=== PATIENT | female | born 1930 | race Caucasian/White ===

== ENCOUNTER 2016-05-20 01:59 | Emergency (ER) | payer OTHER, MEDICARE ==
--- NOTE | 2016-05-20 02:04 | PDOC ---
History of Present Illness - General Chief Complaint: Pain, Acute Stated Complaint: PAIN TO BOTTOM OF RIGHT FOOT Time Seen by Provider: 05/20/16 02:03 - History of Present Illness Initial Comments: 05/20/16 02:20 This 86-year-old woman with a history of hypertension and anemia presents with a two-day history of right plantar foot pain. Patient denies trauma or overuse. No new footwear; patient states that she has been using the same flat loafers for some time. Pain is worse with weightbearing/walking. No previous history of pain in either foot. No other extremity symptoms. She denies paresthesias/numbness/joint swelling. No history of edema of the proximal right leg. Patient states that she took [id number]-lnc-ldlszie naproxen this morning without significant relief in her pain. Patient was seen by Dr. Evans with UTI; she was prescribed ciprofloxacin which she has taken intermittently because she states that she does not like the way it makes her feel. She denies dysuria/urinary frequency or urgency/abdominal or back pain. She has not had fever/chills or nausea. Past History - Past Medical History Allergies/Adverse Reactions: Allergies Allergy/AdvReac Type Severity Reaction Status Date / Time cephalexin monohydrate Allergy Verified 05/20/16 02:01 [From [employer]] Home Medications: Ambulatory Orders Amlodipine Besylate [Norvasc -] 5 mg PO DAILY 09/01/12 Anemia: Yes Asthma: No Cancer: No Cardiac Disorders: No CVA: No COPD: No CHF: No Dementia: No Diabetes: No GI Disorders: Yes (ANEMIA) Disorders: No HTN: Yes Hypercholesterolemia: No Liver Disease: No Seizures: No Thyroid Disease: No - Surgical History Abdominal Surgery: Yes Appendectomy: Yes Cardiac Surgery: No Cholecystectomy: No Lung Surgery: No Neurologic Surgery: No Orthopedic Surgery: No - Psycho/Social/Smoking Cessation Hx Anxiety: Yes Suicidal Ideation: No Smoking Status: No Smoking History: Never smoked Have you smoked in the past 12 months: No Number of Cigarettes Smoked Daily: 0 Hx Alcohol Use: No Drug/Substance Use Hx: No Substance Use Type: None Hx Substance Use Treatment: No Review of Systems - Review of Systems Able to Perform ROS?: Yes Comments:: 12 point review of systems is negative except for what is noted in the history of present illness *Physical Exam - Physical Exam Comments: GENERAL: Elderly female, alert and oriented 3, in no acute distress HEAD: Normal with no signs of trauma. EYES: PERRLA, EOMI, sclera anicteric, conjunctiva clear. ENT: Ears normal, nares patent, oropharynx clear without exudates. Dry mucous membranes. NECK: Normal range of motion, supple without lymphadenopathy, JVD, or masses. LUNGS: Breath sounds equal, clear to auscultation bilaterally. No wheezes, and no crackles. HEART:Regular rate and rhythm, normal S1 and S2 without murmur, rub or gallop. ABDOMEN:.normal bowel sounds No guarding,tenderness or rebound.No masses No distention. EXTREMITIES: Right footmild tenderness plantar aspect mid to hindfoot without palpable lesions or deformity Plantar tenderness worsened with dorsiflexion of toes Strongly palpable dorsalis pedis pulse at mid foot No deformity or tenderness of the dorsal aspect of the foot; distal extremity warm and dry No edema/tenderness/cords of right lower leg Remainder of the extremity exam was normal NEUROLOGICAL: Cranial nerves II through XII grossly intact. Normal speech. No focal neurological deficits SKIN: Warm, Dry, normal turgor, no rashes or lesions noted. Medical Decision Making - Medical Decision Making Right foot x-ray reveals small heel spur but no evidence of fracture or dislocation Clinical presentation most consistent with plantar fasciitis, in light of increased tenderness of the plantar aspect of the foot with dorsiflexion of the toes. Since patient had taken juxj-ycy-zodlvjn naproxen earlier in the day without significant relief, we will give the patient small (400 mg) dose of ibuprofen here and suggest 400 mg up to 3 times a day (taken with food) as needed. Patrick wrap applied to patient's right foot. She is been instructed to remove this during at night. Meanwhile, the patient should follow-up with Dr. Evans tomorrow by phone and follow-up in person as scheduled. Also, she should consider follow-up with either orthopedic group (referral information for [facility] given to patient ) or primer inspector for further advice regarding the diagnosis of plantar fasciitis *DC/Admit/Observation/Transfer Diagnosis at time of Disposition: Plantar fasciitis - Discharge Dispostion Disposition: HOME Condition at time of disposition: Stable - Referrals Referrals: Arsen Evans MD [Primary Care Provider] - Call tomorrow Froylan Fraser MD [Staff Physician] - 1 week - Patient Instructions Printed Discharge Instructions: DI for Plantar Fasciitis Additional Instructions: ibuprofen(motrin/advil)2 tabs up to 3 times a day[take with food] elevate foot as much as possible patrick wrap during day(take off at night) call Dr Evans tomorrow and followup as planned followup with orthopedic group(Dr Fraser)within 1 week
[2016-05-20 02:10] VITALS: BP 148/66; PULSE 70; TEMP 97.9; BMI 25.8
[2016-05-20] MEDS ORDERED: IBUPROFEN 400 MG TABLET (FP) PO ONE ×2 (02:58→02:59)
== END 2016-05-20 03:07 | disposition home or self-care (01) ==
LOC: FER 01:59
DX: M72.2 Plantar fascial fibromatosis (principal); D64.9 Anemia, unspecified; I10 Essential (primary) hypertension
CPT/HCPCS: 73630-TC-RT; 99281-25

== ENCOUNTER 2017-05-20 03:58 | Inpatient (IN) | payer OTHER, MEDICARE ==
--- NOTE | 2017-05-20 04:19 | PDOC ---
History of Present Illness - General Chief Complaint: Respiratory Stated Complaint: COUGH X ONE MONTH Time Seen by Provider: 05/20/17 04:18 History Source: Patient Exam Limitations: No Limitations - History of Present Illness Initial Comments: 05/20/17 04:20 This is a 87-year-old female who is brought in by her son for evaluation of coughing. Patient said she has been coughing 1 month. Patient had a recent upper respiratory tract infection and said it has persisted as a cough for approximately one month. Patient denies any chest pain or shortness of breath. Patient however is noted to be tachypnea here in the emergency room. Patient denies any fevers or chills. Patient denies any production of sputum. Patient denies any nausea vomiting or diarrhea. PAST MEDICAL HISTORY: no significant history PAST SURGICAL HISTORY: no significant history FAMILY HISTORY: no pertinant history SOCIAL HISTORY: Pt lives with family and is retired. MEDICATIONS: reviewed ALLERGIES: As per nursing notes Review of Systems General: No fevers or chills, no weakness, no weight loss HEENT: No change in vision. No sore throat,. No ear pain CardioVascular: No chest pain, + shortness of breath Respiratory:+ cough, and wheezing. Gastrointestinal: no nausea, vomitting, diarrhea or constipation, No rectal bleeding Genitourinary: No dysuria, hematuria, or frequency Musculoskeletal: No joint or muscle pain or swelling Neurologic: No headache, vertigo, dizziness or loss of consciousness Psychiatric: nor depression Skin: No rashes or easy bruising Endocrine: no increased thirst or abnormal weight change Allergic: no skin or latex allergy All other systems reviewed and normal Exam: General: Well-nourished well-developed individual, in mild respiratory distress HEENT: Throat: Normal, tonsils normal, no erythema or exudate Neck: Supple, no meningeal signs, no lymphadenopathy Eyes::Pupils equal reactive and round, extraocular motion intact Chest: Nontender to palpation Cardiac: Tachycardic with irregularly irregular rate and rhythm, Respiratory: Decreased breath sounds bilateral with expiratory wheezing bilateral primarily at bases Abdomen: Soft, nondistended, normal bowel sounds, nontender to palpation diffusely Extremities: Warm, dry, no cyanosis, clubbing, or edema Skin: No rashes Neuro: Alert and oriented x3, CN II - XII intact, nonfocal exam with normal strength, normal sensation, normal reflexes, normal gait, Psych: Normal mood and affect Assessment and plan: This is an 87-year-old female who is at her baseline healthy. Patient has had a week of upper respiratory tract symptoms and cough. Patient comes in for evaluation. Patient is noted to be coughing in the emergency room and tachypnea as well as tachycardic and in new onset A. fib. Differential diagnosis includes new-onset A. fib, pneumonia, coronary artery disease, upper respiratory tract infection, bronchitis Will obtain workup including CBC, comp. Lactic acid, troponin, EKG, urine, urine cultures, blood, urine blood cultures, venous blood gas. We will start DuoNeb's for the wheezing, and give prednisone will monitor for increase in heart rate as patient is already tachycardia at 1:30 Will follow-up workup and reassess Reassessment 05:20 Patient is tachycardia at 150 after the second DuoNeb. Will discontinue DuoNeb' s at this time as wheezing is somewhat improved and oxygen is 98%. Reassessment and repeat vitals at 05:40 15 minutes after stopping the DuoNeb heart rate is now down to 125 which is a little less than what patient came in it. EKG shows atrial fibrillation which is new onset with some flipped T's and mild ST depression anterior laterally most likely secondary to some hypoxia and the afib. a fib appears to be new onset Patient's symptoms have improved and decreased wheezing. Chest x-ray shows bilateral infiltrates at the bases will start patient on Levaquin 750 mg IV as she is ALLERGIC to Keflex. 05/20/17 06:22 Patient's O2 sat is improved but still low 90s. patient's heart rate is now around 110, patient's blood pressure is stable and she does still remained tachypnea. Will increase oxygen to 3 L by nasal cannul which improved her O2 sat to 95- 96% Patient's initial troponin is measurable at 0.02 Patient's hemoglobin was 7.7 however on review of prior visits patient back in 2016 had a hemoglobin of 7.1 that appeared to be her baseline. Patient will be admitted to an impatient telemetry bed for management of her pneumonia, rule her out for ACS, and further evaluation of her anemia. Patient's BUN and creat were somewhat elevated. Patient not given full sepsis fluids as her blood pressure is stable and she was afebrile, she had no elevated white count or left shift. And her lactic acid is normal 05/20/17 06:51 Discussed admission with hospitalist as well as Dr. waller patient accepted for admission to a telemetry bed here at [facility] . Signout given to the admitting hospitalist, who accepts the patient. Discussed plan with the patient and her son at bedside, Patient and son aware of the plan and agree. Patient is clinically improved and stable. Past History - Past Medical History Allergies/Adverse Reactions: Allergies Allergy/AdvReac Type Severity Reaction Status Date / Time cephalexin monohydrate Allergy Verified 05/20/16 02:01 [From [employer]] Home Medications: Ambulatory Orders Amlodipine Besylate [Norvasc -] 5 mg PO DAILY 09/01/12 Anemia: Yes Asthma: No Cancer: No Cardiac Disorders: No CVA: No COPD: No CHF: No Dementia: No Diabetes: No GI Disorders: Yes (ANEMIA) Disorders: No HTN: Yes Hypercholesterolemia: No Liver Disease: No Seizures: No Thyroid Disease: No - Surgical History Abdominal Surgery: Yes Appendectomy: Yes Cardiac Surgery: No Cholecystectomy: No Lung Surgery: No Neurologic Surgery: No Orthopedic Surgery: No - Suicide/Smoking/Psychosocial Hx Smoking Status: No Smoking History: Never smoked Have you smoked in the past 12 months: No Number of Cigarettes Smoked Daily: 0 Hx Alcohol Use: No Drug/Substance Use Hx: No Substance Use Type: None Hx Substance Use Treatment: No ED Treatment Course - LABORATORY CBC & Chemistry Diagram: 05/20/17 04:57 05/20/17 04:57 *DC/Admit/Observation/Transfer Diagnosis at time of Disposition: New onset a-fib Pneumonia Qualifiers: Pneumonia type: due to unspecified organism Laterality: bilateral Lung location : lower lobe of lung Qualified Code(s): J18.9 - Pneumonia, unspecified organism - Discharge Dispostion Condition at time of disposition: Stable Admit: Yes - Referrals Referrals: Arsen Evans MD [Primary Care Provider] - - Patient Instructions - Post Discharge Activity
[2017-05-20 04:21] VITALS: BMI 25.8
[2017-05-20] MEDS ORDERED: DEXAMETHASONE SOD PHOSPHATE 10 MG/1 ML VIAL IVPUSH ONE (04:29)
[2017-05-20] MEDS ORDERED: DEXAMETHASONE SOD PHOSPHATE 10 MG/1 ML VIAL ONE (04:38)
[2017-05-20] MEDS ORDERED: ALBUTEROL SO4 2.5/IPRATROPIUM 0.5 INH SOL 3 ML VIAL.NEB. NEB ONE (04:38)
[2017-05-20] MEDS: ALBUTEROL SO4 2.5/IPRATROPIUM 0.5 INH SOL 3 ML VIAL.NEB. NEB SCH ×2 (04:40→05:02)
[2017-05-20] MEDS ORDERED: SODIUM CHLORIDE 1,000 ML IV STA (04:45)
[2017-05-20] MEDS ORDERED: dilTIAZem HCL 60 MG TABLET (FP) PO ONE (05:17)
[2017-05-20] MEDS ORDERED: dilTIAZem HCL 30 MG TABLET (FP) ONE (05:20)
[2017-05-20 05:22] LABS: BASO % 2.4 % (0-2.0); EOS % 1.1 % (0-4.5); HEMATOCRIT 27.5 % (32.4-45.2); HEMOGLOBIN 7.7 GM/dL (10.7-15.3); LYMPH % 13.1 % (8-40); MCHC 27.8 g/dl (32.0-36.0); MEAN CELL VOLUME 63.9 fl (80-96); MEAN PLT VOLUME 8.9 fl (7.5-11.1); MONO % 8.5 % (3.8-10.2); NEUT % 74.9 % (42.8-82.8); PLATELET COUNT 311 K/MM3 (134-434); RBC 4.31 M/mm3 (3.60-5.2); RDW 21.1 % (11.6-15.6); WHITE BLOOD COUNT 7.8 K/mm3 (4.0-10.0)
[2017-05-20 05:23] LABS: MCH 17.8 pg (25.7-33.7)
[2017-05-20 05:24] LABS: VENOUS PC02 56.7 mmHg (38-52); VENOUS PH 7.32 (7.32-7.42); VENOUS PO2 25.3 mmHg (28-48)
[2017-05-20] MEDS ORDERED: AZITHROMYCIN 500 MG VIAL IVPB ONE (05:30)
[2017-05-20] MEDS ORDERED: cefTRIAXone SODIUM 1 GM VIAL ONE (05:30)
[2017-05-20] MEDS ORDERED: AZITHROMYCIN IVPB 500 MG in DEXTROSE 5%-WATER - 250 ML IVPB ONE (05:31)
[2017-05-20 05:41] LABS: ALBUMIN 3.1 g/dl (3.4-5.0); ALK PHOS 166 U/L (45-117); ANION GAP 12 (8-16); BILIRUBIN,TOTAL 0.7 mg/dL (0.2-1.0); BLOOD UREA NITROGEN 25 mg/dL (7-18); CALCIUM 9.2 mg/dL (8.5-10.1); CHLORIDE 109 mmol/L (98-107); CO2 24 mmol/L (21-32); CREATININE 1.2 mg/dL (0.55-1.02); GLUCOSE,RANDOM 128 mg/dL (74-106); POTASSIUM 4.3 mmol/L (3.5-5.1); SGOT/AST 24 U/L (15-37); SGPT/ALT 27 U/L (12-78); SODIUM 145 mmol/L (136-145); TOT PROT 6.1 g/dl (6.4-8.2)
--- NOTE | 2017-05-20 06:49 | HP ---
CHIEF COMPLAINT: shortness of breath PCP: Dr Evans HISTORY OF PRESENT ILLNESS: Patient is a 87 y/o female with a past medical history of hypertension, nenal calculi, and iron deficency anemia. Patient reports one month of shortness of breath and cough. She reports the cough persisted for one month, however, she developed dyspnea upon exertion within the past week. Patient reports the shortness of breath worsened within past 24 hours as result she sought evaluation in the emergency department. ER course was notable for: (1)spo2 88% on room air (2)ekg afib with rapid ventricular response, rate 134 (3) chest xray pulmonary vascular congestion with superimposed bilateral infilitrates, cardiomegly. Recent Travel: none PAST MEDICAL HISTORY: hypertension and iron deficency anemia PAST SURGICAL HISTORY: urethral stent Social History: retired, resides at home alone Smoking: none Alcohol: none Drugs: none Family History: mother decieased hear failure father [place] Allergies cephalexin monohydrate [From [employer]] Allergy (Verified 05/20/16 02:01) HOME MEDICATIONS: Home Medications Medication Instructions Recorded Amlodipine Besylate [Norvasc -] 5 mg PO DAILY 09/01/12 REVIEW OF SYSTEMS CONSTITUTIONAL: Absent: fever, chills, diaphoresis, generalized weakness, malaise, loss of appetite, weight change HEENT: Absent: rhinorrhea, nasal congestion, throat pain, throat swelling, difficulty swallowing, mouth swelling, ear pain, eye pain, visual changes CARDIOVASCULAR: Absent: chest pain, syncope, palpitations, irregular heart rate, lightheadedness , peripheral edema RESPIRATORY: Present: : cough, shortness of breath, dyspnea with exertion Absent: orthopnea, wheezing, stridor, hemoptysis GASTROINTESTINAL: Absent: abdominal pain, abdominal distension, nausea, vomiting, diarrhea, constipation, melena, hematochezia GENITOURINARY: Absent: dysuria, frequency, urgency, hesitancy, hematuria, flank pain, genital pain MUSCULOSKELETAL: Absent: myalgia, arthralgia, joint swelling, back pain, neck pain SKIN: Absent: rash, itching, pallor HEMATOLOGIC/IMMUNOLOGIC: Absent: easy bleeding, easy bruising, lymphadenopathy, frequent infections ENDOCRINE: Absent: unexplained weight gain, unexplained weight loss, heat intolerance, cold intolerance NEUROLOGIC: Absent: headache, focal weakness or paresthesias, dizziness, unsteady gait, seizure, mental status changes, bladder or bowel incontinence PSYCHIATRIC: Absent: anxiety, depression, suicidal or homicidal ideation, hallucinations. PHYSICAL EXAMINATION Vital Signs - 24 hr 05/20/17 05/20/17 05/20/17 04:15 04:45 04:54 Temperature 98.1 F 98.7 F Pulse Rate 130 H 132 H Pulse Rate [ Right] Respiratory 26 H Rate Blood Pressure 143/100 Blood Pressure [Right] O2 Sat by Pulse 95 92 L Oximetry (%) 05/20/17 05:24 Temperature Pulse Rate Pulse Rate [ 128 H Right] Respiratory 24 Rate Blood Pressure Blood Pressure 122/88 [Right] O2 Sat by Pulse 95 Oximetry (%) GENERAL: Awake, alert, and fully oriented, anxious. HEAD: Normal with no signs of trauma. EYES: Pupils equal, round and reactive to light, extraocular movements intact, sclera anicteric, conjunctiva clear. No lid lag. EARS, NOSE, THROAT: Ears normal, nares patent, oropharynx clear without exudates. Moist mucous membranes. NECK: Normal range of motion, supple without lymphadenopathy, + JVD, or masses. LUNGS: Breath sounds equal, bilateral inspiratory wheeze to apexes, rales noted to bases, no crackles. rr 30, + accessory muscle use. HEART: Regular rate and rhythm, normal S1 and S2 without murmur, rub or gallop. ABDOMEN: Soft, nontender, not distended, normoactive bowel sounds, no guarding, no rebound, no masses. No hepatomegaly or splenomegaly. MUSCULOSKELETAL: Normal range of motion at all joints. No bony deformities or tenderness. No CVA tenderness. UPPER EXTREMITIES: 2+ pulses, warm, well-perfused. No cyanosis. No clubbing. No peripheral edema. LOWER EXTREMITIES: 2+ pulses, warm, well-perfused. No calf tenderness. No peripheral edema. NEUROLOGICAL: Cranial nerves II-XII intact. Normal speech. Normal gait. PSYCHIATRIC: Cooperative. Good eye contact. Appropriate mood and affect. SKIN: Warm, dry, normal turgor, no rashes or lesions noted, normal capillary refill. Laboratory Results - last 24 hr 05/20/17 05/20/17 05/20/17 04:21 04:57 04:57 WBC 7.8 RBC 4.31 Hgb 7.7 L Hct 27.5 L MCV 63.9 L MCH 17.8 L MCHC 27.8 L RDW 21.1 H Plt Count 311 MPV 8.9 Neutrophils % 74.9 Lymphocytes % 13.1 Monocytes % 8.5 Eosinophils % 1.1 Basophils % 2.4 H VBG pH POC VBG pCO2 POC VBG pO2 Mixed VBG HCO3 Sodium 145 Potassium 4.3 Chloride 109 H Carbon Dioxide 24 Anion Gap 12 BUN 25 H Creatinine 1.2 H Creat Clearance w eGFR 42.70 Random Glucose 128 H Lactic Acid Calcium 9.2 Total Bilirubin 0.7 AST 24 ALT 27 Alkaline Phosphatase 166 H Troponin I 0.02 Total Protein 6.1 L Albumin 3.1 L 05/20/17 05/20/17 04:57 04:57 WBC RBC Hgb Hct MCV MCH MCHC RDW Plt Count MPV Neutrophils % Lymphocytes % Monocytes % Eosinophils % Basophils % VBG pH 7.32 POC VBG pCO2 56.7 H POC VBG pO2 25.3 L Mixed VBG HCO3 28.3 H Sodium Potassium Chloride Carbon Dioxide Anion Gap BUN Creatinine Creat Clearance w eGFR Random Glucose Lactic Acid 1.5 Calcium Total Bilirubin AST ALT Alkaline Phosphatase Troponin I Total Protein Albumin ASSESSMENT/PLAN: f/e/n - low sodium diet - replete lytes prn ppx - oob - scd - blanca dispo: pt requires inpatient telemetry Problem List - Problem (1) Hypertension Assessment/Plan: - b/p at goal, start metroprolol - b/p q 4h Code(s): I10 - ESSENTIAL (PRIMARY) HYPERTENSION (2) New onset a-fib Assessment/Plan: -maricel vasc score of 4, will consider noac, pending stool guiac, cardizem given in ED, in setting of acute heart failure, will start metoprolol - continous cardiac monitoring - appreciate cardiology input Code(s): I48.91 - UNSPECIFIED ATRIAL FIBRILLATION (3) Pneumonia Assessment/Plan: - chest xray reviewed, suspicious for superimposed pna, will continue levaquin - monitor cbc and fever trend Code(s): J18.9 - PNEUMONIA, UNSPECIFIED ORGANISM Qualifiers: Pneumonia type: due to unspecified organism Laterality: bilateral Lung location: lower lobe of lung Qualified Code(s): J18.9 - Pneumonia, unspecified organism (4) Microcytic anemia Assessment/Plan: -hgb 7.7 baseline 10.2, pt reports a history of iron deficency anemia, hgb maybe dilutional in setting of chf, pending stool guiac, iron studies - repeat cbc in PM Code(s): D50.9 - IRON DEFICIENCY ANEMIA, UNSPECIFIED (5) Congestive heart failure (CHF) Assessment/Plan: - pending bnp, spo2 91% on 4lnc with tachypnea, bipap ordered - start lasix 40mg iv x 1 - stat echo ordered - strict i/o and daily weight Code(s): I50.9 - HEART FAILURE, UNSPECIFIED Qualifiers: Heart failure type: unspecified Heart failure chronicity: acute Qualified Code(s): I50.9 - Heart failure, unspecified Visit type - Emergency Visit Emergency Visit: Yes ED Registration Date: 05/20/17 Care time: The patient presented to the Emergency Department on the above date and was hospitalized for further evaluation of their emergent condition. - New Patient This patient is new to me today: Yes Date on this admission: 05/20/17 - Critical Care Critical Care patient: Yes Total Critical Care Time (in minutes): 45 Critical Care Statement: The care of this patient involved high complexity decision making to prevent further life threatening deterioration of the patient 's condition and/or to evaluate & treat vital organ system(s) failure or risk of failure. Hospitalist Screening - Colonoscopy Questionnaire Colonoscopy Questionnaire: Colonoscopy Questionnaire - Patient: 50 - 75 years old and never had a screening colonoscopy: No History of colon or rectal polyps, or CA: No History of IBD, Crohn's disease or UC: No History of abdominal radiation therapy as a child: No - Relative: 1 with colon or rectal CA, or polyps at age 60 or younger: Unknown Colon or rectal CA diagnosed at age 45 or younger: Unknown Multiple relatives with colon or rectal CA: Unknown - Outcome: Screening Result: Negative Screen
[2017-05-20] MEDS ORDERED: FUROSEMIDE 40 MG/4 ML INJECTABLE VIAL IVPUSH ONE (08:00)
[2017-05-20] MEDS ORDERED: metoPROLOL SUCCINATE 25 MG TAB.SR.24H (FP) PO ONE (08:00)
[2017-05-20] MEDS ORDERED: metoPROLOL SUCCINATE 25 MG TAB.SR.24H (FP) ONE (08:18)
[2017-05-20] MEDS ORDERED: methylPREDNISolone NA SUCC 40 MG/1 ML VIAL ONE (08:18)
[2017-05-20] MEDS ORDERED: FUROSEMIDE 40 MG/4 ML INJECTABLE VIAL ONE (08:18)
[2017-05-20] MEDS: methylPREDNISolone NA SUCC 40 MG/1 ML VIAL IVPUSH SCH ×3 (08:20→21:12)
[2017-05-20 09:40] LABS: URINE APPEARANCE Clear; URINE BILIRUBIN Negative (NEGATIVE); URINE BLOOD Negative (NEGATIVE); URINE GLUCOSE (UA) Negative (NEGATIVE); URINE KETONE Negative (NEGATIVE); URINE NITRITE Negative (NEGATIVE); URINE PROTEIN Negative (NEGATIVE); URINE UROBILINOGEN 0.2 (0.2-1.0)
[2017-05-20 10:12] LABS: URINE COLOR YELLOW; URINE LEUK ESTERASE TRACE (NEGATIVE)
[2017-05-20 11:04] LABS: EPI CELLS FEW /HPF; URINE BACTERIA NONE SEEN /hpf (NEGATIVE); URINE RBC 0-1 /hpf (0-3)
--- NOTE | 2017-05-20 12:30 | CONSULT ---
Consult Consult Specialty:: Cardiology Referred by:: Erika Crook Reason for Consultation:: New afib - History of Present Illness Chief Complaint: Persistent cough for 1 month History of Present Illness: 87 yo female, with hx HTN, brought in by her son for evaluation of coughing. Patient has no history of AR, CHF. She wa stold years ago, by Dr Donahue (her PMD then) that she had "fluid behind the heart" -> no direct treatment. About 8-9 yrs ago, she had CP -. [facility] -> "inconclusive" -> saw cardiology in follow up (? name) and was told that nothing was wrong. She denies CP since. She has had mild CANDI for years. About a month ago, she started with a dry cough -. mostly when on her back in bed -. better when on stomach. She denies wt gain, worsening edema. She does have GERD at baseline -. prn anti-acids In the ER , she was found in rapid afib 130s, wheezing -> initially treated with duoneb and with abx for pneumonia -> HR got worse with duoneB -better with BB - History Source History Provided By: Patient - Past Medical History Cardio/Vascular: Yes: HTN Renal/: Yes: Renal Calculi Heme/Onc: Yes: Anemia (fe def) Psych: Yes: Anxiety, Depression - Past Surgical History Past Surgical History: Yes: Hysterectomy, Tonsillectomy - Alcohol/Substance Use Hx Alcohol Use: No - Smoking History Smoking history: Never smoked Have you smoked in the past 12 months: No Aproximately how many cigarettes per day: 0 - Social History Usual Living Arrangement: Alone Home Medications - Allergies Allergies/Adverse Reactions: Allergies Allergy/AdvReac Type Severity Reaction Status Date / Time cephalexin monohydrate Allergy Verified 05/20/16 02:01 [From Keflex] - Home Medications Home Medications: Ambulatory Orders Amlodipine Besylate [Norvasc -] 5 mg PO DAILY 09/01/12 Family Disease History - Family Disease History Family Disease History: Heart Disease: Mother (CHF in her 60s) Other Family History: 4 children Review of Systems - Review of Systems Constitutional: denies: No Symptoms, Chills, Diaphoresis, Fever, Lethargy, Loss of Appetite, Malaise, Night Sweats, Unintentional Wgt. Loss, Weakness, Other Eyes: denies: No Symptoms, Blind Spots, Blurred Vision, Double Vision, Eye Pain , Floaters, Photophobia, Recent Change in Vision, Other Cardiovascular: reports: Edema, Shortness of Breath Respiratory: reports: Cough Gastrointestinal: reports: No Symptoms Genitourinary: denies: No Symptoms, Burning, Discharge, Dysuria, Flank Pain, Frequency, Hematuria, Incontinence, Lesions, Menses, Pain, Testicular Mass, Testicular Pain, Testicular Swelling, Urgency, Vaginal Bleeding, Other Musculoskeletal: denies: No Symptoms, Back Pain, Crepitus, Decreased ROM, Extremity Pain, Joint Pain, Joint Swelling, Muscle Pain, Muscle Cramps, Muscle Weakness, Other Neurological: denies: No Symptoms, Change in LOC, Change in Speech, Confusion, Dizziness, Headache, Incoordination, Numbness, Parasthesia, Pre-Existing Deficit , Seizure, Syncope, Tremors, Unsteady Gait, Weakness, Other Psychiatric: reports: Anxiety, Depression Physical Exam Vital Signs: Vital Signs Temperature 98.7 F 05/20/17 04:54 Pulse Rate 58 L 05/20/17 09:13 Respiratory Rate 24 05/20/17 09:13 Blood Pressure 118/58 05/20/17 09:13 O2 Sat by Pulse Oximetry (%) 91 L 05/20/17 09:13 Constitutional: Yes: No Distress Eyes: Yes: Conjunctiva Clear HENT: Yes: Atraumatic Neck: Yes: Supple Cardiovascular: Yes: Pulse Irregular Respiratory: Yes: Rales (few at bases). No: Rhonchi, Wheezes Gastrointestinal: Yes: Normal Bowel Sounds, Soft. No: Tenderness Edema: No Peripheral Pulses WNL: Yes Neurological: Yes: Alert, Oriented Psychiatric: Yes: Alert, Oriented Labs: CBC, BMP 05/20/17 04:57 05/20/17 04:57 Imaging - Results Chest X-ray: Report Reviewed, Image Reviewed EKG: Report Reviewed (Afib at 134, ant-lat St-T changes) Assessment/Plan 87 yo female with the above history, here with dry cough for a month -. found with evidence of CHF, rapid afib and possible URI/?pna. The CHF may be from diastolic dysfunction in setting of rapid afib. The CHF is mild and I wonder about other causes of bronchospasm (such as infection, underlying lung dz, though no hx) She has a high CHADs/modified CHADS score and should be anticoagulated chronically No evidence of ACS Rec: Torpol XL 50 daily -. follow for worsening bronchospasm Lasix 40 mg IV daily Lovenox treatment dose -. switch to Po eliquis 5 biD tomorrow, if continues to improve Follow on echo results Will need outpt stress test , holter Thanks! We'll follow! D/w pt and family at length D/w Erika Crook
[2017-05-20] MEDS: ENOXAPARIN NA (PORCINE) 60 MG/0.6 ML DISP.SYRIN SQ SCH ×2 (12:50→21:12)
--- NOTE | 2017-05-20 13:43 | EKG ---
Test Reason : Blood Pressure : / mmHG Vent. Rate : 134 BPM Atrial Rate : 122 BPM P-R Int : 000 ms QRS Dur : 098 ms QT Int : 318 ms P-R-T Axes : 000 017 191 degrees QTc Int : 474 ms ATRIAL FIBRILLATION WITH RAPID VENTRICULAR RESPONSE ABNORMAL ECG NO PREVIOUS ECGS AVAILABLE Confirmed by SUE ACOSTA, JANICE ([id number]) on 05/20/2017 1:43:41 PM Referred By: MD SORIA Confirmed By:JANICE ROGERS MD
[2017-05-20] MEDS: ALBUTEROL SO4 2.5/IPRATROPIUM 0.5 INH SOL 3 ML VIAL.NEB. NEB PRN (21:11)
--- NOTE | 2017-05-21 08:22 | PN ---
Physical Exam: SUBJECTIVE: Patient seen and examined, reports feeling short of breath, patient denies any chest pain OBJECTIVE: Patient is a 87 y/o female with a past medical history of hypertension, nenal calculi, and iron deficiency anemia. Patient was admitted from the emergency department for chf, new onset afib, and hypertension. Vital Signs Period Temp Pulse Resp BP Sys/Marino Pulse Ox Last 24 Hr 97.3 F-98.6 F 58-106 18-24 101-127/46-69 85-98 GENERAL: The patient is awake, alert, and fully oriented, in no acute distress. HEAD: Normal with no signs of trauma. EYES: PERRL, extraocular movements intact, sclera anicteric, conjunctiva clear. No ptosis. ENT: Ears normal, nares patent, oropharynx clear without exudates, moist mucous membranes. NECK: Trachea midline, full range of motion, supple. LUNGS: Breath sounds equal, rhonchi to apexes, rales to bilateral bases, no wheezes, no crackles, no accessory muscle use. HEART: Regular rate and rhythm, S1, S2 without murmur, rub or gallop. ABDOMEN: Soft, nontender, nondistended, normoactive bowel sounds, no guarding, no rebound, no hepatosplenomegaly, no masses. EXTREMITIES: 2+ pulses, warm, well-perfused, no edema. NEUROLOGICAL: Cranial nerves II through XII grossly intact. Normal speech, gait not observed. PSYCH: Normal mood, normal affect. SKIN: Warm, dry, normal turgor, no rashes or lesions noted Laboratory Results - last 24 hr CBC WBC 4.3 K/mm3 (4.0-10.8) 05/21/17 07:40 RBC 3.81 M/mm3 (3.60-5.2) 05/21/17 07:40 Hgb 7.1 GM/dl (10.7-15.3) L 05/21/17 07:40 Hct 24.0 % (32.4-45.2) L 05/21/17 07:40 MCV 63.0 fl (80-96) L 05/21/17 07:40 MCH 18.7 pg (25.7-33.7) L 05/21/17 07:40 MCHC 29.6 g/dl (32.0-36.0) L 05/21/17 07:40 RDW 19.2 % (11.6-15.6) H D 05/21/17 07:40 Plt Count 308 K/MM3 (134-434) 05/21/17 07:40 MPV 8.6 fl (7.5-11.1) 05/21/17 07:40 Neutrophils % 82.8 % (42.8-82.8) 05/21/17 07:40 Lymphocytes % 10.6 % (8-40) 05/21/17 07:40 Monocytes % 6.4 % (3.8-10.2) 05/21/17 07:40 Eosinophils % 0.1 % (0-4.5) 05/21/17 07:40 Basophils % 0.1 % (0-2.0) 05/21/17 07:40 Retic Count 2.25 % (0.5-1.5) H 05/20/17 08:15 CMP Sodium 140 mmol/L (136-145) 05/21/17 07:40 Potassium 4.7 mmol/L (3.5-5.1) 05/21/17 07:40 Chloride 107 mmol/L (98-107) 05/21/17 07:40 Carbon Dioxide 25 mmol/L (22-28) 05/21/17 07:40 Anion Gap 8 (8-16) 05/21/17 07:40 BUN 35 mg/dl (7-18) H 05/21/17 07:40 Creatinine 1.5 mg/dl (0.6-1.3) H D 05/21/17 07:40 Creat Clearance w eGFR 33.00 (>60) 05/21/17 07:40 Random Glucose 183 mg/dl (74-106) H D 05/21/17 07:40 Lactic Acid 1.4 mmol/L (0.0-2.0) 05/21/17 07:40 Calcium 9.2 mg/dl (8.4-10.2) 05/21/17 07:40 Phosphorus 4.5 mg/dl (2.5-4.6) 05/21/17 07:40 Magnesium 1.8 mg/dL (1.8-2.4) 05/20/17 08:15 Total Bilirubin 0.6 mg/dl (0.2-1.0) D 05/21/17 07:40 AST 18 U/L (10-42) 05/21/17 07:40 ALT 19 U/L (10-40) D 05/21/17 07:40 Alkaline Phosphatase 117 U/L (32-92) H D 05/21/17 07:40 Creatine Kinase 14 IU/L (26-192) L 05/21/17 07:40 Troponin I < 0.03 ng/ml (0.00-0.06) 05/21/17 07:40 B-Natriuretic Peptide 3417.30 pg/ml (5-450) H 05/20/17 08:15 Total Protein 5.4 g/dl (6.4-8.3) L 05/21/17 07:40 Albumin 2.9 g/dl (3.5-5.0) L 05/21/17 07:40 Active Medications Generic Name Dose Route Start Last Admin Trade Name Freq PRN Reason Stop Dose Admin Albuterol/Ipratropium 1 amp 05/20/17 07:49 05/20/17 21:11 Duoneb - NEB 1 amp RQID PRN Administration SHORT OF BREATH/WHEEZING Enoxaparin Sodium 60 mg 05/20/17 11:00 05/20/17 21:12 Lovenox - SQ 60 mg BID TRES Administration Furosemide 40 mg 05/21/17 10:00 Lasix Injection - IVPUSH DAILY [facility] Methylprednisolone Sodium Succinate 40 mg 05/20/17 07:45 05/20/17 21:12 Solu-Medrol - IVPUSH 40 mg TID TRES Administration Metoprolol Succinate 50 mg 05/21/17 10:00 Toprol Xl - PO DAILY [facility] Microbiology 05/20/17 09:25 Urine - Urine Clean Catch Urine Culture - Final 05/20/17 04:57 Blood - Peripheral Venous Blood Culture - Preliminary NO GROWTH OBTAINED AFTER 24 HOURS, INCUBATION TO CONTINUE FOR 4 DAYS. 05/20/17 04:57 Blood - Peripheral Venous Blood Culture - Preliminary NO GROWTH OBTAINED AFTER 24 HOURS, INCUBATION TO CONTINUE FOR 4 DAYS. IMAGING chest xray pulmonary vascular congestion with superimposed bilateral infilitrates, cardiomegly. ekg afib with rapid ventricular response, rate 134 chest xray (05/21/17) bilateral pleural effusions with compressive atelactasis ASSESSMENT/PLAN: 1) Cardiovascular new onset afib - rate controlled continue toprol 50mg daily, continous cardiac monitoring - continue lovenox - echo ef 70%, diastolic dysfunction, severe TR - pending tsh - cardiology, Dr Thomas, consulted and following acute diastolic congestive heart failure - echo reviewed, continue lasix 40mg iv daily - continue I/O and daily weight, ramirez cather ordered for accurate measurements of I/O hypertension - continue toprol, b/p at goal 2) pulm bilateral pleural effusions - repeat chest xray today billateral pleural effusions - spo2 95% on 3L NC, keep spo2 above 92% with supplemental O2 and bipap as needed - appreciate pulmonary input, pt may require a thoracentesis - continue emperic levaquin 3) heme/onc microcytic anemia - repeat hgb today, 7.1, baseline 10.2, stool guiac is negative, pending iron studies, will order 2 units of prbc and repeat hgb at 1999. f/e/n - low sodium diet - replete electrolytes prn ppx - lovenox - pepcid - scd - physical therapy evaluation dispo: pt requires inpatient admission Problem List - Problems (1) Hypertension Code(s): I10 - ESSENTIAL (PRIMARY) HYPERTENSION (2) New onset a-fib Code(s): I48.91 - UNSPECIFIED ATRIAL FIBRILLATION (3) Pneumonia Code(s): J18.9 - PNEUMONIA, UNSPECIFIED ORGANISM Qualifiers: Pneumonia type: due to unspecified organism Laterality: bilateral Lung location: lower lobe of lung Qualified Code(s): J18.9 - Pneumonia, unspecified organism (4) Microcytic anemia Code(s): D50.9 - IRON DEFICIENCY ANEMIA, UNSPECIFIED (5) Congestive heart failure (CHF) Code(s): I50.9 - HEART FAILURE, UNSPECIFIED Qualifiers: Heart failure type: unspecified Heart failure chronicity: acute Qualified Code(s): I50.9 - Heart failure, unspecified Visit type - Emergency Visit Emergency Visit: Yes ED Registration Date: 05/20/17 Care time: The patient presented to the Emergency Department on the above date and was hospitalized for further evaluation of their emergent condition. - New Patient This patient is new to me today: No - Critical Care Critical Care patient: No - Discharge Referral Referred to [facility] No
[2017-05-21 08:32] LABS: ANION GAP 8 (8-16); CALCIUM 9.2 mg/dl (8.4-10.2); CHLORIDE 107 mmol/L (98-107); CO2 25 mmol/L (22-28); GLUCOSE,RANDOM 183 mg/dl (74-106); POTASSIUM 4.7 mmol/L (3.5-5.1); SODIUM 140 mmol/L (136-145)
[2017-05-21 08:44] LABS: ALBUMIN 2.9 g/dl (3.5-5.0); ALK PHOS 117 U/L (32-92); BILIRUBIN,TOTAL 0.6 mg/dl (0.2-1.0); BLOOD UREA NITROGEN 35 mg/dl (7-18); CREATININE 1.5 mg/dl (0.6-1.3); PHOSPHOROUS 4.5 mg/dl (2.5-4.6); SGOT/AST 18 U/L (10-42); SGPT/ALT 19 U/L (10-40); TOT PROT 5.4 g/dl (6.4-8.3)
[2017-05-21 09:23] LABS: BASO % 0.1 % (0-2.0); EOS % 0.1 % (0-4.5); LYMPH % 10.6 % (8-40); MCH 18.7 pg (25.7-33.7); MCHC 29.6 g/dl (32.0-36.0); MEAN PLT VOLUME 8.6 fl (7.5-11.1); MONO % 6.4 % (3.8-10.2); NEUT % 82.8 % (42.8-82.8); RBC 3.81 M/mm3 (3.60-5.2); RDW 19.2 % (11.6-15.6); WHITE BLOOD COUNT 4.3 K/mm3 (4.0-10.8)
[2017-05-21 09:25] LABS: ADD RBC MORPHOLOGY YES; HEMOGLOBIN 7.1 GM/dl (10.7-15.3)
[2017-05-21] MEDS ORDERED: FUROSEMIDE 40 MG/4 ML INJECTABLE VIAL IVPUSH ONE (09:28)
[2017-05-21 09:50] LABS: PLATELET COUNT 308 K/MM3 (134-434)
[2017-05-21] MEDS ORDERED: ENOXAPARIN NA (PORCINE) 100 MG/1 ML DISP.SYRIN SQ SCH (10:00)
[2017-05-21] MEDS ORDERED: MAGNESIUM SULF 50% (8.12 MEQ/2 ML-1 GM VIAL) IVPB ONE (11:42)
[2017-05-21] MEDS ORDERED: MAGNESIUM 1GM/D5W - 1 GM/100 ML IVPB IVPB ONE (12:00)
[2017-05-21 12:23] LABS: ANISOCYTOSIS 1+; OVALOCYTE 1+; PLATELET ESTIMATE ADEQUATE
[2017-05-21] MEDS ORDERED: METOPROLOL TARTRATE 5 MG/5 ML VIAL IVPUSH ONE (12:51)
[2017-05-21] MEDS: methylPREDNISolone NA SUCC 40 MG/1 ML VIAL IVPUSH SCH ×2 (14:00→21:28)
[2017-05-21] MEDS: FAMOTIDINE 20 MG TABLET PO SCH ×2 (14:00→21:28)
[2017-05-21 14:13] LABS: SERUM IRON SATURATION 3 % (15-55); TOTAL IRON BINDING CAPACITY 450 ug/dL (250-450); UIBC 437 ug/dL (118-369)
--- NOTE | 2017-05-21 15:28 | PN ---
Progress Note (short form) - Note Progress Note: PULMONARY CONSULTATION DICATATED 05/21/17 IMP ACUTE HYPOXEMIC/HYPERCAPNEIC RESPIRATORY FAILURE CHF ? PNEUMONIA BILATERAL PLEURAL EFFUSIONS RAPID AFIB DIASTOLIC HF ANEMIA NATHALIE PLAN LASIX ABX AC CHEST CT BIPAP O2 NORMAL TRANSFUSION THRESHOLD MONITOR LYTES,RENAL FUNCTION MONITOR H+H CHECK ABG DR MAR Problem List - Problems (1) Acute respiratory failure with hypoxia and hypercapnia Code(s): J96.01 - ACUTE RESPIRATORY FAILURE WITH HYPOXIA; J96.02 - ACUTE RESPIRATORY FAILURE WITH HYPERCAPNIA (2) Congestive heart failure (CHF) Code(s): I50.9 - HEART FAILURE, UNSPECIFIED Qualifiers: Heart failure type: unspecified Heart failure chronicity: acute Qualified Code(s): I50.9 - Heart failure, unspecified (3) Microcytic anemia Code(s): D50.9 - IRON DEFICIENCY ANEMIA, UNSPECIFIED (4) New onset a-fib Code(s): I48.91 - UNSPECIFIED ATRIAL FIBRILLATION (5) Pneumonia Code(s): J18.9 - PNEUMONIA, UNSPECIFIED ORGANISM Qualifiers: Pneumonia type: due to unspecified organism Laterality: bilateral Lung location: lower lobe of lung Qualified Code(s): J18.9 - Pneumonia, unspecified organism (6) Bilateral pleural effusion Code(s): J90 - PLEURAL EFFUSION, NOT ELSEWHERE CLASSIFIED
[2017-05-21] MEDS ORDERED: HEPARIN NA (PORCINE) 5,000 UNITS/ML 1ML VIAL IVPUSH PRN ×2 (15:30)
[2017-05-21] MEDS: FUROSEMIDE 40 MG/4 ML INJECTABLE VIAL IVPUSH SCH (15:30)
--- NOTE | 2017-05-21 15:56 | PN ---
Progress Note, Physician History of Present Illness: BIPAP dependent today -. sats on 2-32 L is only in the 80s No symptoms -> " I am fine" - Current Medication List Current Medications: Active Medications Albuterol/Ipratropium (Duoneb -) 1 amp NEB RQID PRN PRN Reason: SHORT OF BREATH/WHEEZING Last Admin: 05/20/17 21:11 Dose: 1 amp Famotidine (Pepcid -) 20 mg PO BID [facility] Last Admin: 05/21/17 14:00 Dose: 20 mg Furosemide (Lasix Injection -) 40 mg IVPUSH DAILY [facility] Last Admin: 05/21/17 15:30 Dose: 40 mg Heparin Sodium (Porcine) (Heparin -) 1,000 unit IVPUSH PRN PRN PRN Reason: Heparin Heparin Sodium (Porcine) (Heparin -) 5,000 unit IVPUSH PRN PRN PRN Reason: Heparin Levofloxacin (Levaquin 750 Mg Premixed Ivpb -) 750 mg in 150 mls @ 150 mls/hr IVPB Q48H [facility] Heparin Sodium/Dextrose (Heparin Infusion -) 25,000 units in 500 mls @ 20 mls/ hr IVPB TITR TRES; 1,000 UNITS/HR PRN Reason: Protocol Methylprednisolone Sodium Succinate (Solu-Medrol -) 40 mg IVPUSH TID [facility] Last Admin: 05/21/17 14:00 Dose: 40 mg Metoprolol Succinate (Toprol Xl -) 50 mg PO DAILY [facility] Last Admin: 05/21/17 10:33 Dose: 50 mg - Objective Vital Signs: Vital Signs Temperature 97.3 F L 05/21/17 06:42 Pulse Rate 98 H 05/21/17 14:00 Respiratory Rate 23 05/21/17 14:00 Blood Pressure 100/58 05/21/17 14:00 O2 Sat by Pulse Oximetry (%) 93 L 05/21/17 14:00 Constitutional: Yes: No Distress (but on BIPAP) Eyes: Yes: Conjunctiva Clear HENT: Yes: Atraumatic Neck: Yes: Supple Cardiovascular: Yes: Pulse Irregular (an dtachy), Murmur Respiratory: Yes: Other (decr at bases). No: Rales, Rhonchi, Wheezes Gastrointestinal: Yes: Normal Bowel Sounds, Soft Extremities: Yes: Other (warm) Edema: No Peripheral Pulses WNL: Yes Neurological: Yes: Alert, Oriented Labs: CBC, BMP 05/21/17 07:40 05/21/17 07:40 Assessment/Plan 87 yo female with the above history, here with dry cough for a month -. found with evidence of CHF, rapid afib and possible URI/?pna. The CHF may be from diastolic dysfunction in setting of rapid afib. The CHF is mild and I wonder about other causes of bronchospasm (such as infection, underlying lung dz, though no hx) She has a high CHADs/modified CHADS score and should be anticoagulated chronically No evidence of ACS Echo yesterday showed nl EF, but sev TR with nl PASP However, pt not improving today. In fact, BIPAP dependent now H/H lower (10/06) today (in spite of diuresis) -. getting PRBC with IV lasix in between Doubt PE as her PCO2 on admission was high Rec: Toprol XL 50 daily -. follow for worsening bronchospasm Cont lasix 40 mg IV daily -> follow volume status -> may be becoming contracted Switch from lovenox to heparin as she may need thoracentesis (Po eliquis 5 bid once all invasive issues settled) Chest CT per Dr Ware -> possible thoracentesis Transfer to [facility] -> Unfortunately, cardiology has to be called there as we won't be able to follow her there D/w pt D/w daughter on the phone D/W Dr Woodruff D/w Erika Crook
--- NOTE | 2017-05-21 19:21 | HOSP ---
Physical Examination Vital Signs: Vital Signs Temperature 98.6 F 05/21/17 18:38 Pulse Rate 102 H 05/21/17 18:38 Respiratory Rate 22 05/21/17 18:38 Blood Pressure 140/79 05/21/17 18:38 O2 Sat by Pulse Oximetry (%) 92 L 05/21/17 18:38 Labs: CBC, BMP 05/21/17 07:40 05/21/17 07:40
[2017-05-21 21:05] LABS: ADD RBC MORPHOLOGY YES; BASO % 0.1 % (0-2.0); HEMATOCRIT 27.1 % (32.4-45.2); LYMPH % 5.7 % (8-40); MCHC 29.6 g/dl (32.0-36.0); MEAN CELL VOLUME 64.4 fl (80-96); MEAN PLT VOLUME 9.2 fl (7.5-11.1); MONO % 6.4 % (3.8-10.2); NEUT % 87.8 % (42.8-82.8); PLATELET COUNT 275 K/MM3 (134-434); RBC 4.21 M/mm3 (3.60-5.2); RDW 23.7 % (11.6-15.6); WHITE BLOOD COUNT 6.3 K/mm3 (4.0-10.0)
[2017-05-21] MEDS ORDERED: PT OWN MED DRAWER 7, Y5N ONE (21:20)
[2017-05-21 21:40] LABS: ANISOCYTOSIS 3+; MACROCYTOSIS 1+; OVALOCYTE 1+; TARGET CELLS 1+
[2017-05-21 21:41] LABS: PLATELET ESTIMATE ADEQUATE
[2017-05-22] MEDS: HEPARIN INFUSION - 25,000 UNITS/500 ML INFUS.BAG IVPB SCH ×2 (00:57→17:29)
[2017-05-22] MEDS: methylPREDNISolone NA SUCC 40 MG/1 ML VIAL IVPUSH SCH ×3 (05:46→21:22)
[2017-05-22 07:39] LABS: ADD RBC MORPHOLOGY YES; HEMATOCRIT 29.7 % (32.4-45.2); HEMOGLOBIN 9.2 GM/dL (10.7-15.3); LYMPH % 7.4 % (8-40); MCH 20.4 pg (25.7-33.7); MCHC 30.9 g/dl (32.0-36.0); MEAN PLT VOLUME 8.8 fl (7.5-11.1); MONO % 4.8 % (3.8-10.2); NEUT % 87.8 % (42.8-82.8); PLATELET COUNT 250 K/MM3 (134-434); WHITE BLOOD COUNT 7.7 K/mm3 (4.0-10.0)
[2017-05-22 07:40] LABS: ANISOCYTOSIS 3+
--- NOTE | 2017-05-22 08:23 | CONS ---
DATE OF CONSULTATION: 05/21/2017 PULMONARY CONSULTATION REFERRING PHYSICIAN: June Crook M.D. HISTORY OF PRESENT ILLNESS: The patient is an 87-year-old white female with a past medical history of anemia (noncompliant with iron). She is a nonsmoker. She was admitted to [facility], [facility], today with the complaint of a 1-month history of cough associated with wheezing. The patient was brought to the [facility] ER by her son on May 20. At the time she had complaint of a cough which was nonproductive, approximately 1 month, with associated wheezing. Apparently she had an upper respiratory infection prior to this and had a persistent cough since that time. She denied any complaints of nausea, vomiting, diaphoresis. She denied any fever or chills. She denied any complaints of significant shortness of breath. The patient presented to the emergency room with the above. In the ER, she was noted to be tachypneic. She was also noted to be in rapid atrial fibrillation, which is of new onset. She had a chest x-ray performed, which revealed cardiomegaly, possible right lower lobe consolidation and effusion, as well as possible atelectasis at the left base and possible effusion. She was started on IV Lasix as well as antibiotic therapy and steroids. Her hospitalization was significant for today she started developing increasing respiratory distress and hypoxemia, for which she was placed on BiPAP. She had a venous blood gas performed, which revealed pH 7.32 and pCO2 of 56, on unknown quantity of oxygen. The patient is a nonsmoker. She denies any history of COPD or asthma in the past. There is no history of DVT or PE in the past. There is no history of recent travel. PAST MEDICAL HISTORY: Hypertension, anemia, anxiety and depression. PAST SURGICAL HISTORY: Tonsillectomy and hysterectomy. SOCIAL HISTORY: Nonsmoker. 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 No occupational exposures. REVIEW OF SYSTEMS: Positive dyspnea, positive cough, positive wheezing. No chest pain, no palpitations, no fever, no chills, no hemoptysis, no abdominal pain, no lower extremity edema. PHYSICAL EXAMINATION: General: The patient is an elderly white female, well-developed, awake, alert, on BiPAP, mildly dyspneic but in no acute respiratory distress. Vital Signs: She is currently afebrile. Blood pressure is 100/58. Respiratory rate is 23. O2 saturation is 93% on BiPAP. HEENT: Normocephalic, atraumatic. Neck: Supple. Heart: Irregular. Normal S1 and S2. Chest: A few bibasilar crackles. Abdomen: Soft. Bowel sounds are positive. Extremities: No cyanosis or edema. DIAGNOSTIC STUDIES: WBC 4.3, hemoglobin 7.1, hematocrit 24. Of note, on admission the hemoglobin was 7.7 and hematocrit 27.5. PTT 25. BUN 35, creatinine 1.5. Of note is on admission the creatinine was 1.5 and the BUN was 25. Chest x-ray reveals bilateral pleural effusions, compressive atelectasis, and cardiomegaly. BNP is elevated at 3417. IMPRESSION: Acute hypoxemic, hypercapnic respiratory failure secondary to multiple factors: 1. Likely decompensated congestive heart failure. 2. Rule out possible pneumonia. 3. Diastolic dysfunction with rapid atrial fibrillation. 4. History of hypertension. 5. Anemia. PLAN: Continue BiPAP. Check arterial blood gas and CT scan of the chest. Continue Lasix, antibiotic therapy, steroids, inhaled bronchodilators. I will perform diagnostic thoracentesis if the patient is noted to have significant pleural fluid on CT scan. Rate control as per Cardiology. Continue with anticoagulation; will start IV heparin and then transition to p.o. once further workup completed. Monitor hemoglobin and hematocrit. Normal transfusion thresholds. BABAK MAR M.D. [place]/[id number]
[2017-05-22 08:40] LABS: ALBUMIN 2.8 g/dl (3.4-5.0); ALK PHOS 148 U/L (45-117); ANION GAP 11 (8-16); BILIRUBIN,TOTAL 0.5 mg/dL (0.2-1.0); BLOOD UREA NITROGEN 50 mg/dL (7-18); CHLORIDE 106 mmol/L (98-107); CO2 27 mmol/L (21-32); CREATININE 1.7 mg/dL (0.55-1.02); GLUCOSE,RANDOM 162 mg/dL (74-106); MAGNESIUM 2.3 mg/dL (1.8-2.4); PHOSPHOROUS 4.7 mg/dL (2.5-4.9); POTASSIUM 4.2 mmol/L (3.5-5.1); SGOT/AST 20 U/L (15-37); SGPT/ALT 24 U/L (12-78); SODIUM 144 mmol/L (136-145); TOT PROT 5.6 g/dl (6.4-8.2)
[2017-05-22] MEDS: FAMOTIDINE 20 MG TABLET PO SCH ×2 (09:10→22:11)
[2017-05-22] MEDS: FUROSEMIDE 40 MG/4 ML INJECTABLE VIAL IVPUSH SCH (09:52)
--- NOTE | 2017-05-22 11:44 | CONSULT ---
Consultation: REQUESTING PROVIDER: Rosalina Palomares CONSULT REQUEST: We have been asked to medically evaluate this patient for NATHALIE. HISTORY OF PRESENT ILLNESS: Patient is an 87 year old female with a PMHx of HTN who presented for increasing cough for the past month. Patient reports in the last month she's had a dry cough but does not recall having fevers and chills. According to the [facility] patient had fevers and within 24 hours she developed shortness of breath, especially upon exertion. In the ED patient was found to have Rapid A.fib with CHF exacerbation. Throughout the course her Creatinine has been increasing and were consulted for further investigation. Patient otherwise denies fever, chills, nausea, vomiting, abdominal pain, chest pain, palpitations , headaches, dysuria, hematuria, incontinence. Patient reports taking Two pills of Aleve every 3 days for chronic back pain Patient reports not drinking enough fluids and some days she would only have a couple of sips Patient denies being told she had kidney issues in the past PMHx: HTN PSHx: Appendectomy, Hysterectomy, ureteral placements Social: Denies alcohol, smoking, drugs. 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 Family: Non-contributory Allergies: Cephalexin Home Medication List Medication Instructions Recorded Confirmed Type Amlodipine Besylate [Norvasc -] 5 mg PO DAILY 09/01/12 05/20/17 History REVIEW OF SYSTEMS: CONSTITUTIONAL: Absent: fever, chills, diaphoresis, generalized weakness, malaise, loss of appetite, weight change HEENT: Absent: rhinorrhea, nasal congestion, throat pain, throat swelling, difficulty swallowing, mouth swelling, ear pain, eye pain, visual changes CARDIOVASCULAR: Absent: chest pain, syncope, palpitations, irregular heart rate, lightheadedness , peripheral edema RESPIRATORY: cough, shortness of breath, dyspnea with exertion Absent: orthopnea, wheezing, stridor, hemoptysis GASTROINTESTINAL: Absent: abdominal pain, abdominal distension, nausea, vomiting, diarrhea, constipation, melena, hematochezia GENITOURINARY: Absent: dysuria, frequency, urgency, hesitancy, hematuria, flank pain, genital pain MUSCULOSKELETAL: Absent: myalgia, arthralgia, joint swelling, back pain, neck pain SKIN: Absent: rash, itching, pallor HEMATOLOGIC/IMMUNOLOGIC: Absent: easy bleeding, easy bruising, lymphadenopathy, frequent infections ENDOCRINE: Absent: unexplained weight gain, unexplained weight loss, heat intolerance, cold intolerance NEUROLOGIC: Absent: headache, focal weakness or paresthesias, dizziness, unsteady gait, seizure, mental status changes, bladder or bowel incontinence PSYCHIATRIC: Absent: anxiety, depression, suicidal or homicidal ideation, hallucinations. PHYSICAL EXAMINATION Vital Signs - 24 hr 05/21/17 05/21/17 05/21/17 13:00 14:00 18:38 Temperature 98.6 F Pulse Rate 126 H 98 H 102 H Respiratory 23 22 Rate Blood Pressure 106/62 100/58 140/79 O2 Sat by Pulse 93 L 92 L Oximetry (%) 05/21/17 05/21/17 05/21/17 20:39 21:00 22:00 Temperature 97.7 F Pulse Rate 125 H Respiratory 20 Rate Blood Pressure 123/76 O2 Sat by Pulse 95 93 L Oximetry (%) 05/22/17 05/22/17 05/22/17 02:00 02:55 06:00 Temperature 97.8 F 97.6 F Pulse Rate 105 H 70 92 H Respiratory 20 20 Rate Blood Pressure 121/71 118/57 O2 Sat by Pulse 95 Oximetry (%) GENERAL: Awake, alert, and fully oriented, in no acute distress. HEAD: Normal with no signs of trauma. EYES: Pupils equal, round and reactive to light, extraocular movements intact, sclera anicteric, conjunctiva clear. No lid lag. EARS, NOSE, THROAT: Oropharynx clear without exudates. Moist mucous membranes. NECK: Normal range of motion, supple without lymphadenopathy, JVD, or masses. LUNGS: On NC. Bibasilar rales. No use of accessory muscles HEART: Regular rate with irregularly irregular rhythm normal S1 and S2 ABDOMEN: Soft, nontender, not distended, normoactive bowel sounds MUSCULOSKELETAL: No CVA tenderness. EXTREMITIES: No calf tenderness. No peripheral edema. NEUROLOGICAL: No facial droop with normal speech SKIN: Warm, dry, normal turgor CBC, BMP 05/22/17 06:30 05/22/17 06:30 Laboratory Tests 05/20/17 05/20/17 05/22/17 07:40 09:25 06:30 Total Protein 5.6 L Albumin 2.8 L Urine Appearance Clear Urine Protein Negative Ur Leukocyte Esterase Trace H Urine RBC 0-1 Urine WBC 2-4 Ur Epithelial Cells Few Urine Bacteria None seen Stool Occult Blood Negative Laboratory Results - last 24 hr Active Medications Generic Name Dose Route Start Last Admin Trade Name Freq PRN Reason Stop Dose Admin Albuterol/Ipratropium 1 amp 05/20/17 07:49 05/20/17 21:11 Duoneb - NEB 1 amp RQID PRN Administration SHORT OF BREATH/WHEEZING Famotidine 20 mg 05/21/17 12:00 05/21/17 21:28 Pepcid - PO Not Given BID TRES Furosemide 40 mg 05/21/17 10:00 05/22/17 09:52 Lasix Injection - IVPUSH 40 mg DAILY TRES Administration Heparin Sodium (Porcine) 1,000 unit 05/21/17 15:30 Heparin - IVPUSH PRN PRN Heparin Heparin Sodium (Porcine) 5,000 unit 05/21/17 15:30 05/22/17 00:57 Heparin - IVPUSH 5,000 unit PRN PRN Administration Heparin Levofloxacin 750 mg in 150 mls @ 150 mls/hr 05/22/17 10:00 05/22/17 09:52 Levaquin 750 Mg Premixed Ivpb - IVPB 150 mls/hr Q48H TRES Administration Heparin Sodium/Dextrose 25,000 units in 500 mls @ 20 mls/hr 05/21/17 15:30 09:53 Heparin Infusion - IVPB 850 units/hr TITR TRES 17 mls/hr Protocol Titration 1,000 UNITS/HR Methylprednisolone Sodium Succinate 40 mg 05/20/17 07:45 05/22/17 05:46 Solu-Medrol - IVPUSH 40 mg TID TRES Administration Metoprolol Succinate 50 mg 05/21/17 10:00 05/22/17 09:52 Toprol Xl - PO 50 mg DAILY TRES Administration ASSESSMENT/PLAN: Patient is an 87 year old female who presented for a dry cough associated with fevers and shortness of breath and was found to have new onset of A.fib with CHF. Patient was also found to have worsening renal function throughout hospital course. NATHALIE -Likely secondary to fluid overload from CHF exacerbation. However we cannot rule out obstructive uropathy due to history of hydronephrosis with Ureteral stents placement vs AIN from recent Bactrim use and NSAID use vs. volume depletion in the setting of diuresis. -Urine electrolytes, urine urea nitrogen ordered to caluculate FeNa -Total Urine protein ordered -Urine eosinophils ordered to rule out AIN -Kidney/Bladder US ordered to rule out any obstruction -Continue diuresis as patient has pleural effusions with cxr done today -No indication for emergent dialysis -Would avoid all NSAID use -Avoid other nephrotoxic medications -Renally dose medications for creatinine clearance <30 -Continue to monitor BMP Acute Diastolic CHF -New onset likely secondary to Rapid A.fib -Would continue Diuretics with strict I&O's New Onset of A.Fib with RVR -Continue Heparin drip, as per cardiology Dry Cough with Pleural effusions -Consider thoracentesis, as per Pulmonology -Bipap as needed HTN -Continue Metoprolol 50mg BID -Continue to monitor BP and avoid hypotension as it can worsen kidney function Dispo: We will continue to follow the patient. Thank you for this consultative opportunity. Jessica Sampson [id number] Visit type - Emergency Visit Emergency Visit: Yes ED Registration Date: 05/20/17 Care time: The patient presented to the Emergency Department on the above date and was hospitalized for further evaluation of their emergent condition. - New Patient This patient is new to me today: Yes Date on this admission: 05/20/17 - Critical Care Critical Care patient: No
--- NOTE | 2017-05-22 12:15 | PN ---
Progress Note (short form) - Note Progress Note: History of Present Illness: no cp sob palps dizzy - Current Medication List Current Medications Generic Name Dose Route Start Last Admin Trade Name Freq PRN Reason Stop Dose Admin Albuterol/Ipratropium 1 amp 05/20/17 07:49 05/20/17 21:11 Duoneb - NEB 1 amp RQID PRN Administration SHORT OF BREATH/WHEEZING Famotidine 20 mg 05/21/17 12:00 05/21/17 21:28 Pepcid - PO Not Given BID TRES Furosemide 40 mg 05/21/17 10:00 05/22/17 09:52 Lasix Injection - IVPUSH 40 mg DAILY TRES Administration Heparin Sodium (Porcine) 1,000 unit 05/21/17 15:30 Heparin - IVPUSH PRN PRN Heparin Heparin Sodium (Porcine) 5,000 unit 05/21/17 15:30 05/22/17 00:57 Heparin - IVPUSH 5,000 unit PRN PRN Administration Heparin Levofloxacin 750 mg in 150 mls @ 150 mls/hr 05/22/17 10:00 05/22/17 09:52 Levaquin 750 Mg Premixed Ivpb - IVPB 150 mls/hr Q48H TRES Administration Heparin Sodium/Dextrose 25,000 units in 500 mls @ 20 mls/hr 05/21/17 15:30 09:53 Heparin Infusion - IVPB 850 units/hr TITR TRES 17 mls/hr Protocol Titration 1,000 UNITS/HR Methylprednisolone Sodium Succinate 40 mg 05/20/17 07:45 05/22/17 05:46 Solu-Medrol - IVPUSH 40 mg TID TRES Administration Metoprolol Succinate 50 mg 05/22/17 22:00 Toprol Xl - PO BID TRES - Objective Vital Signs: Vital Signs Period Temp Pulse Resp BP Sys/Marino Pulse Ox Last 24 Hr 97.6 F-98.6 F 70-126 20-23 100-140/57-79 92-95 Constitutional: Yes: No Distress (but on BIPAP) Eyes: Yes: Conjunctiva Clear HENT: Yes: Atraumatic Neck: Yes: Supple Cardiovascular: Yes: Pulse Irregular (and tachy), Murmur Respiratory: Yes: Other (decr at bases). No: Rales, Rhonchi, Wheezes Gastrointestinal: Yes: Normal Bowel Sounds, Soft Extremities: Yes: Other (warm) Edema: No Peripheral Pulses WNL: Yes Neurological: Yes: Alert, Oriented Labs: CBC, BMP 05/22/17 06:30 05/22/17 06:30 echo 05/2017: nl lv, mild rve, nl rv fcn, mil-mod mr, sev tr, mild-mod ar, mild pr, nl rvsp cxr: bl effs tele: afib rvr Assessment/Plan 87 yo female here with dry cough for a month found with evidence of CHF, rapid afib and possible URI/?pna. acute diastolic chf: -The CHF may be from diastolic dysfunction in setting of rapid afib. -cont iv lasix for now pna: -on abx and steroids afib: -with rvr, will increase toprol from 50 qd to bid, monitor tele -She has a high CHADs/modified CHADS score and should be anticoagulated chronically, cont hep gtt for now, monitor for worsening anemia. angela: -monitor with lasix
--- NOTE | 2017-05-22 13:03 | PN ---
Progress Note (short form) - Note Progress Note: Subjective: The patient was seen and examined at the bedside, she reports her breathing is at her baseline and that she feels good. She has no complaints at this time. Current Medications Generic Name Dose Route Start Last Admin Trade Name Freq PRN Reason Stop Dose Admin Albuterol/Ipratropium 1 amp 05/20/17 07:49 05/20/17 21:11 Duoneb - NEB 1 amp RQID PRN Administration SHORT OF BREATH/WHEEZING Famotidine 20 mg 05/21/17 12:00 05/21/17 21:28 Pepcid - PO Not Given BID TRES Furosemide 40 mg 05/21/17 10:00 05/22/17 09:52 Lasix Injection - IVPUSH 40 mg DAILY TRES Administration Heparin Sodium (Porcine) 1,000 unit 05/21/17 15:30 Heparin - IVPUSH PRN PRN Heparin Heparin Sodium (Porcine) 5,000 unit 05/21/17 15:30 05/22/17 00:57 Heparin - IVPUSH 5,000 unit PRN PRN Administration Heparin Levofloxacin 750 mg in 150 mls @ 150 mls/hr 05/22/17 10:00 05/22/17 09:52 Levaquin 750 Mg Premixed Ivpb - IVPB 150 mls/hr Q48H TRES Administration Heparin Sodium/Dextrose 25,000 units in 500 mls @ 20 mls/hr 05/21/17 15:30 09:53 Heparin Infusion - IVPB 850 units/hr TITR TRES 17 mls/hr Protocol Titration 1,000 UNITS/HR Methylprednisolone Sodium Succinate 40 mg 05/20/17 07:45 05/22/17 05:46 Solu-Medrol - IVPUSH 40 mg TID TRES Administration Metoprolol Succinate 50 mg 05/22/17 22:00 Toprol Xl - PO BID TRES Objective: Vital Signs Period Temp Pulse Resp BP Sys/Marino Pulse Ox Last 24 Hr 97.6 F-98.6 F 70-126 20-23 100-140/57-88 92-95 Physical Exam: General: NAD, A&Ox3 Lungs: Decreased breath sounds bilaterally Heart: Irregular rate, S1S2 Abd: Soft, non-tender, non-distended. Normoactive bowel sounds Ext: Warm, well-perfused. 2+ DP/PT bilaterally Neuro: CN 2-12 intact CBCD WBC 7.7 K/mm3 (4.0-10.0) 05/22/17 06:30 RBC 4.50 M/mm3 (3.60-5.2) 05/22/17 06:30 Hgb 9.2 GM/dL (10.7-15.3) L D 05/22/17 06:30 Hct 29.7 % (32.4-45.2) L 05/22/17 06:30 MCV 66.0 fl (80-96) L 05/22/17 06:30 MCHC 30.9 g/dl (32.0-36.0) L 05/22/17 06:30 RDW 25.0 % (11.6-15.6) H 05/22/17 06:30 Plt Count 250 K/MM3 (134-434) 05/22/17 06:30 MPV 8.8 fl (7.5-11.1) 05/22/17 06:30 CMP Sodium 144 mmol/L (136-145) 05/22/17 06:30 Potassium 4.2 mmol/L (3.5-5.1) 05/22/17 06:30 Chloride 106 mmol/L (98-107) 05/22/17 06:30 Carbon Dioxide 27 mmol/L (21-32) 05/22/17 06:30 Anion Gap 11 (8-16) 05/22/17 06:30 BUN 50 mg/dL (7-18) H D 05/22/17 06:30 Creatinine 1.7 mg/dL (0.55-1.02) H 05/22/17 06:30 Creat Clearance w eGFR 28.56 (>60) 05/22/17 06:30 Random Glucose 162 mg/dL (74-106) H 05/22/17 06:30 Calcium 9.0 mg/dL (8.5-10.1) 05/22/17 06:30 Total Bilirubin 0.5 mg/dL (0.2-1.0) D 05/22/17 06:30 AST 20 U/L (15-37) 05/22/17 06:30 ALT 24 U/L (12-78) 05/22/17 06:30 Alkaline Phosphatase 148 U/L (45-117) H 05/22/17 06:30 Total Protein 5.6 g/dl (6.4-8.2) L 05/22/17 06:30 Albumin 2.8 g/dl (3.4-5.0) L 05/22/17 06:30 CARDIAC ENZYMES Creatine Kinase 14 IU/L (26-192) L 05/21/17 07:40 Troponin I < 0.03 ng/ml (0.00-0.06) 05/21/17 07:40 Microbiology 05/20/17 04:57 Blood - Peripheral Venous Blood Culture - Preliminary NO GROWTH OBTAINED AFTER 48 HOURS, INCUBATION TO CONTINUE FOR 3 DAYS. 05/20/17 04:57 Blood - Peripheral Venous Blood Culture - Preliminary NO GROWTH OBTAINED AFTER 48 HOURS, INCUBATION TO CONTINUE FOR 3 DAYS. 05/20/17 06:45 Urine For Antigen Detection Legionella Antigen - Final 05/20/17 06:45 Urine For Antigen Detection Streptococcus pneumoniae Antigen (M - Final 05/20/17 09:25 Urine - Urine Clean Catch Urine Culture - Final Assessment: This is an 87 year old female with PMHx of HTN, renal calculi, iron deficiency anemia, who presented to the ED with one month or shortness of breath and non-productive cough Plan: 1) New onset a.fib with RVR - On Heparin gtt - Increased Toprol xl to 50mg po bid - ECHO reviewed - Appreciate cardiology consult 2) Acute diastolic CHF - Likely 2/2 to diastolic dysfunction in setting of rapid a.fib - Continue Lasix 40mg IV - Strict I&O - Daily weights 3) Non-productive cough - D/c Levaquin. Discussed with Dr. Ware. Patient afebrile, WBC wnl. CT chest with no evidence of pneumonia - Appreciate pulmonary consult 4) B/l pleural effusions - CT chest with mild to moderate bilateral pleural effusions with atelectatic changes of the lower lobes. 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 - New Patient This patient is new to me today: Yes Date on this admission: 05/22/17 - Critical Care Critical Care patient: No
--- NOTE | 2017-05-22 13:10 | PN ---
Progress Note, Physician History of Present Illness: pulmonary alert,feeling better,less dyspneic - Current Medication List Current Medications: Active Medications Albuterol/Ipratropium (Duoneb -) 1 amp NEB RQID PRN PRN Reason: SHORT OF BREATH/WHEEZING Last Admin: 05/20/17 21:11 Dose: 1 amp Famotidine (Pepcid -) 20 mg PO BID [facility] Last Admin: 05/21/17 21:28 Dose: Not Given Furosemide (Lasix Injection -) 40 mg IVPUSH DAILY [facility] Last Admin: 05/22/17 09:52 Dose: 40 mg Heparin Sodium (Porcine) (Heparin -) 1,000 unit IVPUSH PRN PRN PRN Reason: Heparin Heparin Sodium (Porcine) (Heparin -) 5,000 unit IVPUSH PRN PRN PRN Reason: Heparin Last Admin: 05/22/17 00:57 Dose: 5,000 unit Levofloxacin (Levaquin 750 Mg Premixed Ivpb -) 750 mg in 150 mls @ 150 mls/hr IVPB Q48H [facility] Last Admin: 05/22/17 09:52 Dose: 150 mls/hr Heparin Sodium/Dextrose (Heparin Infusion -) 25,000 units in 500 mls @ 20 mls/ hr IVPB TITR TRES; 1,000 UNITS/HR PRN Reason: Protocol Last Titration: 05/22/17 09:53 Dose: 850 units/hr, 17 mls/hr Methylprednisolone Sodium Succinate (Solu-Medrol -) 40 mg IVPUSH TID [facility] Last Admin: 05/22/17 05:46 Dose: 40 mg Metoprolol Succinate (Toprol Xl -) 50 mg PO BID [facility] - Objective Vital Signs: Vital Signs Temperature 98.1 F 05/22/17 10:00 Pulse Rate 108 H 05/22/17 10:00 Respiratory Rate 20 05/22/17 10:00 Blood Pressure 131/88 05/22/17 10:00 O2 Sat by Pulse Oximetry (%) 93 L 05/22/17 10:00 Constitutional: Yes: Well Nourished, Calm Eyes: Yes: WNL HENT: Yes: WNL Neck: Yes: WNL Cardiovascular: Yes: Pulse Irregular, S1, S2 Respiratory: Yes: Rales (ceci crackles 1/3 up) Gastrointestinal: Yes: Normal Bowel Sounds, Soft Extremities: Yes: WNL Edema: No Labs: CBC, BMP 05/22/17 06:30 05/22/17 06:30 Problem List - Problems (1) Acute respiratory failure with hypoxia and hypercapnia Code(s): J96.01 - ACUTE RESPIRATORY FAILURE WITH HYPOXIA; J96.02 - ACUTE RESPIRATORY FAILURE WITH HYPERCAPNIA (2) Congestive heart failure (CHF) Code(s): I50.9 - HEART FAILURE, UNSPECIFIED Qualifiers: Heart failure type: unspecified Heart failure chronicity: acute Qualified Code(s): I50.9 - Heart failure, unspecified (3) Microcytic anemia Code(s): D50.9 - IRON DEFICIENCY ANEMIA, UNSPECIFIED (4) New onset a-fib Code(s): I48.91 - UNSPECIFIED ATRIAL FIBRILLATION (5) Pneumonia Code(s): J18.9 - PNEUMONIA, UNSPECIFIED ORGANISM Qualifiers: Pneumonia type: due to unspecified organism Laterality: bilateral Lung location: lower lobe of lung Qualified Code(s): J18.9 - Pneumonia, unspecified organism (6) Bilateral pleural effusion Code(s): J90 - PLEURAL EFFUSION, NOT ELSEWHERE CLASSIFIED Assessment/Plan IMP ACUTE HYPOXEMIC/HYPERCAPNEIC RESPIRATORY FAILURE CHF ? PNEUMONIA BILATERAL PLEURAL EFFUSIONS RAPID AFIB DIASTOLIC HF ANEMIA NATHALIE PLAN LASIX DC ABX AC BIPAP O2 NORMAL TRANSFUSION THRESHOLD MONITOR LYTES,RENAL FUNCTION MONITOR H+H F/U CHEST X-RAYS DR MAR Problem List - Problems (1) Acute respiratory failure with hypoxia and hypercapnia Code(s): J96.01 - ACUTE RESPIRATORY FAILURE WITH HYPOXIA; J96.02 - ACUTE RESPIRATORY FAILURE WITH HYPERCAPNIA (2) Congestive heart failure (CHF) Code(s): I50.9 - HEART FAILURE, UNSPECIFIED Qualifiers: Heart failure type: unspecified Heart failure chronicity: acute Qualified Code(s): I50.9 - Heart failure, unspecified (3) Microcytic anemia Code(s): D50.9 - IRON DEFICIENCY ANEMIA, UNSPECIFIED (4) New onset a-fib Code(s): I48.91 - UNSPECIFIED ATRIAL FIBRILLATION (5) Pneumonia Code(s): J18.9 - PNEUMONIA, UNSPECIFIED ORGANISM Qualifiers: Pneumonia type: due to unspecified organism Laterality: bilateral Lung location: lower lobe of lung Qualified Code(s): J18.9 - Pneumonia, unspecified organism (6) Bilateral pleural effusion Code(s): J90 - PLEURAL EFFUSION, NOT ELSEWHERE CLASSIFIED
[2017-05-22 15:26] LABS: URINE APPEARANCE CLEAR; URINE BILIRUBIN NEGATIVE (NEGATIVE); URINE BLOOD 1+ (NEGATIVE); URINE COLOR COLORLESS; URINE GLUCOSE (UA) NEGATIVE (NEGATIVE); URINE KETONE NEGATIVE (NEGATIVE); URINE LEUK ESTERASE NEGATIVE (NEGATIVE); URINE NITRITE NEGATIVE (NEGATIVE); URINE PROTEIN NEGATIVE (NEGATIVE); URINE UROBILINOGEN NEGATIVE mg/dL (0.2-1.0)
[2017-05-22 15:35] LABS: URINE HYALINE CAST 7 /lpf; URINE MUCUS RARE
--- NOTE | 2017-05-22 16:20 | PN ---
Teaching Attending Note Name of Resident: Jessica Sampson (nephrology) ATTENDING PHYSICIAN STATEMENT I saw and evaluated the patient. I reviewed the resident's note and discussed the case with the resident. I agree with the resident's findings and plan as documented. SUBJECTIVE: This is a 87 year old woman with PMhx of Hypertension, Urethral stenting (? unknown if pt had stones) who presented with complaints of cough and admitted for HF and found to have worsening renal function as inpatient. Pt has been treated with IV lasix and Abx as inpatient. Reports making urine. No CP, Abd pain, N/V/D. +NSAID use at home. No contrast exposure. No rash on skin. PMhx: as above Allergies: NKDA Family Hx: NC Social hx: No T/A/D Home Medications Medication Instructions Recorded Amlodipine Besylate [Norvasc -] 5 mg PO DAILY 09/01/12 OBJECTIVE: Vital Signs Temperature 97.8 F 05/22/17 14:14 Pulse Rate 108 H 05/22/17 14:14 Respiratory Rate 16 05/22/17 14:14 Blood Pressure 122/84 05/22/17 14:14 O2 Sat by Pulse Oximetry (%) 93 L 05/22/17 10:00 Intake & Output 05/19/17 05/20/17 05/21/17 05/22/17 23:59 23:59 23:59 23:59 Intake Total 120 1180 550 Output Total 250 2100 1450 Balance -130 -920 -900 Weight 72.575 kg 89.267 kg 85.275 kg NAD awake and alert Dec BS at lung bases RRR soft NT/ND No LE edema Current Medications Albuterol/Ipratropium (Duoneb -) 1 amp NEB RQID PRN PRN Reason: SHORT OF BREATH/WHEEZING Last Admin: 05/20/17 21:11 Dose: 1 amp Famotidine (Pepcid -) 20 mg PO BID [facility] Last Admin: 05/21/17 21:28 Dose: Not Given Furosemide (Lasix Injection -) 40 mg IVPUSH DAILY [facility] Last Admin: 05/22/17 09:52 Dose: 40 mg Heparin Sodium (Porcine) (Heparin -) 1,000 unit IVPUSH PRN PRN PRN Reason: Heparin Heparin Sodium (Porcine) (Heparin -) 5,000 unit IVPUSH PRN PRN PRN Reason: Heparin Last Admin: 05/22/17 00:57 Dose: 5,000 unit Heparin Sodium/Dextrose (Heparin Infusion -) 25,000 units in 500 mls @ 20 mls/ hr IVPB TITR TRES; 1,000 UNITS/HR PRN Reason: Protocol Last Titration: 05/22/17 09:53 Dose: 850 units/hr, 17 mls/hr Methylprednisolone Sodium Succinate (Solu-Medrol -) 40 mg IVPUSH TID [facility] Last Admin: 05/22/17 13:50 Dose: 40 mg Metoprolol Succinate (Toprol Xl -) 50 mg PO BID [facility] ASSESSMENT AND PLAN: 87 year old woman with PMhx of Hypertension, Urethral stenting (? unknown if pt had stones) who presented with complaints of cough and admitted for HF and found to have worsening renal function as inpatient. #Acute Renal Failure in setting of Mild fluid overload/pleural effusions differential includes obstructive uropathy vs. AIN vs. intravascular volume depletion in setting of diureiss Check Urine for FeNa, UPCR, Urine Eios check US of the kidney and the bladder Would continue Diuretics for now as pt has effusions in imaging studies done today Trend BUN/Cr and electrolytes no acute indication for [employer] Dose all meds for CrCl less then 30 Thank you Will follow Chano Raman DO
[2017-05-22] MEDS ORDERED: PT OWN MED DRAWER 7, Y5N ONE (21:21)
[2017-05-23] MEDS: methylPREDNISolone NA SUCC 40 MG/1 ML VIAL IVPUSH SCH (05:38)
[2017-05-23 07:58] LABS: ANION GAP 13 (8-16); BASO % 0.1 % (0-2.0); BLOOD UREA NITROGEN 58 mg/dL (7-18); CALCIUM 8.7 mg/dL (8.5-10.1); CHLORIDE 102 mmol/L (98-107); CO2 29 mmol/L (21-32); EOS % 0.1 % (0-4.5); GLUCOSE,RANDOM 161 mg/dL (74-106); HEMATOCRIT 29.1 % (32.4-45.2); LYMPH % 7.2 % (8-40); MAGNESIUM 2.3 mg/dL (1.8-2.4); MCH 20.4 pg (25.7-33.7); MCHC 31.1 g/dl (32.0-36.0); MEAN CELL VOLUME 65.6 fl (80-96); MEAN PLT VOLUME 9.1 fl (7.5-11.1); MONO % 6.4 % (3.8-10.2); NEUT % 86.2 % (42.8-82.8); PLATELET COUNT 223 K/MM3 (134-434); POTASSIUM 3.9 mmol/L (3.5-5.1); RBC 4.44 M/mm3 (3.60-5.2); RDW 25.4 % (11.6-15.6); SODIUM 144 mmol/L (136-145); WHITE BLOOD COUNT 5.6 K/mm3 (4.0-10.0)
[2017-05-23 07:59] LABS: CREATININE 1.4 mg/dL (0.55-1.02); PHOSPHOROUS 4.6 mg/dL (2.5-4.9)
[2017-05-23] MEDS ORDERED: PT OWN MED DRAWER 7, Y5N ONE ×2 (09:31→10:51)
[2017-05-23] MEDS: FUROSEMIDE 40 MG/4 ML INJECTABLE VIAL IVPUSH SCH (09:35)
--- NOTE | 2017-05-23 12:04 | PN ---
Progress Note, Physician History of Present Illness: pulmonary alert,feeling better,less dyspneic - Current Medication List Current Medications: Active Medications Albuterol/Ipratropium (Duoneb -) 1 amp NEB RQID PRN PRN Reason: SHORT OF BREATH/WHEEZING Last Admin: 05/20/17 21:11 Dose: 1 amp Furosemide (Lasix Injection -) 40 mg IVPUSH DAILY [facility] Last Admin: 05/23/17 09:35 Dose: 40 mg Heparin Sodium (Porcine) (Heparin -) 1,000 unit IVPUSH PRN PRN PRN Reason: Heparin Heparin Sodium (Porcine) (Heparin -) 5,000 unit IVPUSH PRN PRN PRN Reason: Heparin Last Admin: 05/22/17 00:57 Dose: 5,000 unit Heparin Sodium/Dextrose (Heparin Infusion -) 25,000 units in 500 mls @ 20 mls/ hr IVPB TITR TRES; 1,000 UNITS/HR PRN Reason: Protocol Last Admin: 05/22/17 17:29 Dose: 850 units/hr, 17 mls/hr Methylprednisolone Sodium Succinate (Solu-Medrol -) 40 mg IVPUSH TID [facility] Last Admin: 05/23/17 05:38 Dose: 40 mg Metoprolol Succinate (Toprol Xl -) 50 mg PO BID [facility] Last Admin: 05/23/17 09:35 Dose: 50 mg Ranitidine HCl (Zantac -) 150 mg PO BID [facility] - Objective Vital Signs: Vital Signs Temperature 97.4 F L 05/23/17 09:00 Pulse Rate 101 H 05/23/17 09:00 Respiratory Rate 20 05/23/17 09:00 Blood Pressure 129/76 05/23/17 09:00 O2 Sat by Pulse Oximetry (%) 90 L 05/22/17 21:00 Constitutional: Yes: Well Nourished, Calm Eyes: Yes: WNL HENT: Yes: WNL Neck: Yes: WNL Cardiovascular: Yes: Pulse Irregular, S1, S2 Respiratory: Yes: Rales (bibasilar rales) Gastrointestinal: Yes: Normal Bowel Sounds, Soft Extremities: Yes: WNL Edema: Yes Labs: CBC, BMP 05/23/17 06:50 05/23/17 06:50 Problem List - Problems (1) Acute respiratory failure with hypoxia and hypercapnia Code(s): J96.01 - ACUTE RESPIRATORY FAILURE WITH HYPOXIA; J96.02 - ACUTE RESPIRATORY FAILURE WITH HYPERCAPNIA (2) Congestive heart failure (CHF) Code(s): I50.9 - HEART FAILURE, UNSPECIFIED Qualifiers: Heart failure type: unspecified Heart failure chronicity: acute Qualified Code(s): I50.9 - Heart failure, unspecified (3) Microcytic anemia Code(s): D50.9 - IRON DEFICIENCY ANEMIA, UNSPECIFIED (4) New onset a-fib Code(s): I48.91 - UNSPECIFIED ATRIAL FIBRILLATION (5) Pneumonia Code(s): J18.9 - PNEUMONIA, UNSPECIFIED ORGANISM Qualifiers: Pneumonia type: due to unspecified organism Laterality: bilateral Lung location: lower lobe of lung Qualified Code(s): J18.9 - Pneumonia, unspecified organism (6) Bilateral pleural effusion Code(s): J90 - PLEURAL EFFUSION, NOT ELSEWHERE CLASSIFIED Assessment/Plan IMP ACUTE HYPOXEMIC/HYPERCAPNEIC RESPIRATORY FAILURE CHF ? PNEUMONIA BILATERAL PLEURAL EFFUSIONS RAPID AFIB DIASTOLIC HF ANEMIA NATHALIE PLAN LASIX DC ABX AC BIPAP O2 NORMAL TRANSFUSION THRESHOLD MONITOR LYTES,RENAL FUNCTION MONITOR H+H F/U CHEST X-RAYS TAPER STEROIDS DR MAR Problem List - Problems (1) Acute respiratory failure with hypoxia and hypercapnia Code(s): J96.01 - ACUTE RESPIRATORY FAILURE WITH HYPOXIA; J96.02 - ACUTE RESPIRATORY FAILURE WITH HYPERCAPNIA (2) Congestive heart failure (CHF) Code(s): I50.9 - HEART FAILURE, UNSPECIFIED Qualifiers: Heart failure type: unspecified Heart failure chronicity: acute Qualified Code(s): I50.9 - Heart failure, unspecified (3) Microcytic anemia Code(s): D50.9 - IRON DEFICIENCY ANEMIA, UNSPECIFIED (4) New onset a-fib Code(s): I48.91 - UNSPECIFIED ATRIAL FIBRILLATION (5) Pneumonia Code(s): J18.9 - PNEUMONIA, UNSPECIFIED ORGANISM Qualifiers: Pneumonia type: due to unspecified organism Laterality: bilateral Lung location: lower lobe of lung Qualified Code(s): J18.9 - Pneumonia, unspecified organism (6) Bilateral pleural effusion Code(s): J90 - PLEURAL EFFUSION, NOT ELSEWHERE CLASSIFIED
--- NOTE | 2017-05-23 12:14 | PN ---
Progress Note (short form) - Note Progress Note: Renal Follow up for NATHALIE Pt seen and examined at the bedside awake and alert feels better no fever, chills, N/V/D making urine Vital Signs Temperature 97.4 F L 05/23/17 09:00 Pulse Rate 101 H 05/23/17 09:00 Respiratory Rate 20 05/23/17 09:00 Blood Pressure 129/76 05/23/17 09:00 O2 Sat by Pulse Oximetry (%) 90 L 05/22/17 21:00 Intake & Output 05/20/17 05/21/17 05/22/17 05/23/17 23:59 23:59 23:59 23:59 Intake Total 120 1180 859 Output Total 250 2100 2950 500 Balance -130 -920 -2091 -500 Weight 72.575 kg 89.267 kg 85.275 kg 89.074 kg NAD awake and alert Dec BS at lung bases RRR soft NT/ND No LE edema CBC, BMP 05/23/17 06:50 05/23/17 06:50 Current Medications Albuterol/Ipratropium (Duoneb -) 1 amp NEB RQID PRN PRN Reason: SHORT OF BREATH/WHEEZING Last Admin: 05/20/17 21:11 Dose: 1 amp Furosemide (Lasix Injection -) 40 mg IVPUSH DAILY [facility] Last Admin: 05/23/17 09:35 Dose: 40 mg Heparin Sodium (Porcine) (Heparin -) 1,000 unit IVPUSH PRN PRN PRN Reason: Heparin Heparin Sodium (Porcine) (Heparin -) 5,000 unit IVPUSH PRN PRN PRN Reason: Heparin Last Admin: 05/22/17 00:57 Dose: 5,000 unit Heparin Sodium/Dextrose (Heparin Infusion -) 25,000 units in 500 mls @ 20 mls/ hr IVPB TITR TRES; 1,000 UNITS/HR PRN Reason: Protocol Last Admin: 05/22/17 17:29 Dose: 850 units/hr, 17 mls/hr Methylprednisolone Sodium Succinate (Solu-Medrol -) 40 mg IVPUSH DAILY [facility] Metoprolol Succinate (Toprol Xl -) 50 mg PO BID [facility] Last Admin: 05/23/17 09:35 Dose: 50 mg Ranitidine HCl (Zantac -) 150 mg PO BID [facility] ASSESSMENT AND PLAN: 87 year old woman with PMhx of Hypertension, Urethral stenting (? unknown if pt had stones) who presented with complaints of cough and admitted for HF and found to have worsening renal function as inpatient. #Acute Renal Failure in setting of Mild fluid overload/pleural effusions US showed no acute obstruction no urine Cr collected so unable to calculate FeUrea will repeat urine studies today continue Lasix Daily Cr stable/slightly improved today would continue diuretics with goal of evoleemia high BUN likely due in part to steroids Thank you Will follow Chano Raman DO
[2017-05-23] MEDS: FAMOTIDINE 20 MG TABLET PO SCH (12:38)
[2017-05-23] MEDS: ALBUTEROL SO4 2.5/IPRATROPIUM 0.5 INH SOL 3 ML VIAL.NEB. NEB PRN (12:56)
[2017-05-23 13:37] LABS: URINE CREATININE 23.1 mg/dL (20-320)
--- NOTE | 2017-05-23 15:21 | PN ---
Progress Note (short form) - Note Progress Note: CC: new afib with rvr S: toprol increased to bid yesterday. Cr improving with current diuretic regimen. no cp sob palps dizzy. + cough persists. no sig improvement. Current Medications Albuterol/Ipratropium (Duoneb -) 1 amp NEB RQID PRN PRN Reason: SHORT OF BREATH/WHEEZING Last Admin: 05/23/17 12:56 Dose: 1 amp Furosemide (Lasix Injection -) 40 mg IVPUSH DAILY [facility] Last Admin: 05/23/17 09:35 Dose: 40 mg Heparin Sodium (Porcine) (Heparin -) 1,000 unit IVPUSH PRN PRN PRN Reason: Heparin Heparin Sodium (Porcine) (Heparin -) 5,000 unit IVPUSH PRN PRN PRN Reason: Heparin Last Admin: 05/22/17 00:57 Dose: 5,000 unit Heparin Sodium/Dextrose (Heparin Infusion -) 25,000 units in 500 mls @ 20 mls/ hr IVPB TITR TRES; 1,000 UNITS/HR PRN Reason: Protocol Last Admin: 05/22/17 17:29 Dose: 850 units/hr, 17 mls/hr Methylprednisolone Sodium Succinate (Solu-Medrol -) 40 mg IVPUSH DAILY [facility] Metoprolol Succinate (Toprol Xl -) 50 mg PO BID [facility] Last Admin: 05/23/17 09:35 Dose: 50 mg Ranitidine HCl (Zantac -) 150 mg PO BID [facility] - Objective Vital Signs: Vital Signs - 24 hr 05/22/17 05/22/17 05/22/17 17:05 18:13 21:00 Temperature 98.3 F Pulse Rate 109 H Respiratory 18 22 Rate Blood Pressure 125/88 O2 Sat by Pulse 93 L 90 L Oximetry (%) 05/22/17 05/23/17 05/23/17 22:00 02:00 06:00 Temperature 97.9 F 97.7 F 97.5 F L Pulse Rate 104 H 98 H 92 H Respiratory 20 20 20 Rate Blood Pressure 113/58 123/65 118/66 O2 Sat by Pulse Oximetry (%) 05/23/17 05/23/17 09:00 12:55 Temperature 97.4 F L Pulse Rate 101 H Respiratory 20 Rate Blood Pressure 129/76 O2 Sat by Pulse 90 L 95 Oximetry (%) Intake & Output 05/21/17 05/22/17 05/23/17 05/24/17 07:59 07:59 07:59 08:59 Intake Total 170 1130 859 Output Total 250 2450 3100 900 Balance -80 1320 -2241 -900 Weight 196 lb 12.8 oz 188 lb 196 lb 6 oz Constitutional: Yes: No Distress, mild conversational dyspnea jvd elevated, neck supple Eyes: Yes: Conjunctiva Clear HENT: Yes: Atraumatic Neck: Yes: Supple Cardiovascular: Yes: Pulse Irregular, 2/6 sys murmur at apex. Respiratory: Yes: decreased at right base. No: Rales, Rhonchi, Wheezes Gastrointestinal: Yes: Normal Bowel Sounds, Soft Extremities: Yes: Other (warm) Edema: trace -1+ soft LE edema Peripheral Pulses WNL: Yes Neurological: Yes: Alert, Oriented no jaundice diaphoresis. Labs: CBC, BMP 05/23/17 06:50 05/23/17 06:50 Laboratory Tests 05/21/17 05/22/17 05/23/17 07:45 06:30 06:50 Magnesium 2.3 Albumin 2.8 L TSH 0.39 ekg: Afib at 134, incomplete rbbb. anterolateral std. tele: afib, 90's overnight. today 100's-110's. 10 beat run of nsvt echo 05/2017: nl lv, mild rve, nl rv fcn, mil-mod mr, sev tr, mild-mod ar, mild pr, nl rvsp chest ct images and report reviewed. notable for bilateral effusions and 4.6 thoracic dilation/aneurysm. see emr for details. cxr: bl effs Assessment/Plan 87 yo with h/o htn on norvasc, anemia and prior ureteral stent here with dry cough for a month found with evidence of CHF, rapid afib and possible URI/?pna. acute diastolic chf: -The CHF may be from diastolic dysfunction in setting of rapid afib. Also with severe tr and mild rve. Possible underlying pulmonary disease. -05/23: cont iv lasix for now. appears to be net negative with good uop and cr improving on current regimen, but weight increased. Will repeat standing weight and reassess tomorrow. - con't i/o's, daily weights, bmp. possible pna: -per pulm/pmd. No clear consolidation on chest ct. new diagnosis of afib, presented in rvr. - anterolateral std when in RVR, consider need for outpatient ischemic evaluation at discretion of outpatient combination machine tender on follow up. - increased toprol from 50 qd to bid 05/22 but HR still 100's-110's. --> will uptitrate toprol further. monitor bp with this change. - lyte repletion prn. tele monitoring. -She has a high CHADs/modified CHADS score and would benefit from AC, cont hep gtt for now until details of anemia clarified. Discussed with pmd, hospitalist and family regarding details of her anemia. presented with hgb of 7.0 here now s/p transfusion. Ongoing assessment of fdc safety of AC. nsvt - 10 beat run on tele overnight 05/23. nl lv sys function. lytes wnl. con't to monitor. uptitration of toprol as mentioned. thoracic aortic dilation/aneurysm - con't beta dorian. routine outpatient surveillance. angela: -improving with lasix, renal following.
--- NOTE | 2017-05-23 15:26 | PN ---
Progress Note (short form) - Note Progress Note: Subjective: The patient was seen and examined at the bedside, she reports her breathing is at her baseline and that she feels good. She has no complaints at this time. Current Medications Generic Name Dose Route Start Last Admin Trade Name Freq PRN Reason Stop Dose Admin Albuterol/Ipratropium 1 amp 05/20/17 07:49 05/20/17 21:11 Duoneb - NEB 1 amp RQID PRN Administration SHORT OF BREATH/WHEEZING Famotidine 20 mg 05/21/17 12:00 05/21/17 21:28 Pepcid - PO Not Given BID TRES Furosemide 40 mg 05/21/17 10:00 05/22/17 09:52 Lasix Injection - IVPUSH 40 mg DAILY [facility]ES Administration Heparin Sodium (Porcine) 1,000 unit 05/21/17 15:30 Heparin - IVPUSH PRN PRN Heparin Heparin Sodium (Porcine) 5,000 unit 05/21/17 15:30 05/22/17 00:57 Heparin - IVPUSH 5,000 unit PRN PRN Administration Heparin Levofloxacin 750 mg in 150 mls @ 150 mls/hr 05/22/17 10:00 05/22/17 09:52 Levaquin 750 Mg Premixed Ivpb - IVPB 150 mls/hr Q48H TRES Administration Heparin Sodium/Dextrose 25,000 units in 500 mls @ 20 mls/hr 05/21/17 15:30 09:53 Heparin Infusion - IVPB 850 units/hr TITR TRES 17 mls/hr Protocol Titration 1,000 UNITS/HR Methylprednisolone Sodium Succinate 40 mg 05/20/17 07:45 05/22/17 05:46 Solu-Medrol - IVPUSH 40 mg TID TRES Administration Metoprolol Succinate 50 mg 05/22/17 22:00 Toprol Xl - PO BID [facility]ES Objective: Vital Signs Period Temp Pulse Resp BP Sys/Marino Pulse Ox Last 24 Hr 97.6 F-98.6 F 70-126 20-23 100-140/57-88 92-95 Physical Exam: General: NAD, A&Ox3 Lungs: Decreased breath sounds bilaterally Heart: Irregular rate, S1S2 Abd: Soft, non-tender, non-distended. Normoactive bowel sounds Ext: Warm, well-perfused. 2+ DP/PT bilaterally Neuro: CN 2-12 intact CBCD WBC 7.7 K/mm3 (4.0-10.0) 05/22/17 06:30 RBC 4.50 M/mm3 (3.60-5.2) 05/22/17 06:30 Hgb 9.2 GM/dL (10.7-15.3) L D 05/22/17 06:30 Hct 29.7 % (32.4-45.2) L 05/22/17 06:30 MCV 66.0 fl (80-96) L 05/22/17 06:30 MCHC 30.9 g/dl (32.0-36.0) L 05/22/17 06:30 RDW 25.0 % (11.6-15.6) H 05/22/17 06:30 Plt Count 250 K/MM3 (134-434) 05/22/17 06:30 MPV 8.8 fl (7.5-11.1) 05/22/17 06:30 CMP Sodium 144 mmol/L (136-145) 05/22/17 06:30 Potassium 4.2 mmol/L (3.5-5.1) 05/22/17 06:30 Chloride 106 mmol/L (98-107) 05/22/17 06:30 Carbon Dioxide 27 mmol/L (21-32) 05/22/17 06:30 Anion Gap 11 (8-16) 05/22/17 06:30 BUN 50 mg/dL (7-18) H D 05/22/17 06:30 Creatinine 1.7 mg/dL (0.55-1.02) H 05/22/17 06:30 Creat Clearance w eGFR 28.56 (>60) 05/22/17 06:30 Random Glucose 162 mg/dL (74-106) H 05/22/17 06:30 Calcium 9.0 mg/dL (8.5-10.1) 05/22/17 06:30 Total Bilirubin 0.5 mg/dL (0.2-1.0) D 05/22/17 06:30 AST 20 U/L (15-37) 05/22/17 06:30 ALT 24 U/L (12-78) 05/22/17 06:30 Alkaline Phosphatase 148 U/L (45-117) H 05/22/17 06:30 Total Protein 5.6 g/dl (6.4-8.2) L 05/22/17 06:30 Albumin 2.8 g/dl (3.4-5.0) L 05/22/17 06:30 CARDIAC ENZYMES Creatine Kinase 14 IU/L (26-192) L 05/21/17 07:40 Troponin I < 0.03 ng/ml (0.00-0.06) 05/21/17 07:40 Microbiology 05/20/17 04:57 Blood - Peripheral Venous Blood Culture - Preliminary NO GROWTH OBTAINED AFTER 48 HOURS, INCUBATION TO CONTINUE FOR 3 DAYS. 05/20/17 04:57 Blood - Peripheral Venous Blood Culture - Preliminary NO GROWTH OBTAINED AFTER 48 HOURS, INCUBATION TO CONTINUE FOR 3 DAYS. 05/20/17 06:45 Urine For Antigen Detection Legionella Antigen - Final 05/20/17 06:45 Urine For Antigen Detection Streptococcus pneumoniae Antigen (M - Final 05/20/17 09:25 Urine - Urine Clean Catch Urine Culture - Final Assessment: This is an 87 year old female with PMHx of HTN, renal calculi, iron deficiency anemia, who presented to the ED with one month or shortness of breath and non-productive cough Plan: 1) New onset a.fib with RVR - On Heparin gtt - Increased Toprol xl to 50mg po bid - ECHO reviewed - Appreciate cardiology consult 2) Acute diastolic CHF - Likely 2/2 to diastolic dysfunction in setting of rapid a.fib - Continue Lasix 40mg IV - Strict I&O - Daily weights 3) Non-productive cough - D/c Levaquin. Discussed with Dr. Ware. Patient afebrile, WBC wnl. CT chest with no evidence of pneumonia - Appreciate pulmonary consult 4) B/l pleural effusions - CT chest with mild to moderate bilateral pleural effusions with atelectatic changes of the lower lobes. 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
[2017-05-23] MEDS ORDERED: METOPROLOL TARTRATE 25 MG TABLET (FP) PO ONE (16:00)
[2017-05-23] MEDS: HEPARIN INFUSION - 25,000 UNITS/500 ML INFUS.BAG IVPB SCH ×2 (17:51→21:34)
[2017-05-23] MEDS: FERROUS SO4 325 MG TABLET (FP) PO SCH (17:59)
[2017-05-23] MEDS: RANITIDINE HCL 150 MG TABLET (FP) PO SCH (21:33)
[2017-05-24] MEDS: ALBUTEROL SO4 2.5/IPRATROPIUM 0.5 INH SOL 3 ML VIAL.NEB. NEB PRN ×3 (07:50→20:30)
[2017-05-24 08:00] LABS: ANION GAP 4 (8-16); BLOOD UREA NITROGEN 55 mg/dL (7-18); CALCIUM 8.3 mg/dL (8.5-10.1); CHLORIDE 102 mmol/L (98-107); CO2 36 mmol/L (21-32); CREATININE 1.3 mg/dL (0.55-1.02); GLUCOSE,RANDOM 109 mg/dL (74-106); MAGNESIUM 2.2 mg/dL (1.8-2.4); PHOSPHOROUS 3.9 mg/dL (2.5-4.9); POTASSIUM 3.7 mmol/L (3.5-5.1); SODIUM 142 mmol/L (136-145)
[2017-05-24 08:03] LABS: BASO % 0.1 % (0-2.0); EOS % 0.1 % (0-4.5); HEMATOCRIT 31.9 % (32.4-45.2); HEMOGLOBIN 9.8 GM/dL (10.7-15.3); LYMPH % 17.9 % (8-40); MCH 20.4 pg (25.7-33.7); MCHC 30.7 g/dl (32.0-36.0); MEAN CELL VOLUME 66.5 fl (80-96); MEAN PLT VOLUME 8.5 fl (7.5-11.1); MONO % 9.7 % (3.8-10.2); NEUT % 72.2 % (42.8-82.8); PLATELET COUNT 226 K/MM3 (134-434); RBC 4.79 M/mm3 (3.60-5.2); RDW 26.1 % (11.6-15.6); WHITE BLOOD COUNT 6.9 K/mm3 (4.0-10.0)
[2017-05-24 08:17] LABS: ADD RBC MORPHOLOGY YES
--- NOTE | 2017-05-24 09:51 | PN ---
Progress Note (short form) - Note Progress Note: Renal Follow up for NATHALIE Pt seen and examined at the bedside awake and alert no acute complaints no CP, SOB improved no N/V/D making urine via ramirez Vital Signs Temperature 97.3 F L 05/24/17 06:27 Pulse Rate 94 H 05/24/17 06:27 Respiratory Rate 20 05/24/17 06:27 Blood Pressure 110/70 05/24/17 06:27 O2 Sat by Pulse Oximetry (%) 97 05/24/17 09:17 Intake & Output 05/21/17 05/22/17 05/23/17 05/25/17 23:59 23:59 23:59 00:59 Intake Total 8552 856 4529 444 Output Total 2100 2950 3600 550 Balance -920 -2091 -2583 -106 Weight 89.267 kg 85.275 kg 89.074 kg 87.26 kg NAD awake and alert Dec BS at lung bases RRR soft NT/ND No LE edema CBC, BMP 05/24/17 06:30 05/24/17 06:30 Current Medications Albuterol/Ipratropium (Duoneb -) 1 amp NEB RQID PRN PRN Reason: SHORT OF BREATH/WHEEZING Last Admin: 05/24/17 07:50 Dose: 1 amp Ferrous Sulfate (Feosol -) 325 mg PO BIDWM [facility] Last Admin: 05/23/17 17:59 Dose: Not Given Furosemide (Lasix Injection -) 40 mg IVPUSH DAILY [facility] Last Admin: 05/23/17 09:35 Dose: 40 mg Heparin Sodium (Porcine) (Heparin -) 1,000 unit IVPUSH PRN PRN PRN Reason: Heparin Heparin Sodium (Porcine) (Heparin -) 5,000 unit IVPUSH PRN PRN PRN Reason: Heparin Last Admin: 05/22/17 00:57 Dose: 5,000 unit Heparin Sodium/Dextrose (Heparin Infusion -) 25,000 units in 500 mls @ 20 mls/ hr IVPB TITR TRES; 1,000 UNITS/HR PRN Reason: Protocol Last Admin: 05/23/17 21:34 Dose: 850 units/hr, 17 mls/hr Methylprednisolone Sodium Succinate (Solu-Medrol -) 40 mg IVPUSH DAILY [facility] Metoprolol Succinate (Toprol Xl -) 75 mg PO BID [facility] Last Admin: 05/23/17 21:33 Dose: 75 mg Ranitidine HCl (Zantac -) 150 mg PO BID [facility] Last Admin: 05/23/17 21:33 Dose: 150 mg ASSESSMENT AND PLAN: 87 year old woman with PMhx of Hypertension, Urethral stenting (? unknown if pt had stones) who presented with complaints of cough and admitted for HF and found to have worsening renal function as inpatient. #Acute Renal Failure in setting of Mild fluid overload/pleural effusions US showed no acute obstruction FeUrea > 35% indicating some tubular injury Renal function is overall improved and stable can continue diuretics as needed for management of volume overload serum bicarb is uptrending and can be a reflection of contraction alkalosis consider abg Thank you Will follow Chano Raman DO
[2017-05-24] MEDS ORDERED: methylPREDNISolone NA SUCC 40 MG/1 ML VIAL IVPUSH SCH (10:00)
[2017-05-24] MEDS: FUROSEMIDE 40 MG/4 ML INJECTABLE VIAL IVPUSH SCH (10:20)
[2017-05-24] MEDS: RANITIDINE HCL 150 MG TABLET (FP) PO SCH ×2 (10:21→21:52)
[2017-05-24] MEDS: FERROUS SO4 325 MG TABLET (FP) PO SCH ×2 (10:21→17:50)
--- NOTE | 2017-05-24 12:22 | PN ---
Progress Note, Physician History of Present Illness: pulmonary alert,sob improving,+ c/o bilateral upper ext pain with movement - Current Medication List Current Medications: Active Medications Albuterol/Ipratropium (Duoneb -) 1 amp NEB RQID PRN PRN Reason: SHORT OF BREATH/WHEEZING Last Admin: 05/24/17 11:31 Dose: 1 amp Ferrous Sulfate (Feosol -) 325 mg PO BIDWM [facility] Last Admin: 05/24/17 10:21 Dose: 325 mg Furosemide (Lasix Injection -) 40 mg IVPUSH DAILY [facility] Last Admin: 05/24/17 10:20 Dose: 40 mg Heparin Sodium (Porcine) (Heparin -) 1,000 unit IVPUSH PRN PRN PRN Reason: Heparin Heparin Sodium (Porcine) (Heparin -) 5,000 unit IVPUSH PRN PRN PRN Reason: Heparin Last Admin: 05/22/17 00:57 Dose: 5,000 unit Heparin Sodium/Dextrose (Heparin Infusion -) 25,000 units in 500 mls @ 20 mls/ hr IVPB TITR TRES; 1,000 UNITS/HR PRN Reason: Protocol Last Titration: 05/24/17 10:21 Dose: 850 units/hr, 17 mls/hr Methylprednisolone Sodium Succinate (Solu-Medrol -) 40 mg IVPUSH DAILY [facility] Last Admin: 05/24/17 10:19 Dose: 40 mg Metoprolol Succinate (Toprol Xl -) 75 mg PO BID [facility] Last Admin: 05/24/17 10:20 Dose: 75 mg Ranitidine HCl (Zantac -) 150 mg PO BID [facility] Last Admin: 05/24/17 10:21 Dose: 150 mg - Objective Vital Signs: Vital Signs Temperature 98.1 F 05/24/17 10:00 Pulse Rate 109 H 05/24/17 10:00 Respiratory Rate 20 05/24/17 10:00 Blood Pressure 136/69 05/24/17 10:00 O2 Sat by Pulse Oximetry (%) 97 05/24/17 09:17 Constitutional: Yes: Well Nourished, Calm Eyes: Yes: WNL HENT: Yes: WNL Neck: Yes: WNL Cardiovascular: Yes: Pulse Irregular, S1, S2 Respiratory: Yes: Diminished Gastrointestinal: Yes: Normal Bowel Sounds, Soft Musculoskeletal: Yes: Joint Stiffness (bilateral upper ext pain) Extremities: Yes: WNL, Other Edema: Yes Labs: CBC, BMP 05/24/17 06:30 05/24/17 06:30 Problem List - Problems (1) Acute respiratory failure with hypoxia and hypercapnia Code(s): J96.01 - ACUTE RESPIRATORY FAILURE WITH HYPOXIA; J96.02 - ACUTE RESPIRATORY FAILURE WITH HYPERCAPNIA (2) Congestive heart failure (CHF) Code(s): I50.9 - HEART FAILURE, UNSPECIFIED Qualifiers: Heart failure type: unspecified Heart failure chronicity: acute Qualified Code(s): I50.9 - Heart failure, unspecified (3) Microcytic anemia Code(s): D50.9 - IRON DEFICIENCY ANEMIA, UNSPECIFIED (4) New onset a-fib Code(s): I48.91 - UNSPECIFIED ATRIAL FIBRILLATION (5) Pneumonia Code(s): J18.9 - PNEUMONIA, UNSPECIFIED ORGANISM Qualifiers: Pneumonia type: due to unspecified organism Laterality: bilateral Lung location: lower lobe of lung Qualified Code(s): J18.9 - Pneumonia, unspecified organism (6) Bilateral pleural effusion Code(s): J90 - PLEURAL EFFUSION, NOT ELSEWHERE CLASSIFIED Assessment/Plan IMP ACUTE HYPOXEMIC/HYPERCAPNEIC RESPIRATORY FAILURE CHF ? PNEUMONIA BILATERAL PLEURAL EFFUSIONS RAPID AFIB DIASTOLIC HF ANEMIA NATHALIE PLAN LASIX DC ABX AC BIPAP O2 NORMAL TRANSFUSION THRESHOLD MONITOR LYTES,RENAL FUNCTION MONITOR H+H F/U CHEST X-RAYS D/C STEROIDS DR MAR Problem List - Problems (1) Acute respiratory failure with hypoxia and hypercapnia Code(s): J96.01 - ACUTE RESPIRATORY FAILURE WITH HYPOXIA; J96.02 - ACUTE RESPIRATORY FAILURE WITH HYPERCAPNIA (2) Congestive heart failure (CHF) Code(s): I50.9 - HEART FAILURE, UNSPECIFIED Qualifiers: Heart failure type: unspecified Heart failure chronicity: acute Qualified Code(s): I50.9 - Heart failure, unspecified (3) Microcytic anemia Code(s): D50.9 - IRON DEFICIENCY ANEMIA, UNSPECIFIED (4) New onset a-fib Code(s): I48.91 - UNSPECIFIED ATRIAL FIBRILLATION (5) Pneumonia Code(s): J18.9 - PNEUMONIA, UNSPECIFIED ORGANISM Qualifiers: Pneumonia type: due to unspecified organism Laterality: bilateral Lung location: lower lobe of lung Qualified Code(s): J18.9 - Pneumonia, unspecified organism (6) Bilateral pleural effusion Code(s): J90 - PLEURAL EFFUSION, NOT ELSEWHERE CLASSIFIED
--- NOTE | 2017-05-24 12:22 | CONSULT ---
Consult - text type - Consultation Consultation Note: HEMATOLOGY CONSULT NOTE : HISTORY OF PRESENT ILLNESS: Patient is a 87 y/o female with a past medical history of . Patient reports This is a 87 year old female who came in with shortness of breath found to be in A fib with RVR and now rate controlled and on heparin GTT. She also came in with severe anemia with a Hb of 7 with no apparent source of GI bleed. She has a h/o of iron deficiency anemia though. She is a limited and a oor historian Comorbidities :hypertension, renal calculi, iron deficency anemia Recent Travel: none PAST MEDICAL HISTORY: hypertension and iron deficency anemia PAST SURGICAL HISTORY: urethral stent Social History: retired, resides at home alone Smoking: none Alcohol: none Drugs: none Family History: mother decieased hear failure father [place] Allergies cephalexin monohydrate [From Keflex] Allergy (Verified 05/20/16 02:01) HOME MEDICATIONS: Home Medications Medication Instructions Recorded Amlodipine Besylate [Norvasc -] 5 mg PO DAILY 09/01/12 REVIEW OF SYSTEMS CONSTITUTIONAL: Absent: fever, chills, diaphoresis, generalized weakness, malaise, loss of appetite, weight change HEENT: Absent: rhinorrhea, nasal congestion, throat pain, throat swelling, difficulty swallowing, mouth swelling, ear pain, eye pain, visual changes CARDIOVASCULAR: Absent: chest pain, syncope, palpitations, irregular heart rate, lightheadedness , peripheral edema RESPIRATORY: Absent: orthopnea, wheezing, stridor, hemoptysis GASTROINTESTINAL: Absent: abdominal pain, abdominal distension, nausea, vomiting, diarrhea, constipation, melena, hematochezia GENITOURINARY: Absent: dysuria, frequency, urgency, hesitancy, hematuria, flank pain, genital pain MUSCULOSKELETAL: Absent: myalgia, arthralgia, joint swelling, back pain, neck pain SKIN: Absent: rash, itching, pallor HEMATOLOGIC/IMMUNOLOGIC: Absent: easy bleeding, easy bruising, lymphadenopathy, frequent infections ENDOCRINE: Absent: unexplained weight gain, unexplained weight loss, heat intolerance, cold intolerance NEUROLOGIC: Absent: headache, focal weakness or paresthesias, dizziness, unsteady gait, seizure, mental status changes, bladder or bowel incontinence PSYCHIATRIC: Absent: anxiety, depression, suicidal or homicidal ideation, hallucinations. PHYSICAL EXAMINATION Vital Signs Period Temp Pulse Resp BP Sys/Marino Pulse Ox Last 24 Hr 97.3 F-99 F 72-123 20-27 110-157/64-88 94-97 GENERAL: Awake, alert, and fully oriented, anxious. HEAD: Normal with no signs of trauma. EYES: Pupils equal, round and reactive to light, extraocular movements intact, sclera anicteric, conjunctiva clear. No lid lag. EARS, NOSE, THROAT: Ears normal, nares patent, oropharynx clear without exudates. Moist mucous membranes. NECK: Normal range of motion, supple without lymphadenopathy, + JVD, or masses. LUNGS: Breath sounds equal, using a nebuliser, appaears comfortable HEART: Regular rate and rhythm, normal S1 and S2 without murmur, rub or gallop. ABDOMEN: Soft, nontender, not distended, normoactive bowel sounds, no guarding, no rebound, no masses. No hepatomegaly or splenomegaly. MUSCULOSKELETAL: Normal range of motion at all joints. No bony deformities or tenderness. No CVA tenderness. UPPER EXTREMITIES: 2+ pulses, warm, well-perfused. No cyanosis. No clubbing. No peripheral edema. LOWER EXTREMITIES: 2+ pulses, warm, well-perfused. No calf tenderness. No peripheral edema. NEUROLOGICAL: Cranial nerves II-XII intact. Normal speech. Normal gait. PSYCHIATRIC: Cooperative. Good eye contact. Appropriate mood and affect. SKIN: Warm, dry, normal turgor, no rashes or lesions noted, normal capillary refill. CBC, BMP 05/24/17 06:30 05/24/17 06:30 Active Medications Generic Name Dose Route Start Last Admin Trade Name Freq PRN Reason Stop Dose Admin Albuterol/Ipratropium 1 amp 05/20/17 07:49 05/24/17 11:31 Duoneb - NEB 1 amp RQID PRN Administration SHORT OF BREATH/WHEEZING Ferrous Sulfate 325 mg 05/23/17 17:30 05/24/17 10:21 Feosol - PO 325 mg BIDWM TRES Administration Furosemide 40 mg 05/21/17 10:00 05/24/17 10:20 Lasix Injection - IVPUSH 40 mg DAILY TRES Administration Heparin Sodium (Porcine) 1,000 unit 05/21/17 15:30 Heparin - IVPUSH PRN PRN Heparin Heparin Sodium (Porcine) 5,000 unit 05/21/17 15:30 05/22/17 00:57 Heparin - IVPUSH 5,000 unit PRN PRN Administration Heparin Heparin Sodium/Dextrose 25,000 units in 500 mls @ 20 mls/hr 05/21/17 15:30 10:21 Heparin Infusion - IVPB 850 units/hr TITR TRES 17 mls/hr Protocol Titration 1,000 UNITS/HR Methylprednisolone Sodium Succinate 40 mg 05/24/17 10:00 05/24/17 10:19 Solu-Medrol - IVPUSH 40 mg DAILY TRES Administration Metoprolol Succinate 75 mg 05/23/17 22:00 05/24/17 10:20 Toprol Xl - PO 75 mg BID TRES Administration Ranitidine HCl 150 mg 05/23/17 11:19 05/24/17 10:21 Zantac - PO 150 mg BID TRES Administration ASSESSMENT/PLAN: This is a 87 year old female withe new onset Afib with RVR. She has a high CHADS score and hence she will benefit from exterminator helper AC. But she has a iron deficiency anemia with a positive stool guiaic and hence this needs to be investigated further before the plan for exterminator helper AC. If no source of bleed is found then NOAC may be appropriate with a careful monitoring of Hb after considering risks and benefits -Hence GI consult for EGD +/- colonoscopy -continue heparin GTT for now and can be held if she needs EGD -we will continue to follow -Continue heparin GTT per protocol -using the HASBLED score -HTN, Abnormal renal function, Elderly, Bleeding tendency [stool guiaic positive]-4 which translates to atleast a moderate risk of bleed. Problem List - Problem (1) Hypertension Assessment/Plan: Code(s): I10 - ESSENTIAL (PRIMARY) HYPERTENSION (2) New onset a-fib Assessment/Plan: Code(s): I48.91 - UNSPECIFIED ATRIAL FIBRILLATION (3) Pneumonia Code(s): J18.9 - PNEUMONIA, UNSPECIFIED ORGANISM Qualifiers: Pneumonia type: due to unspecified organism Laterality: bilateral Lung location: lower lobe of lung Qualified Code(s): J18.9 - Pneumonia, unspecified organism (4) Microcytic anemia Code(s): D50.9 - IRON DEFICIENCY ANEMIA, UNSPECIFIED (5) Congestive heart failure (CHF) Code(s): I50.9 - HEART FAILURE, UNSPECIFIED Qualifiers: Heart failure type: unspecified Heart failure chronicity: acute Qualified Code(s): I50.9 - Heart failure, unspecified
[2017-05-24 12:24] LABS: ANISOCYTOSIS 3+
[2017-05-24 12:25] LABS: OVALOCYTE 1+; PLATELET ESTIMATE ADEQUATE; TARGET CELLS FEW
[2017-05-24] MEDS ORDERED: ACETAMINOPHEN 325 MG TABLET (FP) PO ONE (12:30)
--- NOTE | 2017-05-24 13:10 | PN ---
Progress Note (short form) - Note Progress Note: Subjective: The patient was seen and examined at the bedside, she denies any complaints at this time Current Medications Generic Name Dose Route Start Last Admin Trade Name Veda PRN Reason Stop Dose Admin Albuterol/Ipratropium 1 amp 05/20/17 07:49 05/24/17 11:31 Duoneb - NEB 1 amp RQID PRN Administration SHORT OF BREATH/WHEEZING Ferrous Sulfate 325 mg 05/23/17 17:30 05/24/17 10:21 Feosol - PO 325 mg BIDWM TRES Administration Furosemide 40 mg 05/21/17 10:00 05/24/17 10:20 Lasix Injection - IVPUSH 40 mg DAILY TRES Administration Heparin Sodium (Porcine) 1,000 unit 05/21/17 15:30 Heparin - IVPUSH PRN PRN Heparin Heparin Sodium (Porcine) 5,000 unit 05/21/17 15:30 05/22/17 00:57 Heparin - IVPUSH 5,000 unit PRN PRN Administration Heparin Heparin Sodium/Dextrose 25,000 units in 500 mls @ 20 mls/hr 05/21/17 15:30 10:21 Heparin Infusion - IVPB 850 units/hr TITR TRES 17 mls/hr Protocol Titration 1,000 UNITS/HR Metoprolol Succinate 75 mg 05/23/17 22:00 05/24/17 10:20 Toprol Xl - PO 75 mg BID TRES Administration Ranitidine HCl 150 mg 05/23/17 11:19 05/24/17 10:21 Zantac - PO 150 mg BID TRES Administration Objective: Vital Signs Period Temp Pulse Resp BP Sys/Marino Pulse Ox Last 24 Hr 97.3 F-99 F 72-123 20-27 110-157/64-88 94-97 Physical Exam: General: NAD, A&Ox3 Lungs: Decreased breath sounds bilaterally Heart: Irregular rate, S1S2 Abd: Soft, non-tender, non-distended. Normoactive bowel sounds Ext: Warm, well-perfused. 2+ DP/PT bilaterally Neuro: CN 2-12 intact CBCD WBC 6.9 K/mm3 (4.0-10.0) 05/24/17 06:30 RBC 4.79 M/mm3 (3.60-5.2) 05/24/17 06:30 Hgb 9.8 GM/dL (10.7-15.3) L 05/24/17 06:30 Hct 31.9 % (32.4-45.2) L 05/24/17 06:30 MCV 66.5 fl (80-96) L 05/24/17 06:30 MCHC 30.7 g/dl (32.0-36.0) L 05/24/17 06:30 RDW 26.1 % (11.6-15.6) H 05/24/17 06:30 Plt Count 226 K/MM3 (134-434) 05/24/17 06:30 MPV 8.5 fl (7.5-11.1) 05/24/17 06:30 CMP Sodium 142 mmol/L (136-145) 05/24/17 06:30 Potassium 3.7 mmol/L (3.5-5.1) 05/24/17 06:30 Chloride 102 mmol/L (98-107) 05/24/17 06:30 Carbon Dioxide 36 mmol/L (21-32) H 05/24/17 06:30 Anion Gap 4 (8-16) L 05/24/17 06:30 BUN 55 mg/dL (7-18) H 05/24/17 06:30 Creatinine 1.3 mg/dL (0.55-1.02) H 05/24/17 06:30 Creat Clearance w eGFR 28.56 (>60) 05/22/17 06:30 Random Glucose 109 mg/dL (74-106) H 05/24/17 06:30 Calcium 8.3 mg/dL (8.5-10.1) L 05/24/17 06:30 Total Bilirubin 0.5 mg/dL (0.2-1.0) D 05/22/17 06:30 AST 20 U/L (15-37) 05/22/17 06:30 ALT 24 U/L (12-78) 05/22/17 06:30 Alkaline Phosphatase 148 U/L (45-117) H 05/22/17 06:30 Total Protein 5.6 g/dl (6.4-8.2) L 05/22/17 06:30 Albumin 2.8 g/dl (3.4-5.0) L 05/22/17 06:30 CARDIAC ENZYMES Creatine Kinase 14 IU/L (26-192) L 05/21/17 07:40 Troponin I < 0.03 ng/ml (0.00-0.06) 05/21/17 07:40 Microbiology 05/20/17 04:57 Blood - Peripheral Venous Blood Culture - Preliminary NO GROWTH OBTAINED AFTER 96 HOURS, INCUBATION TO CONTINUE FOR 1 DAYS. 05/20/17 04:57 Blood - Peripheral Venous Blood Culture - Preliminary NO GROWTH OBTAINED AFTER 96 HOURS, INCUBATION TO CONTINUE FOR 1 DAYS. 05/20/17 06:45 Urine For Antigen Detection Legionella Antigen - Final 05/20/17 06:45 Urine For Antigen Detection Streptococcus pneumoniae Antigen (M - Final 05/20/17 09:25 Urine - Urine Clean Catch Urine Culture - Final Assessment: This is an 87 year old female with PMHx of HTN, renal calculi, iron deficiency anemia, who presented to the ED with one month or shortness of breath and non-productive cough Plan: 1) New onset a.fib with RVR - On Heparin gtt - Increased Toprol xl to 75mg po bid - ECHO reviewed - Appreciate hematology consult regarding switching patient to NOAC - Appreciate cardiology consult 2) Stool for occult blood positive - In the setting of iron deficiency anemia - S/p 2U PRBC 05/21 - F/u GI consult for possible EGD/colonoscopy to evaluate for source given the patient is now on Heparin gtt for A.fib 3) Acute diastolic CHF - Likely 2/2 to diastolic dysfunction in setting of rapid a.fib - Continue Lasix 40mg IV - Strict I&O - Daily weights 4) Acute respiratory failure with hypoxia and hypercapnia - Bipap as needed - O2 via NC as needed - Will need pre/post O2 prior to discharge - Discontinue IV steroids today - Continue to monitor off abx, no evidence of pneumonia on chest CT - Appreciate pulmonary consult 5) B/l pleural effusions - CT chest with mild to moderate bilateral pleural effusions with atelectatic changes of the lower lobes. Cardiomegaly with mild aneurysmal dilatation of a tortuous thoracic aorta - F/u chest x-ray - Bipap as needed 6) F/E/N: - Monitor electrolytes - Regular diet 7) Prophylaxis: - On Heparin gtt - PT evaluation 8) Dispo: - Requires continued inpatient care CODE STATUS: FULL CODE Visit type - Emergency Visit Emergency Visit: Yes ED Registration Date: 05/20/17 Care time: The patient presented to the Emergency Department on the above date and was hospitalized for further evaluation of their emergent condition. - New Patient This patient is new to me today: No - Critical Care Critical Care patient: No
[2017-05-24] MEDS: HEPARIN INFUSION - 25,000 UNITS/500 ML INFUS.BAG IVPB SCH (15:30)
--- NOTE | 2017-05-24 16:30 | PN ---
Progress Note (short form) - Note Progress Note: GI CONSULTATION: PLEASE SEE THE COMPLETE DICTATION IN BRIEF: 87F WITH NEW AFIB/CHF--STARTED ON A/C DROP IN HGB TO 7.1 WITH G++++ STOOL ON MY EXAM TODAY RESPONDED TO 2 U PRBC'S WITH HGB OF >9 PT REMAINS ON HEPARIN IV NO GI C/O PT REPORTS HAVING EGD/COLON-----BUT UNCERTAIN WHERE/WHEN/FINDINGS OCCULT GI BLEED ON NSAIDS/ AND A/C WOULD CHANGE TO PPI Q 12 HOURS F/U H/H CLOSELY IF BLEEDING ACCELERATES THEN WOULD D/C A/C IF PT TO WARRANT CUSTODIAL A/C, THEN A GI INVESTIGATION IS STRONGLY ADVISED PRIOR TO DELINEATE THE FINDINGS CAUSING OCCULT BLEEDING: ? AVFM /ULCER/INFLAMMATION/COLITIS/POLYP/TUMOR----ONCE SHE IS MEDICALLY AND RESPIRATORY CLEARED FOR SUCH THANKS, MD GELACIO
--- NOTE | 2017-05-24 16:56 | PN ---
Progress Note (short form) - Note Progress Note: CC: new afib with rvr S: toprol increased from 50 bid to 75 bid yesterday --> bp trended down today with no significant improvement in HR. Cr improving with current diuretic regimen. no cp sob palps dizzy. + cough persists but is improving. off abx and iv steroids Current Medications Albuterol/Ipratropium (Duoneb -) 1 amp NEB RQID PRN PRN Reason: SHORT OF BREATH/WHEEZING Last Admin: 05/24/17 11:31 Dose: 1 amp Ferrous Sulfate (Feosol -) 325 mg PO BIDWM [facility] Last Admin: 05/24/17 10:21 Dose: 325 mg Furosemide (Lasix Injection -) 40 mg IVPUSH DAILY [facility] Last Admin: 05/24/17 10:20 Dose: 40 mg Heparin Sodium (Porcine) (Heparin -) 1,000 unit IVPUSH PRN PRN PRN Reason: Heparin Heparin Sodium (Porcine) (Heparin -) 5,000 unit IVPUSH PRN PRN PRN Reason: Heparin Last Admin: 05/22/17 00:57 Dose: 5,000 unit Heparin Sodium/Dextrose (Heparin Infusion -) 25,000 units in 500 mls @ 20 mls/ hr IVPB TITR TRES; 1,000 UNITS/HR PRN Reason: Protocol Last Titration: 05/24/17 10:21 Dose: 850 units/hr, 17 mls/hr Metoprolol Succinate (Toprol Xl -) 75 mg PO BID [facility] Last Admin: 05/24/17 10:20 Dose: 75 mg Ranitidine HCl (Zantac -) 150 mg PO BID [facility] Last Admin: 05/24/17 10:21 Dose: 150 mg - Objective Vital Signs: Vital Signs - 24 hr 05/23/17 05/23/17 05/23/17 17:53 18:16 21:00 Temperature 99 F 98.3 F Pulse Rate 72 101 H Respiratory 21 20 20 Rate Blood Pressure 157/83 139/88 O2 Sat by Pulse 94 L Oximetry (%) 05/23/17 05/23/17 05/24/17 21:42 22:00 03:00 Temperature 98 F 98.2 F Pulse Rate 101 H 97 H Respiratory 22 20 Rate Blood Pressure 113/66 117/64 O2 Sat by Pulse 95 94 L Oximetry (%) 05/24/17 05/24/17 05/24/17 06:27 09:17 10:00 Temperature 97.3 F L 98.1 F Pulse Rate 94 H 109 H Respiratory 20 20 Rate Blood Pressure 110/70 136/69 O2 Sat by Pulse 97 Oximetry (%) 05/24/17 14:05 Temperature 97.8 F Pulse Rate 105 H Respiratory 18 Rate Blood Pressure 99/62 O2 Sat by Pulse Oximetry (%) Intake & Output 05/22/17 05/23/17 05/24/17 05/25/17 06:59 06:59 07:59 07:59 Intake Total Output Total 1100 Balance -1100 Weight Constitutional: Yes: No Distress, mild conversational dyspnea jvd elevated, neck supple Eyes: Yes: Conjunctiva Clear HENT: Yes: Atraumatic Neck: Yes: Supple Cardiovascular: Yes: Pulse Irregular, 2/6 sys murmur at apex. Respiratory: Yes: decreased at right base. No: Rales, Rhonchi, Wheezes Gastrointestinal: Yes: Normal Bowel Sounds, Soft Extremities: Yes: Other (warm) Edema: trace LE edema Peripheral Pulses WNL: Yes Neurological: Yes: Alert, Oriented no jaundice diaphoresis. Labs: CBC, BMP 05/24/17 06:30 05/24/17 06:30 Laboratory Tests 05/23/17 05/24/17 06:50 06:30 Creatinine 1.4 H Magnesium 2.2 ekg: Afib at 134, incomplete rbbb. anterolateral std. tele: afib, 90's overnight. today 100's-110's. no further nsvt echo 05/2017: nl lv, mild rve, nl rv fcn, mil-mod mr, sev tr, mild-mod ar, mild pr, nl rvsp chest ct images and report reviewed. notable for bilateral effusions and 4.6 thoracic dilation/aneurysm. see emr for details. cxr: bl effs, no significant improvement on 05/24 cxr. Assessment/Plan 87 yo with h/o htn on norvasc, fe deficiency anemia, nsaid induced gastritis, OA , anxiety/depression and prior ureteral stent here with dry cough for a month found with evidence of CHF, rapid afib and possible URI/?pna. acute diastolic chf: -The CHF may be from diastolic dysfunction in setting of rapid afib. Also with severe tr and mild rve (nl fn). Possible underlying pulmonary disease. -05/23: cont iv lasix for now. appears to be net negative with good uop and cr improving on current regimen, but weight increased. Will repeat standing weight and reassess tomorrow. - 05/24: cr stable, weight coming down, symptomatically improving. con't current regimen. - con't i/o's, daily weights, bmp. possible pna: -per pulm/pmd. Area of consolidation adjacent to pleural effusions most c/w atelectasis. con't to monitor. new diagnosis of afib, presented in rvr. - anterolateral std when in RVR, consider need for outpatient ischemic evaluation at discretion of outpatient hand thermal cutter on follow up. - 05/22 increased toprol from 50 qd to bid - 05/23 HR still 100's-110's. --> uptitrate toprol further to 75 bid. monitor bp with this change. - 05/24 Bp trending down and no signficant improvement in HR on increased toprol. Will decrease back to 50 bid. consider adding digoxin tomorrow if heart rate remains elevated. Of note, patient endorses hx of fatigue/depression ? - sometimes stays in bed all day. Unclear if this is depression or fatigue from recent anemia. Per pmd has hx of anxiety/depression. Monitor for worsening depressive sx's on toprol. AC plan as mentioned below. - lyte repletion prn. tele monitoring. -Regarding AC: She has a high CHADs/modified CHADS score and would benefit from AC, however, presented with hgb of 7.0 here now s/p transfusion. Discussed with pmd, hospitalist and family regarding details of her anemia on 05/23. Per pmd she has a longstanding hx of anemia with nsaid induced gastritis (last egd/ colonoscopy 2012). Per pmd patient has poor had hx of poor follow up in the past. PMD (Cristina) states pt not a candidate for coumadin, but would consider eliquis with close monitoring. Patient endorses recent increase in nsaid use over the past few months -taking 2 tablets of advil or aleve twice a day for the past few months. --> GI and heme c/s appreciated, GI recommends endoscopy prior to initiation of assisted anticoagulation. Discussed options with patient extensively today (3/11). She declines repeat endoscopy. Discussed the option of watchman device, however, she declines invasive procedures. Patient states she would be willing to be monitored closely with frequent labwork should we give her a trial of eliquis. Consider trial of eliquis (off nsaids) with concurrent fe supplementation and ppi treatment and close monitoring of labwork if GI/heme amenable. For now, hgb remains stable on hep gtt, cont. nsvt - 10 beat run on tele overnight 05/23, no recurrence. nl lv sys function. lytes wnl. con't to monitor. con't toprol thoracic aortic dilation/aneurysm - con't beta dorian. routine outpatient surveillance. angela: -improving with lasix, renal following.
--- NOTE | 2017-05-24 18:47 | CONS ---
DATE OF CONSULTATION: 05/24/2017 I was asked by Dr. Naida Rogers to evaluate the patient for GI bleeding. The patient is a fair informant. The history comes from her, her relative at the bedside, and the medical record. Apparently she has a past medical history of hypertension, who was admitted to [facility] a couple of days ago for increasing cough over the past month. She has had a dry cough and apparently she was from the snf, she was having a fever. She has shortness of breath, dyspnea on exertion, and she was noted to be in rapid atrial fibrillation with CHF exacerbation. She has had worsening creatinine and Renal was consulted. Pulmonary was consulted for CHF pneumonia, and apparently in the hospital she was started on anticoagulation, what appears to be for atrial fibrillation and CHF, and her hemoglobin has dropped. Stools are sent and noted to be positive. The patient tells me she has had no significant GI history in the past. She believes she has had endoscopy and colonoscopy a couple of years ago but cannot remember by whom, where, or when, and what the findings were. She does not believe anything significant was found. She does take a baby aspirin and had been taking some Aleve for some back pain, but she denied having any nausea, vomiting, abdominal pain, change in bowel habits, rectal bleeding, black tarry stools. She says that her medical doctor, Dr. Evans, always tells her she is anemic and has had her on iron recently. Her past surgical history is appendectomy, hysterectomy, and status post ureteral stent placement. She does not smoke, drink, or use drugs. 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 She is allergic to KEFLEX. Currently, in the hospital here, her medications include heparin infusion, DuoNeb, Toprol, Zantac, iron, Lasix. On physical exam, her vital signs, she is afebrile with a heart rate of 105, a blood pressure 99/62. Her sclerae are anicteric. Her neck is supple. She is an obese woman. Her abdomen has multiple scars that are healed. It is not distended but it is obese, it is soft. There is no tenderness to deep palpation. There are no masses, rebound, or guarding. Rectal exam revealed the presence of stool that is brown and strongly guaiac positive. Her laboratory data is notable in that she came in with a hemoglobin of 7.1. She got 2 units of packed cells and it went up to 9.8. Her MCV is 63 and her white count is 4.3. Her platelet count is 300,000. Her coagulation studies reveal an elevated PTT and, as noted, the white count is today 6.9. Her chemistries reveal an elevation of her BUN to 55 with a creatinine of 1.3. Her serum sodium 142, potassium 3.6, chloride 102, bicarbonate of 36, and a BUN as noted, 55, creatinine 1.3. It is my impression that the patient is an 87-year-old woman who comes in with multiple medical problems, found to be in new atrial fibrillation with congestive heart failure, was started on IV heparin anticoagulation. Prior, she had been on aspirin and nonsteroidals for back pain, and she is noted to have a drop in hemoglobin to 7.1, strongly guaiac positive stools. She did respond to 2 units of packed cells but clearly she is having an occult GI bleed and is on anticoagulation. Should she have more overt or aggressive bleeding, I think anticoagulation needs to be stopped immediately. In addition, regardless, I think she is going to need an endoscopy and colonoscopy prior to discharge as, if she needs to be on long-term anticoagulation, then it would be important to know if she has any underlying ulcers, polyps, tumors, AVMs, or malignancies in her GI tract. I have discussed this with the patient and her relative at the bedside, and once she is medically stable and cleared, we will initiate a GI evaluation. We would want to hold the heparin for approximately 3 to 6 hours prior. For now, I would recommend proton pump inhibition b.i.d. In addition, I would recommend following up the hemoglobin and hematocrit closely. We will continue to be available to aid in the management of this patient. Thank you kindly. CARLOS BRIZUELA M.D. [id number]
[2017-05-25] MEDS: HEPARIN INFUSION - 25,000 UNITS/500 ML INFUS.BAG IVPB SCH ×2 (05:41→18:39)
[2017-05-25 07:19] LABS: BASO % 0.2 % (0-2.0); EOS % 0.3 % (0-4.5); HEMATOCRIT 30.5 % (32.4-45.2); HEMOGLOBIN 9.2 GM/dL (10.7-15.3); LYMPH % 18.7 % (8-40); MCH 20.2 pg (25.7-33.7); MCHC 30.2 g/dl (32.0-36.0); MEAN CELL VOLUME 66.7 fl (80-96); MEAN PLT VOLUME 8.8 fl (7.5-11.1); MONO % 9.7 % (3.8-10.2); NEUT % 71.1 % (42.8-82.8); PLATELET COUNT 195 K/MM3 (134-434); RBC 4.57 M/mm3 (3.60-5.2); RDW 26.4 % (11.6-15.6); WHITE BLOOD COUNT 5.9 K/mm3 (4.0-10.0)
[2017-05-25] MEDS: ALBUTEROL SO4 2.5/IPRATROPIUM 0.5 INH SOL 3 ML VIAL.NEB. NEB PRN (07:19)
[2017-05-25 07:30] LABS: ALBUMIN 2.7 g/dl (3.4-5.0); ANION GAP 6 (8-16); BLOOD UREA NITROGEN 51 mg/dL (7-18); CALCIUM 8.3 mg/dL (8.5-10.1); CHLORIDE 101 mmol/L (98-107); CO2 35 mmol/L (21-32); CREATININE 1.2 mg/dL (0.55-1.02); GLUCOSE,RANDOM 127 mg/dL (74-106); POTASSIUM 3.4 mmol/L (3.5-5.1); SGOT/AST 9 U/L (15-37); SGPT/ALT 17 U/L (12-78); SODIUM 142 mmol/L (136-145)
[2017-05-25 07:34] LABS: ALK PHOS 101 U/L (45-117); BILIRUBIN,TOTAL 0.7 mg/dL (0.2-1.0)
[2017-05-25 07:38] LABS: MAGNESIUM 2.1 mg/dL (1.8-2.4); PHOSPHOROUS 3.7 mg/dL (2.5-4.9)
[2017-05-25 07:53] LABS: ADD RBC MORPHOLOGY YES
--- NOTE | 2017-05-25 08:31 | PN ---
Progress Note, Physician Chief Complaint: afib, chf History of Present Illness: severe, constant cough at home has improved significantly (not resolved) no sob (in bed mostly) no palpitations (including at home) no cp no cigs - Current Medication List Current Medications: Active Medications Ferrous Sulfate (Feosol -) 325 mg PO BIDWM [facility] Last Admin: 05/24/17 17:50 Dose: 325 mg Furosemide (Lasix Injection -) 40 mg IVPUSH DAILY [facility] Last Admin: 05/24/17 10:20 Dose: 40 mg Heparin Sodium (Porcine) (Heparin -) 1,000 unit IVPUSH PRN PRN PRN Reason: Heparin Heparin Sodium (Porcine) (Heparin -) 5,000 unit IVPUSH PRN PRN PRN Reason: Heparin Last Admin: 05/22/17 00:57 Dose: 5,000 unit Heparin Sodium/Dextrose (Heparin Infusion -) 25,000 units in 500 mls @ 20 mls/ hr IVPB TITR TRES; 1,000 UNITS/HR PRN Reason: Protocol Last Admin: 05/25/17 05:41 Dose: 850 units/hr, 17 mls/hr Metoprolol Succinate (Toprol Xl -) 50 mg PO BID [facility] Ranitidine HCl (Zantac -) 150 mg PO BID [facility] Last Admin: 05/24/17 21:52 Dose: 150 mg - Objective Vital Signs: Vital Signs Temperature 97.4 F L 05/25/17 05:43 Pulse Rate 89 05/25/17 07:18 Respiratory Rate 18 05/25/17 05:43 Blood Pressure 133/79 05/25/17 05:43 O2 Sat by Pulse Oximetry (%) 93 L 05/25/17 07:18 Constitutional: Yes: No Distress, Calm Eyes: No: Sclera Icterus HENT: No: Nasal Congestion Cardiovascular: Yes: Pulse Irregular, S1, S2, Other (PMI non diplaced). No: JVD , Gallop, Murmur Respiratory: Yes: CTA Bilaterally, Rales (bases). No: Accessory Muscle Use, Wheezes Gastrointestinal: Yes: Normal Bowel Sounds, Soft. No: Tenderness Musculoskeletal: Yes: Other (No kyphosis) Extremities: No: Cold, Cyanosis Edema: No Integumentary: No: Jaundice Neurological: Yes: Alert, Oriented (x3) Psychiatric: No: Agitated Labs: CBC, BMP 05/25/17 06:34 05/25/17 06:34 - ....Imaging EKG: Other (tele: Afib mostly 90s-110s, at times 120s) Assessment/Plan echo 05/2017: nl lv. mild rve, nl rv fcn. mil-mod mr, sev tr, mild-mod ar. nl rvsp chest ct images and report reviewed. notable for bilateral effusions and 4.6 thoracic dilation/aneurysm. see emr for details. cxr: bl effs, no significant improvement on 05/24 cxr. Assessment/Plan 87 yo with h/o htn on norvasc, fe deficiency anemia, nsaid induced gastritis, OA , anxiety/depression and prior ureteral stent here with dry cough for a month found with evidence of CHF, rapid afib and possible URI/?pna. acute diastolic chf: -CHF may be from diastolic dysfunction in setting of rapid afib. Also with severe tr and mild rve (nl fn), though reportedly normal RV syst pressure on echo. -05/23: cont iv lasix for now. appears to be net negative with good uop and cr improving on current regimen, but weight increased. Will repeat standing weight and reassess tomorrow. - 05/24: cr stable, weight coming down, symptomatically improving. con't current regimen - 05/25: wt trend down 196 to 191 here. renal fxn stable. receiving lasix 40 iv qd. cxr 05/24 with worsening effusions +/- lower zone congestion. rales on exam-- incr lasix to 40 iv bid today. - con't i/o's, daily weights, bmp. new diagnosis of afib, presented in rvr. - anterolateral st depressions when in RVR. no angina, neg troponins. outpt elective stress test for risk stratification. - HRs suboptimal here on toprol 50 bid. BPs trended down on 75 bid so changed back to 50 bid on 05/24. + h/o depression per PMD-monitor for worsening depressive sx's on toprol. - 05/25: given she is not responding well to metoprolol alone, will add diltiazem 60 TID. if bp trends down, decr dose of metoprolol (ditto if any signs of depression worsening) -CHADS-VASC = 4 (>5...first time chf here most likely sec to rapid afib). pt would benefit from AC--however she is not a candidate for AC at the present time in light of: (a) acute on chronic (longstanding) anemia here, with prior NSAID- induced gastritis, and ongoing daily (high dose) NSAID use; (b) likely UGIB ( stool occult blood +); and (c) pt refusing GI rec for rpt EGD prior to initiating AC. She also refused LA appendage closure (Watchman device) b/c does not want any invasive procedures. -Therefore, there are no effective stroke prevention options available to this pt which are safe to employ. (would not rec ASA 81 given very limited efficacy for afib stroke prevention, and hi risk of worsening NSAID-induced UGIB source.) -d/w'd again today est'd 4%/year risk of CVA (vs <1% if on AC), and the above options but she reiterates she will not pursue any invasive procedures and prefers to accept this stroke risk. do not recommend use of NOAC at the moment, in line with pt wishes to avoid procedures and hospitalization, given high probability of acutely worsening her anemia and/or causing severe bleeding. -she states that she intends to discontinue all NSAID use (back pain tolerable) . recommend ? intensive PPI (per GI) and if H/H remain stable over next 6-8 wks , and rpt stool is negative for occult blood at that time, ? can try NOAC with continued prophylactic PPI. will await GI input on this future plan -pt advised she should have f/u with us to monitor this situtation and continue discussion in future nsvt - 10 beat run on tele overnight 05/23, no recurrence. nl lv sys function. lytes wnl. con't to monitor. con't toprol HTN: - bp well controlled - cont AVN blockers as doing thoracic aortic dilation/aneurysm (4.6 cm) - con't beta dorian. routine outpatient surveillance. angela: -improving with lasix, renal following.
[2017-05-25 08:37] LABS: INR 1.13 (0.82-1.09); PROTHROMBIN TIME (PATIENT) 12.8 SEC (9.98-11.88)
--- NOTE | 2017-05-25 10:28 | PN ---
Progress Note, Physician Chief Complaint: No events. No overt bleeding - Current Medication List Current Medications: Active Medications Diltiazem HCl (Cardizem -) 60 mg PO TID [facility] Ferrous Sulfate (Feosol -) 325 mg PO BIDWM [facility] Last Admin: 05/24/17 17:50 Dose: 325 mg Furosemide (Lasix Injection -) 40 mg IVPUSH DAILY [facility] Last Admin: 05/24/17 10:20 Dose: 40 mg Heparin Sodium (Porcine) (Heparin -) 1,000 unit IVPUSH PRN PRN PRN Reason: Heparin Heparin Sodium (Porcine) (Heparin -) 5,000 unit IVPUSH PRN PRN PRN Reason: Heparin Last Admin: 05/22/17 00:57 Dose: 5,000 unit Heparin Sodium/Dextrose (Heparin Infusion -) 25,000 units in 500 mls @ 20 mls/ hr IVPB TITR TRES; 1,000 UNITS/HR PRN Reason: Protocol Last Admin: 05/25/17 05:41 Dose: 850 units/hr, 17 mls/hr Metoprolol Succinate (Toprol Xl -) 50 mg PO BID [facility] Ranitidine HCl (Zantac -) 150 mg PO BID [facility] Last Admin: 05/24/17 21:52 Dose: 150 mg - Objective Vital Signs: Vital Signs Temperature 97.4 F L 05/25/17 05:43 Pulse Rate 89 05/25/17 07:18 Respiratory Rate 18 05/25/17 05:43 Blood Pressure 133/79 05/25/17 05:43 O2 Sat by Pulse Oximetry (%) 93 L 05/25/17 07:18 Constitutional: Yes: Well Nourished, No Distress, Calm Eyes: Yes: Conjunctiva Clear HENT: Yes: Atraumatic Neck: Yes: Supple Cardiovascular: No: Bradycardia, Tachycardia Respiratory: Yes: Regular Gastrointestinal: Yes: Soft. No: Distention, Tenderness, Vomiting Neurological: Yes: Alert Labs: CBC, BMP 05/25/17 06:34 05/25/17 06:34 INR, PTT INR 1.13 (0.82-1.09) 05/25/17 06:00 CBCD WBC 5.9 K/mm3 (4.0-10.0) 05/25/17 06:34 RBC 4.57 M/mm3 (3.60-5.2) 05/25/17 06:34 Hgb 9.2 GM/dL (10.7-15.3) L 05/25/17 06:34 Hct 30.5 % (32.4-45.2) L 05/25/17 06:34 MCV 66.7 fl (80-96) L 05/25/17 06:34 MCHC 30.2 g/dl (32.0-36.0) L 05/25/17 06:34 RDW 26.4 % (11.6-15.6) H 05/25/17 06:34 Plt Count 195 K/MM3 (134-434) 05/25/17 06:34 MPV 8.8 fl (7.5-11.1) 05/25/17 06:34 CMP Sodium 142 mmol/L (136-145) 05/25/17 06:34 Potassium 3.4 mmol/L (3.5-5.1) L 05/25/17 06:34 Chloride 101 mmol/L (98-107) 05/25/17 06:34 Carbon Dioxide 35 mmol/L (21-32) H 05/25/17 06:34 Anion Gap 6 (8-16) L 05/25/17 06:34 BUN 51 mg/dL (7-18) H 05/25/17 06:34 Creatinine 1.2 mg/dL (0.55-1.02) H 05/25/17 06:34 Creat Clearance w eGFR 42.70 (>60) 05/25/17 06:34 Calcium 8.3 mg/dL (8.5-10.1) L 05/25/17 06:34 Total Bilirubin 0.7 mg/dL (0.2-1.0) D 05/25/17 06:34 AST 9 U/L (15-37) L 05/25/17 06:34 ALT 17 U/L (12-78) 05/25/17 06:34 Alkaline Phosphatase 101 U/L (45-117) 05/25/17 06:34 Total Protein 5.0 g/dl (6.4-8.2) L 05/25/17 06:34 Albumin 2.7 g/dl (3.4-5.0) L 05/25/17 06:34 Problem List - Problems (1) Microcytic hypochromic anemia Code(s): D50.9 - IRON DEFICIENCY ANEMIA, UNSPECIFIED (2) Microcytic anemia Code(s): D50.9 - IRON DEFICIENCY ANEMIA, UNSPECIFIED Assessment/Plan micorcytic hypochromic anemia and hemoccult positive stools. No signs of overt bleeding Walker EGD and colonoscopy on Thursday if cleared by primary/cardiology teams. Hold evening dose of heparin on Thursday night.
[2017-05-25 10:32] LABS: ANISOCYTOSIS 2+; MACROCYTOSIS 0; PLATELET ESTIMATE NORMAL; TARGET CELLS 2+
[2017-05-25 10:50] LABS: OVALOCYTE 2+
[2017-05-25] MEDS: FERROUS SO4 325 MG TABLET (FP) PO SCH ×2 (10:54→18:39)
[2017-05-25] MEDS: RANITIDINE HCL 150 MG TABLET (FP) PO SCH ×2 (11:00→21:14)
[2017-05-25] MEDS: POTASSIUM CHLORIDE TABS 10 MEQ TABLET.ER (FP) PO SCH ×2 (11:04→21:14)
[2017-05-25] MEDS ORDERED: dilTIAZem HCL 30 MG TABLET (FP) PO SCH (12:00)
[2017-05-25] MEDS: dilTIAZem HCL 60 MG TABLET (FP) PO SCH ×3 (13:26→21:15)
[2017-05-25] MEDS: FUROSEMIDE 40 MG/4 ML INJECTABLE VIAL IVPUSH SCH (13:26)
--- NOTE | 2017-05-25 14:55 | PN ---
Progress Note, Physician History of Present Illness: PULMONARY ALERT,LESS DYSPNEIC,-CP - Current Medication List Current Medications: Active Medications Diltiazem HCl (Cardizem -) 60 mg PO TID [facility] Last Admin: 05/25/17 14:21 Dose: Not Given Ferrous Sulfate (Feosol -) 325 mg PO BIDWM [facility] Last Admin: 05/25/17 10:54 Dose: 325 mg Furosemide (Lasix Injection -) 40 mg IVPUSH BIDLASIX [facility] Last Admin: 05/25/17 13:26 Dose: 40 mg Heparin Sodium (Porcine) (Heparin -) 1,000 unit IVPUSH PRN PRN PRN Reason: Heparin Heparin Sodium (Porcine) (Heparin -) 5,000 unit IVPUSH PRN PRN PRN Reason: Heparin Last Admin: 05/22/17 00:57 Dose: 5,000 unit Heparin Sodium/Dextrose (Heparin Infusion -) 25,000 units in 500 mls @ 20 mls/ hr IVPB TITR TRES; 1,000 UNITS/HR PRN Reason: Protocol Last Titration: 05/25/17 11:05 Dose: 850 units/hr, 17 mls/hr Metoprolol Succinate (Toprol Xl -) 50 mg PO BID [facility] Last Admin: 05/25/17 10:59 Dose: 50 mg Potassium Chloride (K-Dur -) 20 meq PO BID [facility] Last Admin: 05/25/17 11:04 Dose: 20 meq Ranitidine HCl (Zantac -) 150 mg PO BID [facility] Last Admin: 05/25/17 11:00 Dose: 150 mg - Objective Vital Signs: Vital Signs Temperature 97.9 F 05/25/17 14:24 Pulse Rate 94 H 05/25/17 14:24 Respiratory Rate 16 05/25/17 14:24 Blood Pressure 100/66 05/25/17 14:24 O2 Sat by Pulse Oximetry (%) 93 L 05/25/17 09:00 Constitutional: Yes: Well Nourished, Calm Eyes: Yes: WNL HENT: Yes: WNL Neck: Yes: WNL Cardiovascular: Yes: Pulse Irregular, S1, S2 Respiratory: Yes: Rales (BIBASILAR CRACKLES) Gastrointestinal: Yes: Normal Bowel Sounds, Soft Extremities: Yes: WNL Edema: No Labs: CBC, BMP 05/25/17 06:34 05/25/17 06:34 INR, PTT INR 1.13 (0.82-1.09) 05/25/17 06:00 Problem List - Problems (1) Acute respiratory failure with hypoxia and hypercapnia Code(s): J96.01 - ACUTE RESPIRATORY FAILURE WITH HYPOXIA; J96.02 - ACUTE RESPIRATORY FAILURE WITH HYPERCAPNIA (2) Congestive heart failure (CHF) Code(s): I50.9 - HEART FAILURE, UNSPECIFIED Qualifiers: Heart failure type: unspecified Heart failure chronicity: acute Qualified Code(s): I50.9 - Heart failure, unspecified (3) Microcytic anemia Code(s): D50.9 - IRON DEFICIENCY ANEMIA, UNSPECIFIED (4) New onset a-fib Code(s): I48.91 - UNSPECIFIED ATRIAL FIBRILLATION (5) Pneumonia Code(s): J18.9 - PNEUMONIA, UNSPECIFIED ORGANISM Qualifiers: Pneumonia type: due to unspecified organism Laterality: bilateral Lung location: lower lobe of lung Qualified Code(s): J18.9 - Pneumonia, unspecified organism (6) Bilateral pleural effusion Code(s): J90 - PLEURAL EFFUSION, NOT ELSEWHERE CLASSIFIED Assessment/Plan IMP ACUTE HYPOXEMIC/HYPERCAPNEIC RESPIRATORY FAILURE IMPROVING CHF BILATERAL PLEURAL EFFUSIONS RAPID AFIB DIASTOLIC HF ANEMIA NATHALIE PLAN LASIX DC ABX AC BIPAP PRN O2 NORMAL TRANSFUSION THRESHOLD MONITOR LYTES,RENAL FUNCTION MONITOR H+H F/U CHEST X-RAYS DR MAR Problem List - Problems (1) Acute respiratory failure with hypoxia and hypercapnia Code(s): J96.01 - ACUTE RESPIRATORY FAILURE WITH HYPOXIA; J96.02 - ACUTE RESPIRATORY FAILURE WITH HYPERCAPNIA (2) Congestive heart failure (CHF) Code(s): I50.9 - HEART FAILURE, UNSPECIFIED Qualifiers: Heart failure type: unspecified Heart failure chronicity: acute Qualified Code(s): I50.9 - Heart failure, unspecified (3) Microcytic anemia Code(s): D50.9 - IRON DEFICIENCY ANEMIA, UNSPECIFIED (4) New onset a-fib Code(s): I48.91 - UNSPECIFIED ATRIAL FIBRILLATION (5) Pneumonia Code(s): J18.9 - PNEUMONIA, UNSPECIFIED ORGANISM Qualifiers: Pneumonia type: due to unspecified organism Laterality: bilateral Lung location: lower lobe of lung Qualified Code(s): J18.9 - Pneumonia, unspecified organism (6) Bilateral pleural effusion Code(s): J90 - PLEURAL EFFUSION, NOT ELSEWHERE CLASSIFIED
--- NOTE | 2017-05-25 15:47 | PN ---
Physical Exam: SUBJECTIVE: Patient seen and examined. She states she is better than when she first came in. She is aware of procedure tomorrow. OBJECTIVE: Vital Signs Period Temp Pulse Resp BP Sys/Marino Pulse Ox Last 24 Hr 97.4 F-98.5 F 89-107 16-20 100-133/64-79 93-97 PE Neuro: alert, awake, cn 2-12intact Pulm: L base diminished w rales > R +NC CV: s1 s2 regular rhythm Abd: s nt nd + bs Ext: +2 non pitting edema, warm Laboratory Results - last 24 hr 05/20/17 05/20/17 05/25/17 04:00 08:15 06:00 WBC RBC Hgb Hct MCV MCH MCHC RDW Plt Count MPV Neutrophils % Lymphocytes % Monocytes % Eosinophils % Basophils % Hypochromia Platelet Estimate Polychromasia Poikilocytosis Anisocytosis Microcytosis Macrocytosis Target Cells Ovalocytes Schistocytes PT with INR 12.80 H INR 1.13 PTT (Actin FS) 25.0 L Sodium Potassium Chloride Carbon Dioxide Anion Gap BUN Creatinine Creat Clearance w eGFR Random Glucose Calcium Phosphorus Magnesium Ferritin Total Bilirubin AST ALT Alkaline Phosphatase Total Protein Albumin Vitamin B12 Blood Type O POSITIVE Antibody Screen Negative Crossmatch See Detail 05/25/17 05/25/17 05/25/17 06:34 06:34 06:34 WBC RBC Hgb Hct MCV MCH MCHC RDW Plt Count MPV Neutrophils % Lymphocytes % Monocytes % Eosinophils % Basophils % Hypochromia Platelet Estimate Polychromasia Poikilocytosis Anisocytosis Microcytosis Macrocytosis Target Cells Ovalocytes Schistocytes PT with INR INR PTT (Actin FS) 66.1 H Sodium 142 Potassium 3.4 L Chloride 101 Carbon Dioxide 35 H Anion Gap 6 L BUN 51 H Creatinine 1.2 H Creat Clearance w eGFR 42.70 Random Glucose 127 H Calcium 8.3 L Phosphorus 3.7 Magnesium 2.1 Ferritin 10.056 Total Bilirubin 0.7 D AST 9 L ALT 17 Alkaline Phosphatase 101 Total Protein 5.0 L Albumin 2.7 L Vitamin B12 676 Blood Type Antibody Screen Crossmatch 05/25/17 06:34 WBC 5.9 RBC 4.57 Hgb 9.2 L Hct 30.5 L MCV 66.7 L MCH 20.2 L MCHC 30.2 L RDW 26.4 H Plt Count 195 MPV 8.8 Neutrophils % 71.1 Lymphocytes % 18.7 Monocytes % 9.7 Eosinophils % 0.3 D Basophils % 0.2 Hypochromia 1+ Platelet Estimate Normal Polychromasia 1+ Poikilocytosis 0 Anisocytosis 2+ Microcytosis 2+ Macrocytosis 0 Target Cells 2+ Ovalocytes 2+ Schistocytes 1+ PT with INR INR PTT (Actin FS) Sodium Potassium Chloride Carbon Dioxide Anion Gap BUN Creatinine Creat Clearance w eGFR Random Glucose Calcium Phosphorus Magnesium Ferritin Total Bilirubin AST ALT Alkaline Phosphatase Total Protein Albumin Vitamin B12 Blood Type Antibody Screen Crossmatch Active Medications Generic Name Dose Route Start Last Admin Trade Name Freq PRN Reason Stop Dose Admin Diltiazem HCl 60 mg 05/25/17 14:00 05/25/17 14:21 Cardizem - PO Not Given TID TRES Ferrous Sulfate 325 mg 05/23/17 17:30 05/25/17 10:54 Feosol - PO 325 mg BIDWM TRES Administration Furosemide 40 mg 05/25/17 14:00 05/25/17 13:26 Lasix Injection - IVPUSH 40 mg BIDLASIX TRES Administration Heparin Sodium (Porcine) 1,000 unit 05/21/17 15:30 Heparin - IVPUSH PRN PRN Heparin Heparin Sodium (Porcine) 5,000 unit 05/21/17 15:30 05/22/17 00:57 Heparin - IVPUSH 5,000 unit PRN PRN Administration Heparin Heparin Sodium/Dextrose 25,000 units in 500 mls @ 20 mls/hr 05/21/17 15:30 11:05 Heparin Infusion - IVPB 850 units/hr TITR TRES 17 mls/hr Protocol Titration 1,000 UNITS/HR Metoprolol Succinate 50 mg 05/25/17 10:00 05/25/17 10:59 Toprol Xl - PO 50 mg BID TRES Administration Potassium Chloride 20 meq 05/25/17 10:45 05/25/17 11:04 K-Dur - PO 20 meq BID TRES Administration Ranitidine HCl 150 mg 05/23/17 11:19 05/25/17 11:00 Zantac - PO 150 mg BID TRES Administration Assessment: 87 year old female with PMHx of HTN, renal calculi, iron deficiency anemia, who presented to the ED with one month or shortness of breath and non- productive cough Plan: 1. New onset a.fib with RVR - On Heparin gtt - Started cardizm 60mg TID - Decrease Toprol xl to 50mg po bid - For now, will move forward with EGD/colonoscopy , following findings and 6-8 weeks of no bleeding signs consider Eliquis as outpt 2. Stool for occult blood positive - In the setting of iron deficiency anemia - S/p 2U PRBC 05/21 - EGD/colonoscopy , hold heparin gtt 4 hours prior to procedure 3. Acute diastolic CHF - Likely 2/2 to diastolic dysfunction in setting of rapid a.fib - Increase Lasix 40mg IV BID 4. Acute hypoxia and hypercapnia resp failure - d/w IR will move forward with thoracentesis tomorrow, hold heparin gtt at 5am - Bipap as needed - Stopped steroids 5. B/l pleural effusions - CT chest with mild to moderate bilateral pleural effusions with atelectatic changes of the lower lobes. Cardiomegaly with mild aneurysmal dilatation of a tortuous thoracic aorta - Bipap as needed 6. Prophylaxis - Heparin gtt - PT evaluation 7. Hypokalemia - Start kcl 20meq BID Visit type - Emergency Visit Emergency Visit: Yes ED Registration Date: 05/20/17 Care time: The patient presented to the Emergency Department on the above date and was hospitalized for further evaluation of their emergent condition. - New Patient This patient is new to me today: Yes Date on this admission: 05/25/17 - Critical Care Critical Care patient: No - Discharge Referral Referred to [facility] Med [facility] No
[2017-05-25] MEDS ORDERED: POTASSIUM CHLORIDE ORAL LIQUID 20 MEQ/15 ML PO ONE (16:10)
[2017-05-26] MEDS ORDERED: guaiFENesin 200 MG/10 ML 10 ML UNIT-DOSE CUPS PO ONE (05:07)
[2017-05-26] MEDS: FUROSEMIDE 40 MG/4 ML INJECTABLE VIAL IVPUSH SCH ×2 (05:45→13:57)
[2017-05-26] MEDS: dilTIAZem HCL 60 MG TABLET (FP) PO SCH ×2 (05:45→13:57)
[2017-05-26 07:57] LABS: HEMATOCRIT 32.4 % (32.4-45.2); HEMOGLOBIN 9.7 GM/dL (10.7-15.3); MCH 20.2 pg (25.7-33.7); MEAN CELL VOLUME 67.2 fl (80-96); MEAN PLT VOLUME 9.1 fl (7.5-11.1); PLATELET COUNT 191 K/MM3 (134-434); RBC 4.82 M/mm3 (3.60-5.2); RDW 27.5 % (11.6-15.6); WHITE BLOOD COUNT 7.4 K/mm3 (4.0-10.0)
--- NOTE | 2017-05-26 09:29 | PN ---
Physical Exam: SUBJECTIVE: Patient seen and examined. She has no new complaints. She wants to get up to use the bathroom. Denies sob OBJECTIVE: Vital Signs Period Temp Pulse Resp BP Sys/Marino Pulse Ox Last 24 Hr 97.5 F-98.1 F 82-107 16-20 92-119/50-75 93-98 PE Neuro: alert, awake, cn 2-12intact Pulm: bi basilar rales +NC CV: s1 s2 irregular rhythm Abd: s nt nd +bs Ext: +2 pitting edema Laboratory Results - last 24 hr 05/20/17 05/25/17 05/26/17 04:00 06:34 05:30 WBC 7.4 RBC 4.82 Hgb 9.7 L Hct 32.4 MCV 67.2 L MCH 20.2 L MCHC 30.0 L RDW 27.5 H Plt Count 191 MPV 9.1 Hypochromia 1+ Platelet Estimate Normal Polychromasia 1+ Poikilocytosis 0 Anisocytosis 2+ Microcytosis 2+ Macrocytosis 0 Target Cells 2+ Ovalocytes 2+ Schistocytes 1+ PTT (Actin FS) 25.0 L 05/26/17 05:30 WBC RBC Hgb Hct MCV MCH MCHC RDW Plt Count MPV Hypochromia Platelet Estimate Polychromasia Poikilocytosis Anisocytosis Microcytosis Macrocytosis Target Cells Ovalocytes Schistocytes PTT (Actin FS) 52.8 H Active Medications Generic Name Dose Route Start Last Admin Trade Name Freq PRN Reason Stop Dose Admin Diltiazem HCl 60 mg 05/25/17 14:00 05/26/17 05:45 Cardizem - PO 60 mg TID TRES Administration Ferrous Sulfate 325 mg 05/23/17 17:30 05/25/17 18:39 Feosol - PO 325 mg BIDWM TRES Administration Furosemide 40 mg 05/25/17 14:00 05/26/17 05:45 Lasix Injection - IVPUSH 40 mg BIDLASIX TRES Administration Heparin Sodium (Porcine) 1,000 unit 05/21/17 15:30 Heparin - IVPUSH PRN PRN Heparin Heparin Sodium (Porcine) 5,000 unit 05/21/17 15:30 05/22/17 00:57 Heparin - IVPUSH 5,000 unit PRN PRN Administration Heparin Metoprolol Succinate 50 mg 05/25/17 10:00 03/12/18 21:14 Toprol Xl - PO 50 mg BID TRES Administration Potassium Chloride 20 meq 05/25/17 10:45 05/25/17 21:14 K-Dur - PO 20 meq BID TRES Administration Ranitidine HCl 150 mg 05/23/17 11:19 05/25/17 21:14 Zantac - PO 150 mg BID TRES Administration Assessment: 87 year old female with PMHx of HTN, renal calculi, iron deficiency anemia, who presented to the ED with one month or shortness of breath and non- productive cough Plan: 1. New onset a.fib with RVR - Held Heparin gtt for thoracentesis today - Continue Cardizm 60mg TID - Toprol xl to 50mg po bid - For now, will move forward with EGD/colonoscopy , following findings and 6-8 weeks of no bleeding signs consider Eliquis as outpt per cards 2. Stool for occult blood positive - In the setting of iron deficiency anemia - For EGD/colonoscopy , hold heparin gtt 4 hours prior to procedure - S/p 2U PRBC 05/21 3. Acute diastolic CHF - Likely 2/2 to diastolic dysfunction in setting of rapid A.fib - Continue Lasix 40mg IV BID 4. Acute hypoxia and hypercapnia resp failure - For thoracentesis today - Bipap as needed - Stopped steroids 5. B/l pleural effusions - CT chest with mild to moderate bilateral pleural effusions with atelectatic changes of the lower lobes. Cardiomegaly with mild aneurysmal dilatation of a tortuous thoracic aorta - Bipap as needed 6. Hypokalemia - KCL 20meq BID Visit type - Emergency Visit Emergency Visit: Yes ED Registration Date: 05/20/17 Care time: The patient presented to the Emergency Department on the above date and was hospitalized for further evaluation of their emergent condition. - New Patient This patient is new to me today: No - Critical Care Critical Care patient: No
[2017-05-26 09:40] LABS: ANION GAP 4 (8-16); BLOOD UREA NITROGEN 43 mg/dL (7-18); CALCIUM 8.3 mg/dL (8.5-10.1); CHLORIDE 100 mmol/L (98-107); CO2 38 mmol/L (21-32); GLUCOSE,RANDOM 102 mg/dL (74-106); POTASSIUM 3.8 mmol/L (3.5-5.1); SODIUM 142 mmol/L (136-145)
[2017-05-26] MEDS: FERROUS SO4 325 MG TABLET (FP) PO SCH ×2 (10:07→17:33)
[2017-05-26] MEDS: RANITIDINE HCL 150 MG TABLET (FP) PO SCH ×2 (10:07→22:35)
[2017-05-26] MEDS: POTASSIUM CHLORIDE TABS 10 MEQ TABLET.ER (FP) PO SCH ×2 (10:07→22:35)
--- NOTE | 2017-05-26 11:34 | PN ---
Progress Note (short form) - Note Progress Note: Chief Complaint: afib, chf History of Present Illness: yesterday lasix increased to bid dosing. diltiazem 60 tid added for better rate control --> sbp's slightly lower, 90's- 110's. HR's improved, now 90's standing kcl added. s/p thoracentesis. she is now agreeable to endoscopy --> planned for tomorrow. cough improving no sob (in bed mostly) no palpitations no cp no cigs Current Medications Diltiazem HCl (Cardizem -) 60 mg PO TID [facility] Last Admin: 05/26/17 05:45 Dose: 60 mg Ferrous Sulfate (Feosol -) 325 mg PO BIDWM [facility] Last Admin: 05/26/17 10:07 Dose: 325 mg Furosemide (Lasix Injection -) 40 mg IVPUSH BIDLASIX [facility] Last Admin: 05/26/17 05:45 Dose: 40 mg Heparin Sodium (Porcine) (Heparin -) 1,000 unit IVPUSH PRN PRN PRN Reason: Heparin Heparin Sodium (Porcine) (Heparin -) 5,000 unit IVPUSH PRN PRN PRN Reason: Heparin Last Admin: 05/22/17 00:57 Dose: 5,000 unit Metoprolol Succinate (Toprol Xl -) 50 mg PO BID [facility] Last Admin: 05/26/17 10:07 Dose: 50 mg Potassium Chloride (K-Dur -) 20 meq PO BID [facility] Last Admin: 05/26/17 10:07 Dose: 20 meq Ranitidine HCl (Zantac -) 150 mg PO BID [facility] Last Admin: 05/26/17 10:07 Dose: 150 mg - Objective Vital Signs: Vital Signs - 24 hr 05/25/17 05/25/17 05/25/17 14:24 15:33 17:53 Temperature 97.9 F 97.6 F Pulse Rate 94 H 94 H 91 H Respiratory 16 18 Rate Blood Pressure 100/66 117/68 O2 Sat by Pulse 93 L Oximetry (%) 05/25/17 05/25/17 05/26/17 20:55 21:00 02:00 Temperature 97.7 F 97.5 F L Pulse Rate 102 H 92 H Respiratory 20 20 Rate Blood Pressure 105/57 92/50 O2 Sat by Pulse 94 L Oximetry (%) 05/26/17 05/26/17 05/26/17 06:00 08:36 10:00 Temperature 97.9 F 98.0 F Pulse Rate 82 78 Respiratory 20 20 Rate Blood Pressure 114/67 110/71 O2 Sat by Pulse 98 Oximetry (%) Intake & Output 05/24/17 05/25/17 05/26/17 05/27/17 07:59 07:59 07:59 07:59 Intake Total 614 1000 350 Output Total 2600 2200 700 Balance -1985 -1200 -350 Weight 191 lb 187 lb 6.4 oz Constitutional: No Distress, jvd elevated, neck supple Eyes: Yes: Conjunctiva Clear HENT: Yes: Atraumatic Neck: Yes: Supple Cardiovascular: Yes: Pulse Irregular, 2/6 sys murmur at apex. Respiratory: Yes: bibasilar rales. No: Rales, Rhonchi, Wheezes Gastrointestinal: Yes: Normal Bowel Sounds, Soft Extremities: Yes: Other (warm) Edema: trace LE edema Peripheral Pulses WNL: Yes Neurological: Yes: Alert, Oriented no jaundice diaphoresis. Labs: - ....Imaging EKG: Other (tele: rate controlled Afib ) Assessment/Plan echo 05/2017: nl lv. mild rve, nl rv fcn. mil-mod mr, sev tr, mild-mod ar. nl rvsp chest ct images and report reviewed. notable for bilateral effusions and 4.6 thoracic dilation/aneurysm. see emr for details. cxr: bl effs, no significant improvement on 05/24 cxr. Assessment/Plan 87 yo with h/o htn on norvasc, fe deficiency anemia, nsaid induced gastritis, OA , anxiety/depression and prior ureteral stent here with dry cough for a month found with evidence of CHF, rapid afib and possible URI/?pna. acute diastolic chf: -CHF may be from diastolic dysfunction in setting of rapid afib. Also with severe tr and mild rve (nl fn), though reportedly normal RV syst pressure on echo. -05/23: cont iv lasix for now. appears to be net negative with good uop and cr improving on current regimen, but weight increased. Will repeat standing weight and reassess tomorrow. - 05/24: cr stable, weight coming down, symptomatically improving. con't current regimen - 05/25: wt trend down 196 to 191 here. renal fxn stable. receiving lasix 40 iv qd. cxr 05/24 with worsening effusions +/- lower zone congestion. rales on exam-- incr lasix to 40 iv bid today. - 05/26: ongoing clinical improvement on bid lasix, stable bmp. Con't same. Monitor k closely, pt now on standing kcl. Also s/p thora today. - con't i/o's, daily weights, bmp. new diagnosis of afib, presented in rvr. Re rate control. - anterolateral st depressions when in RVR. no angina, neg troponins. outpt elective stress test for risk stratification. - HRs suboptimal here on toprol 50 bid. BPs trended down on 75 bid so changed back to 50 bid on 05/24. + h/o depression per PMD-monitor for worsening depressive sx's on toprol. - 05/25: not responding well to metoprolol alone, added diltiazem 60 TID. if bp trends down, decr dose of metoprolol (ditto if any signs of depression worsening) - 05/26: responding well to diltiazem, sbp's stable in the 110's. Will further uptitrate diltiazem to 90 tid and wean toprol to 25 bid. RE AC: - 05/25: CHADS-VASC = 4 (>5...first time chf here most likely sec to rapid afib) . pt would benefit from AC--however she is not a candidate for AC at the present time in light of: (a) acute on chronic (longstanding) anemia here, with prior NSAID-induced gastritis, and ongoing daily (high dose) NSAID use; (b) likely UGIB (stool occult blood +); and (c) pt refusing GI rec for rpt EGD prior to initiating AC. She also refused LA appendage closure (Watchman device) b/c does not want any invasive procedures. Therefore, there are no effective stroke prevention options available to this pt which are safe to employ. (would not rec ASA 81 given very limited efficacy for afib stroke prevention, and hi risk of worsening NSAID-induced UGIB source.) Dr. Lackey d/w patient/family again 05/25 - est'd 4%/year risk of CVA (vs <1% if on AC), and the above options but she reiterates she will not pursue any invasive procedures and prefers to accept this stroke risk. do not recommend use of NOAC at the moment, in line with pt wishes to avoid procedures and hospitalization, given high probability of acutely worsening her anemia and/or causing severe bleeding. she states that she intends to discontinue all NSAID use (back pain tolerable). recommend ? intensive PPI (per GI) and if H/H remain stable over next 6-8 wks, and rpt stool is negative for occult blood at that time, ? can try NOAC with continued prophylactic PPI. will await GI input on this future plan. pt advised she should have f/u with us to monitor this situtation and continue discussion in future - 05/26: pt now amenable to endoscopy. hgb stable. heparin drip on hold today for thoracentesis. nsvt - 10 beat run on tele overnight 05/23, no recurrence. nl lv sys function. lytes wnl. con't to monitor. con't av [place] blockade HTN: - bp trending down with uptitration of rate control regimen - cont to monitor on AVN blockers as doing thoracic aortic dilation/aneurysm (4.6 cm) - con't beta dorian. routine outpatient surveillance. angela, - now resolved with diuresis, renal following.
[2017-05-26 12:45] LABS: PLEURAL FLUID COLOR YELLOW
[2017-05-26 12:47] LABS: PLEURAL FLUID APPEARANCE CLEAR; PLEURAL FLUID RBC 1105 /mm3
[2017-05-26 12:50] LABS: GLUCOSE,PLEURAL FLUID 125.867
[2017-05-26 12:53] LABS: TOTAL PROTEIN,PLEURAL FLUID 2.098
--- NOTE | 2017-05-26 12:53 | PN ---
Progress Note, Physician History of Present Illness: pulmonary alert,nad dyspnea improving.,s/p thoracentesis tolerated procedure well w/o compications pleural fluid c/w transudate - Current Medication List Current Medications: Active Medications Diltiazem HCl (Cardizem -) 60 mg PO TID [facility] Last Admin: 05/26/17 05:45 Dose: 60 mg Ferrous Sulfate (Feosol -) 325 mg PO BIDWM [facility] Last Admin: 05/26/17 10:07 Dose: 325 mg Furosemide (Lasix Injection -) 40 mg IVPUSH BIDLASIX [facility] Last Admin: 05/26/17 05:45 Dose: 40 mg Heparin Sodium (Porcine) (Heparin -) 1,000 unit IVPUSH PRN PRN PRN Reason: Heparin Heparin Sodium (Porcine) (Heparin -) 5,000 unit IVPUSH PRN PRN PRN Reason: Heparin Last Admin: 05/22/17 00:57 Dose: 5,000 unit Metoprolol Succinate (Toprol Xl -) 50 mg PO BID [facility] Last Admin: 05/26/17 10:07 Dose: 50 mg Potassium Chloride (K-Dur -) 20 meq PO BID [facility] Last Admin: 05/26/17 10:07 Dose: 20 meq Ranitidine HCl (Zantac -) 150 mg PO BID [facility] Last Admin: 05/26/17 10:07 Dose: 150 mg - Objective Vital Signs: Vital Signs Temperature 98.0 F 05/26/17 10:00 Pulse Rate 78 05/26/17 10:00 Respiratory Rate 20 05/26/17 10:00 Blood Pressure 110/71 05/26/17 10:00 O2 Sat by Pulse Oximetry (%) 90 L 05/26/17 09:00 Constitutional: Yes: Well Nourished, Calm Eyes: Yes: WNL HENT: Yes: WNL Neck: Yes: WNL Cardiovascular: Yes: Pulse Irregular, S1, S2 Respiratory: Yes: Rales (few bibasilar rales) Gastrointestinal: Yes: Normal Bowel Sounds, Soft Extremities: Yes: WNL Edema: Yes Labs: CBC, BMP 05/26/17 05:30 05/26/17 06:00 INR, PTT INR 1.13 (0.82-1.09) 05/25/17 06:00 Problem List - Problems (1) Acute respiratory failure with hypoxia and hypercapnia Code(s): J96.01 - ACUTE RESPIRATORY FAILURE WITH HYPOXIA; J96.02 - ACUTE RESPIRATORY FAILURE WITH HYPERCAPNIA (2) Congestive heart failure (CHF) Code(s): I50.9 - HEART FAILURE, UNSPECIFIED Qualifiers: Heart failure type: unspecified Heart failure chronicity: acute Qualified Code(s): I50.9 - Heart failure, unspecified (3) Microcytic anemia Code(s): D50.9 - IRON DEFICIENCY ANEMIA, UNSPECIFIED (4) New onset a-fib Code(s): I48.91 - UNSPECIFIED ATRIAL FIBRILLATION (5) Pneumonia Code(s): J18.9 - PNEUMONIA, UNSPECIFIED ORGANISM Qualifiers: Pneumonia type: due to unspecified organism Laterality: bilateral Lung location: lower lobe of lung Qualified Code(s): J18.1 - Lobar pneumonia, unspecified organism (6) Bilateral pleural effusion Code(s): J90 - PLEURAL EFFUSION, NOT ELSEWHERE CLASSIFIED Assessment/Plan IMP ACUTE HYPOXEMIC/HYPERCAPNEIC RESPIRATORY FAILURE IMPROVING CHF BILATERAL PLEURAL EFFUSIONS RAPID AFIB DIASTOLIC HF ANEMIA NATHALIE PLAN LASIX DC ABX AC BIPAP PRN O2 NORMAL TRANSFUSION THRESHOLD MONITOR LYTES,RENAL FUNCTION MONITOR H+H ABG DR MAR Problem List - Problems (1) Acute respiratory failure with hypoxia and hypercapnia Code(s): J96.01 - ACUTE RESPIRATORY FAILURE WITH HYPOXIA; J96.02 - ACUTE RESPIRATORY FAILURE WITH HYPERCAPNIA (2) Congestive heart failure (CHF) Code(s): I50.9 - HEART FAILURE, UNSPECIFIED Qualifiers: Heart failure type: unspecified Heart failure chronicity: acute Qualified Code(s): I50.9 - Heart failure, unspecified (3) Microcytic anemia Code(s): D50.9 - IRON DEFICIENCY ANEMIA, UNSPECIFIED (4) New onset a-fib Code(s): I48.91 - UNSPECIFIED ATRIAL FIBRILLATION (5) Pneumonia Code(s): J18.9 - PNEUMONIA, UNSPECIFIED ORGANISM Qualifiers: Pneumonia type: due to unspecified organism Laterality: bilateral Lung location: lower lobe of lung Qualified Code(s): J18.9 - Pneumonia, unspecified organism (6) Bilateral pleural effusion Code(s): J90 - PLEURAL EFFUSION, NOT ELSEWHERE CLASSIFIED
[2017-05-26 13:59] LABS: PLEURAL FLUID MESOTHELIAL 3 %
[2017-05-26 14:00] LABS: PLEURAL FLUID LYMPHOCYTES 59 %; PLEURAL FLUID MACROPHAGES 30 %; PLEURAL FLUID NEUTROPHIL 1 %
[2017-05-26] MEDS: HEPARIN INFUSION - 25,000 UNITS/500 ML INFUS.BAG IVPB SCH (20:18)
[2017-05-26 20:19] LABS: ARTERIAL BLD GAS O2 SATURATION 94.7 % (90-98.9); ARTERIAL BLOOD GAS PCO2 54.2 mmHg (35-45); ARTERIAL BLOOD GAS PO2 72.9 mmHg (68-100)
[2017-05-26 20:20] LABS: ALLENS TEST POSITIVE
[2017-05-26] MEDS: metoPROLOL SUCCINATE 25 MG TAB.SR.24H (FP) PO SCH (22:35)
[2017-05-26] MEDS: dilTIAZem HCL 30 MG TABLET (FP) PO SCH (22:35)
[2017-05-27 06:21] LABS: ANION GAP 8 (8-16); BLOOD UREA NITROGEN 39 mg/dL (7-18); CALCIUM 8.6 mg/dL (8.5-10.1); CHLORIDE 96 mmol/L (98-107); CO2 38 mmol/L (21-32); CREATININE 1.1 mg/dL (0.55-1.02); GLUCOSE,RANDOM 117 mg/dL (74-106); POTASSIUM 3.8 mmol/L (3.5-5.1); SODIUM 142 mmol/L (136-145)
[2017-05-27 06:44] LABS: HEMATOCRIT 30.1 % (32.4-45.2); HEMOGLOBIN 9.2 GM/dL (10.7-15.3); MCH 20.5 pg (25.7-33.7); MCHC 30.5 g/dl (32.0-36.0); MEAN CELL VOLUME 67.2 fl (80-96); MEAN PLT VOLUME 9.1 fl (7.5-11.1); PLATELET COUNT 173 K/MM3 (134-434); RBC 4.48 M/mm3 (3.60-5.2); WHITE BLOOD COUNT 7.7 K/mm3 (4.0-10.0)
[2017-05-27] MEDS: FUROSEMIDE 40 MG/4 ML INJECTABLE VIAL IVPUSH SCH ×2 (06:53→14:18)
[2017-05-27] MEDS: dilTIAZem HCL 30 MG TABLET (FP) PO SCH ×3 (06:53→22:09)
[2017-05-27] MEDS: POTASSIUM CHLORIDE TABS 10 MEQ TABLET.ER (FP) PO SCH ×2 (09:20→22:08)
[2017-05-27] MEDS: metoPROLOL SUCCINATE 25 MG TAB.SR.24H (FP) PO SCH ×2 (09:20→22:08)
[2017-05-27] MEDS: RANITIDINE HCL 150 MG TABLET (FP) PO SCH ×2 (09:20→22:08)
[2017-05-27] MEDS: FERROUS SO4 325 MG TABLET (FP) PO SCH ×2 (09:20→17:25)
--- NOTE | 2017-05-27 10:04 | PN ---
Progress Note, Physician Chief Complaint: No events. No overt bleeding History of Present Illness: Categorically refusing endoscopic exams to evaluate GIT for sources of bleeding. Pt's daughter is aware, per primary care team. - Current Medication List Current Medications: Active Medications Diltiazem HCl (Cardizem -) 90 mg PO TID [facility] Last Admin: 05/27/17 06:53 Dose: 90 mg Ferrous Sulfate (Feosol -) 325 mg PO BIDWM [facility] Last Admin: 05/27/17 09:20 Dose: 325 mg Furosemide (Lasix Injection -) 40 mg IVPUSH BIDLASIX [facility] Last Admin: 05/27/17 06:53 Dose: 40 mg Heparin Sodium (Porcine) (Heparin -) 1,000 unit IVPUSH PRN PRN PRN Reason: Heparin Last Admin: 05/27/17 02:56 Dose: 1,000 unit Heparin Sodium (Porcine) (Heparin -) 5,000 unit IVPUSH PRN PRN PRN Reason: Heparin Last Admin: 05/22/17 00:57 Dose: 5,000 unit Heparin Sodium/Dextrose (Heparin Infusion -) 25,000 units in 500 mls @ 20 mls/ hr IVPB TITR TRES; 1,000 UNITS/HR PRN Reason: Protocol Last Titration: 05/27/17 02:56 Dose: 950 units/hr, 19 mls/hr Metoprolol Succinate (Toprol Xl -) 25 mg PO BID [facility] Last Admin: 05/27/17 09:20 Dose: 25 mg Potassium Chloride (K-Dur -) 20 meq PO BID [facility] Last Admin: 05/27/17 09:20 Dose: 20 meq Ranitidine HCl (Zantac -) 150 mg PO BID [facility] Last Admin: 05/27/17 09:20 Dose: 150 mg - Objective Vital Signs: Vital Signs Temperature 97.9 F 05/27/17 05:00 Pulse Rate 85 05/27/17 05:00 Respiratory Rate 18 05/27/17 05:00 Blood Pressure 112/65 05/27/17 05:00 O2 Sat by Pulse Oximetry (%) 97 05/26/17 21:00 Constitutional: Yes: No Distress, Calm Eyes: Yes: Conjunctiva Clear HENT: Yes: Atraumatic Neck: Yes: Supple Cardiovascular: Yes: Regular Rate and Rhythm Respiratory: Yes: Regular Gastrointestinal: Yes: Soft. No: Distention, Melena, Rectal Bleeding, Tenderness, Vomiting Neurological: Yes: Alert, Oriented Labs: CBC, BMP 05/27/17 05:30 05/27/17 05:30 INR, PTT INR 1.13 (0.82-1.09) 05/25/17 06:00 CBCD WBC 7.7 K/mm3 (4.0-10.0) 05/27/17 05:30 RBC 4.48 M/mm3 (3.60-5.2) 05/27/17 05:30 Hgb 9.2 GM/dL (10.7-15.3) L 05/27/17 05:30 Hct 30.1 % (32.4-45.2) L 05/27/17 05:30 MCV 67.2 fl (80-96) L 05/27/17 05:30 MCHC 30.5 g/dl (32.0-36.0) L 05/27/17 05:30 RDW 28.0 % (11.6-15.6) H 05/27/17 05:30 Plt Count 173 K/MM3 (134-434) 05/27/17 05:30 MPV 9.1 fl (7.5-11.1) 05/27/17 05:30 CMP Sodium 142 mmol/L (136-145) 05/27/17 05:30 Potassium 3.8 mmol/L (3.5-5.1) 05/27/17 05:30 Chloride 96 mmol/L (98-107) L 05/27/17 05:30 Carbon Dioxide 38 mmol/L (21-32) H 05/27/17 05:30 Anion Gap 8 (8-16) 05/27/17 05:30 BUN 39 mg/dL (7-18) H 05/27/17 05:30 Creatinine 1.1 mg/dL (0.55-1.02) H 05/27/17 05:30 Creat Clearance w eGFR 42.70 (>60) 05/25/17 06:34 Calcium 8.6 mg/dL (8.5-10.1) 05/27/17 05:30 Total Bilirubin 0.7 mg/dL (0.2-1.0) D 05/25/17 06:34 AST 9 U/L (15-37) L 05/25/17 06:34 ALT 17 U/L (12-78) 05/25/17 06:34 Alkaline Phosphatase 101 U/L (45-117) 05/25/17 06:34 Total Protein 5.0 g/dl (6.4-8.2) L 05/25/17 06:34 Albumin 2.7 g/dl (3.4-5.0) L 05/25/17 06:34 Problem List - Problems (1) Microcytic hypochromic anemia Code(s): D50.9 - IRON DEFICIENCY ANEMIA, UNSPECIFIED (2) Microcytic anemia Code(s): D50.9 - IRON DEFICIENCY ANEMIA, UNSPECIFIED Assessment/Plan Micorcytic hypochromic anemia and hemoccult positive stools. No signs of overt bleeding The patient is declining EGD and colonoscopy at this time. She is aware the procedures were to evaluate GIT for bleeding. Continue PPI Risk of symptomatic anemia and overt/significant GIT bleeding while receiving chronic anticoagulation remains high.
--- NOTE | 2017-05-27 11:13 | PN ---
Progress Note (short form) - Note Progress Note: Chief Complaint: afib, chf History of Present Illness: cough improving no sob (in bed mostly) no palpitations no cp no cigs Current Medications Generic Name Dose Route Start Last Admin Trade Name Freq PRN Reason Stop Dose Admin Diltiazem HCl 90 mg 05/26/17 22:00 05/27/17 06:53 Cardizem - PO 90 mg TID TRES Administration Ferrous Sulfate 325 mg 05/23/17 17:30 05/27/17 09:20 Feosol - PO 325 mg BIDWM TRES Administration Furosemide 40 mg 05/25/17 14:00 05/27/17 06:53 Lasix Injection - IVPUSH 40 mg BIDLASIX TRES Administration Heparin Sodium (Porcine) 1,000 unit 05/21/17 15:30 05/27/17 02:56 Heparin - IVPUSH 1,000 unit PRN PRN Administration Heparin Heparin Sodium (Porcine) 5,000 unit 05/21/17 15:30 05/22/17 00:57 Heparin - IVPUSH 5,000 unit PRN PRN Administration Heparin Heparin Sodium/Dextrose 25,000 units in 500 mls @ 20 mls/hr 05/26/17 20:00 02:56 Heparin Infusion - IVPB 950 units/hr TITR TRES 19 mls/hr Protocol Titration 1,000 UNITS/HR Metoprolol Succinate 25 mg 05/26/17 22:00 05/27/17 09:20 Toprol Xl - PO 25 mg BID TRES Administration Potassium Chloride 20 meq 05/25/17 10:45 05/27/17 09:20 K-Dur - PO 20 meq BID TRES Administration Ranitidine HCl 150 mg 05/23/17 11:19 05/27/17 09:20 Zantac - PO 150 mg BID TRES Administration - Objective Vital Signs: Vital Signs Period Temp Pulse Resp BP Sys/Marino Pulse Ox Last 24 Hr 97.2 F-98.8 F 82-99 -18 100-112/52-85 97 Constitutional: No Distress, Eyes: Yes: Conjunctiva Clear Cardiovascular: Yes: Pulse Irregular, 2/6 sys murmur at apex. Respiratory: Yes: cta bl nl eff No: Rales, Rhonchi, Wheezes Gastrointestinal: Yes: Normal Bowel Sounds, Soft Extremities: Yes: Other (warm) Edema: no le edema Neurological: Yes: Alert, Oriented no jaundice diaphoresis. Labs: CBC, BMP 05/27/17 05:30 05/27/17 05:30 - ....Imaging EKG: Other (tele: rate controlled Afib ) echo 05/2017: nl lv. mild rve, nl rv fcn. mil-mod mr, sev tr, mild-mod ar. nl rvsp chest ct images and report reviewed. notable for bilateral effusions and 4.6 thoracic dilation/aneurysm. see emr for details. cxr: bl effs, no significant improvement on 05/24 cxr. Assessment/Plan 87 yo with h/o htn on norvasc, fe deficiency anemia, nsaid induced gastritis, OA , anxiety/depression and prior ureteral stent here with dry cough for a month found with evidence of CHF, rapid afib and possible URI/?pna. acute diastolic chf: -CHF may be from diastolic dysfunction in setting of rapid afib. Also with severe tr and mild rve (nl fn), though reportedly normal RV syst pressure on echo. -05/23: cont iv lasix for now. appears to be net negative with good uop and cr improving on current regimen, but weight increased. Will repeat standing weight and reassess tomorrow. - 05/24: cr stable, weight coming down, symptomatically improving. con't current regimen - 05/25: wt trend down 196 to 191 here. renal fxn stable. receiving lasix 40 iv qd. cxr 05/24 with worsening effusions +/- lower zone congestion. rales on exam-- incr lasix to 40 iv bid today. - 05/26: ongoing clinical improvement on bid lasix, stable bmp. Con't same. Also s/p thora today. - 05/27: ongoing clinical improvement on bid lasix, stable bmp. Con't same. - con't i/o's, daily weights, bmp. new diagnosis of afib, presented in rvr. Re rate control. - anterolateral st depressions when in RVR. no angina, neg troponins. outpt elective stress test for risk stratification. - HRs suboptimal here on toprol 50 bid. BPs trended down on 75 bid so changed back to 50 bid on 05/24. + h/o depression per PMD-monitor for worsening depressive sx's on toprol. - 05/25: not responding well to metoprolol alone, added diltiazem 60 TID. if bp trends down, decr dose of metoprolol (ditto if any signs of depression worsening) - 05/26: responding well to diltiazem, sbp's stable in the 110's. Will further uptitrate diltiazem to 90 tid and wean toprol to 25 bid. -05/27: rate controlled on dilt/toprol RE AC: - 05/25: CHADS-VASC = 4 (>5...first time chf here most likely sec to rapid afib) . pt would benefit from AC--however she is not a candidate for AC at the present time in light of: (a) acute on chronic (longstanding) anemia here, with prior NSAID-induced gastritis, and ongoing daily (high dose) NSAID use; (b) likely UGIB (stool occult blood +); and (c) pt refusing GI rec for rpt EGD prior to initiating AC. She also refused [place] appendage closure (Watchman device) b/c does not want any invasive procedures. Therefore, there are no effective stroke prevention options available to this pt which are safe to employ. (would not rec ASA 81 given very limited efficacy for afib stroke prevention, and hi risk of worsening NSAID-induced UGIB source.) Dr. Lackey d/w patient/family again 05/25 - est'd 4%/year risk of CVA (vs <1% if on AC), and the above options but she reiterates she will not pursue any invasive procedures and prefers to accept this stroke risk. do not recommend use of NOAC at the moment, in line with pt wishes to avoid procedures and hospitalization, given high probability of acutely worsening her anemia and/or causing severe bleeding. she states that she intends to discontinue all NSAID use (back pain tolerable). recommend ? intensive PPI (per GI) and if H/H remain stable over next 6-8 wks, and rpt stool is negative for occult blood at that time, ? can try NOAC with continued prophylactic PPI. will await GI input on this future plan. 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 routine outpatient surveillance. angela, - now resolved with diuresis, renal following.
--- NOTE | 2017-05-27 11:54 | PN ---
Progress Note (short form) - Note Progress Note: c/o non productive cough. unable to differentiate if improved since thoracentesis yesterday. did have 2 loose BM yesterday, none today. denies CP, SOB, fever, chills, N/V/C/D Current Medications Generic Name Dose Route Start Last Admin Trade Name Freq PRN Reason Stop Dose Admin Diltiazem HCl 90 mg 05/26/17 22:00 05/27/17 06:53 Cardizem - PO 90 mg TID TRES Administration Ferrous Sulfate 325 mg 05/23/17 17:30 05/27/17 09:20 Feosol - PO 325 mg BIDWM TRES Administration Furosemide 40 mg 05/25/17 14:00 05/27/17 06:53 Lasix Injection - IVPUSH 40 mg BIDLASIX TRES Administration Heparin Sodium (Porcine) 1,000 unit 05/21/17 15:30 05/27/17 02:56 Heparin - IVPUSH 1,000 unit PRN PRN Administration Heparin Heparin Sodium (Porcine) 5,000 unit 05/21/17 15:30 05/22/17 00:57 Heparin - IVPUSH 5,000 unit PRN PRN Administration Heparin Heparin Sodium/Dextrose 25,000 units in 500 mls @ 20 mls/hr 05/26/17 20:00 02:56 Heparin Infusion - IVPB 950 units/hr TITR TRES 19 mls/hr Protocol Titration 1,000 UNITS/HR Metoprolol Succinate 25 mg 05/26/17 22:00 05/27/17 09:20 Toprol Xl - PO 25 mg BID TRES Administration Potassium Chloride 20 meq 05/25/17 10:45 05/27/17 09:20 K-Dur - PO 20 meq BID TRES Administration Ranitidine HCl 150 mg 05/23/17 11:19 05/27/17 09:20 Zantac - PO 150 mg BID TRES Administration Last Vital Signs Temp Pulse Resp BP Pulse Ox 97.9 F 85 18 112/65 97 05/27/17 05:00 05/27/17 05:00 05/27/17 05:00 05/27/17 05:00 05/26/17 21:00 Intake & Output 05/24/17 05/25/17 05/26/17 05/27/17 23:59 23:59 23:59 23:59 Intake Total 1154 1020 605 Output Total 2709 7472 700 Balance -1546 -980 -95 Weight 191 lb 187 lb 6.4 oz 183 lb 9 oz General NAD CV S1 S2 RRR no murmur/rub/gallop Lungs decreased breath sounds R base, poor inspiratory effort ABdomen soft NT/ND Extremities trace pitting edema CBCD WBC 7.7 K/mm3 (4.0-10.0) 05/27/17 05:30 RBC 4.48 M/mm3 (3.60-5.2) 05/27/17 05:30 Hgb 9.2 GM/dL (10.7-15.3) L 05/27/17 05:30 Hct 30.1 % (32.4-45.2) L 05/27/17 05:30 MCV 67.2 fl (80-96) L 05/27/17 05:30 MCHC 30.5 g/dl (32.0-36.0) L 05/27/17 05:30 RDW 28.0 % (11.6-15.6) H 05/27/17 05:30 Plt Count 173 K/MM3 (134-434) 05/27/17 05:30 MPV 9.1 fl (7.5-11.1) 05/27/17 05:30 CMP Sodium 142 mmol/L (136-145) 05/27/17 05:30 Potassium 3.8 mmol/L (3.5-5.1) 05/27/17 05:30 Chloride 96 mmol/L (98-107) L 05/27/17 05:30 Carbon Dioxide 38 mmol/L (21-32) H 05/27/17 05:30 Anion Gap 8 (8-16) 05/27/17 05:30 BUN 39 mg/dL (7-18) H 05/27/17 05:30 Creatinine 1.1 mg/dL (0.55-1.02) H 05/27/17 05:30 Creat Clearance w eGFR 42.70 (>60) 05/25/17 06:34 Calcium 8.6 mg/dL (8.5-10.1) 05/27/17 05:30 Total Bilirubin 0.7 mg/dL (0.2-1.0) D 05/25/17 06:34 AST 9 U/L (15-37) L 05/25/17 06:34 ALT 17 U/L (12-78) 05/25/17 06:34 Alkaline Phosphatase 101 U/L (45-117) 05/25/17 06:34 Total Protein 5.0 g/dl (6.4-8.2) L 05/25/17 06:34 Albumin 2.7 g/dl (3.4-5.0) L 05/25/17 06:34 Assessment and Plan: 87 year old female with PMHx of HTN, renal calculi, iron deficiency anemia, who presented to the ED with one month or shortness of breath and non-productive cough 1. New onset a.fib with RVR- rate improved. noted several non significant pauses. on cardizem and toprol. will cont to titrate up cardizem and down toprol as tolerated. High APUTQ0mgie. on hep ggt. not candidate for NOAC at this time due to GI bleeding and high dose NSAID usage. plan was for EGD/ colonoscopy when pt euvolemic, however patient is now refusing. will defer to cardio about ggt. asa also not recommended 2. Iron def anemia- s/p 2 units PRBC this hospital stay. FOBT +. refusing EGD/ colonoscopy at this time. avoid NSAID use. cont Y4cilnbct. on iron supplementation. tolerating well. no indication for transfusion at this time. will need repeat iron studies in 3 months 3. Acute distolic CHF exacerbation- s/p R thoracentesis on 05/26 with 220 cc of fluid removal. clinically improved. cont lasix 40mg IV BID. can liekly transition to po in 48-72hours. 4. Acute Hypoxic and hypercapnic respiratory failure- s/p thoracentesis. improved. cont bipap prn. will need evaluation to see if requires home o2 prior to discharge 5. Hypokalemia-chronic repletion with lasix. Kcl 20meq BID. cont for now 6. DVT ppx- hep ggt. 7. only ambulating 20ft with PT. May require CARSON on discharge. pt does not seem willing to go at this time. cont with daily PT to see if improvement no longer required. Visit type - Emergency Visit Emergency Visit: Yes ED Registration Date: 05/20/17 Care time: The patient presented to the Emergency Department on the above date and was hospitalized for further evaluation of their emergent condition. - New Patient This patient is new to me today: Yes Date on this admission: 05/27/17 - Critical Care Critical Care patient: No - Discharge Referral Referred to [facility] Med [facility] No
--- NOTE | 2017-05-27 12:41 | PN ---
Progress Note, Physician History of Present Illness: pulmonary alert,feeling better,less dyspneic. pt refuses gi w/u - Current Medication List Current Medications: Active Medications Diltiazem HCl (Cardizem -) 90 mg PO TID [facility] Last Admin: 05/27/17 06:53 Dose: 90 mg Ferrous Sulfate (Feosol -) 325 mg PO BIDWM [facility] Last Admin: 05/27/17 09:20 Dose: 325 mg Furosemide (Lasix Injection -) 40 mg IVPUSH BIDLASIX [facility] Last Admin: 05/27/17 06:53 Dose: 40 mg Heparin Sodium (Porcine) (Heparin -) 1,000 unit IVPUSH PRN PRN PRN Reason: Heparin Last Admin: 05/27/17 02:56 Dose: 1,000 unit Heparin Sodium (Porcine) (Heparin -) 5,000 unit IVPUSH PRN PRN PRN Reason: Heparin Last Admin: 05/22/17 00:57 Dose: 5,000 unit Heparin Sodium/Dextrose (Heparin Infusion -) 25,000 units in 500 mls @ 20 mls/ hr IVPB TITR TRES; 1,000 UNITS/HR PRN Reason: Protocol Last Titration: 05/27/17 02:56 Dose: 950 units/hr, 19 mls/hr Metoprolol Succinate (Toprol Xl -) 25 mg PO BID [facility] Last Admin: 05/27/17 09:20 Dose: 25 mg Potassium Chloride (K-Dur -) 20 meq PO BID [facility] Last Admin: 05/27/17 09:20 Dose: 20 meq Ranitidine HCl (Zantac -) 150 mg PO BID [facility] Last Admin: 05/27/17 09:20 Dose: 150 mg - Objective Vital Signs: Vital Signs Temperature 97.9 F 05/27/17 05:00 Pulse Rate 85 05/27/17 05:00 Respiratory Rate 18 05/27/17 05:00 Blood Pressure 112/65 05/27/17 05:00 O2 Sat by Pulse Oximetry (%) 97 05/26/17 21:00 Constitutional: Yes: Well Nourished, Calm Eyes: Yes: WNL HENT: Yes: WNL Neck: Yes: WNL Cardiovascular: Yes: Pulse Irregular, S1, S2 Respiratory: Yes: Rales (bibasilar rales) Gastrointestinal: Yes: Normal Bowel Sounds, Soft Extremities: Yes: WNL Edema: Yes Labs: CBC, BMP 05/27/17 05:30 05/27/17 05:30 INR, PTT INR 1.13 (0.82-1.09) 05/25/17 06:00 Laboratory Tests 05/26/17 10:30 Pleural Fluid Source Pleural fluid Pleural Color Yellow Pleural WBC 678 Pleural RBC 1105 Pleural Neutrophils 1 Pleural Lymphocytes 59 Pleural Macrophages 30 Pleural Mesothelial 3 Pleural Total Protein 2.098 Pleural Albumin 1 Pleural LDH 84.09 Pleural Glucose 125.867 Pleural Amylase 21.133 Pleural Cholesterol < 50 Pleural Triglycerides 10 Laboratory Tests 05/26/17 19:45 ABG pH 7.40 ABG pCO2 at Pt Temp 54.2 H ABG pO2 at Pt Temp 72.9 ABG HCO3 32.5 H ABG O2 Sat (Measured) 94.7 Oxygen Flow Rate 3lpm Problem List - Problems (1) Acute respiratory failure with hypoxia and hypercapnia Code(s): J96.01 - ACUTE RESPIRATORY FAILURE WITH HYPOXIA; J96.02 - ACUTE RESPIRATORY FAILURE WITH HYPERCAPNIA (2) Congestive heart failure (CHF) Code(s): I50.9 - HEART FAILURE, UNSPECIFIED Qualifiers: Qualified Code(s): I50.9 - Heart failure, unspecified (3) Microcytic anemia Code(s): D50.9 - IRON DEFICIENCY ANEMIA, UNSPECIFIED (4) New onset a-fib Code(s): I48.91 - UNSPECIFIED ATRIAL FIBRILLATION (5) Pneumonia Code(s): J18.9 - PNEUMONIA, UNSPECIFIED ORGANISM Qualifiers: Qualified Code(s): J18.1 - Lobar pneumonia, unspecified organism (6) Bilateral pleural effusion Code(s): J90 - PLEURAL EFFUSION, NOT ELSEWHERE CLASSIFIED Assessment/Plan IMP ACUTE HYPOXEMIC/HYPERCAPNEIC RESPIRATORY FAILURE IMPROVINg CHF CLINICALLY IMPROVING BILATERAL PLEURAL EFFUSIONS TRANSUDATE RAPID AFIB DIASTOLIC HF ANEMIA NATHALIE PLAN LASIX AC BIPAP PRN O2 NORMAL TRANSFUSION THRESHOLD MONITOR LYTES,RENAL FUNCTION MONITOR H+H PT REFUSES GI W/U DR MAR Problem List - Problems (1) Acute respiratory failure with hypoxia and hypercapnia Code(s): J96.01 - ACUTE RESPIRATORY FAILURE WITH HYPOXIA; J96.02 - ACUTE RESPIRATORY FAILURE WITH HYPERCAPNIA (2) Congestive heart failure (CHF) Code(s): I50.9 - HEART FAILURE, UNSPECIFIED Qualifiers: Heart failure type: unspecified Heart failure chronicity: acute Qualified Code(s): I50.9 - Heart failure, unspecified (3) Microcytic anemia Code(s): D50.9 - IRON DEFICIENCY ANEMIA, UNSPECIFIED (4) New onset a-fib Code(s): I48.91 - UNSPECIFIED ATRIAL FIBRILLATION (5) Pneumonia Code(s): J18.9 - PNEUMONIA, UNSPECIFIED ORGANISM Qualifiers: Pneumonia type: due to unspecified organism Laterality: bilateral Lung location: lower lobe of lung Qualified Code(s): J18.9 - Pneumonia, unspecified organism (6) Bilateral pleural effusion Code(s): J90 - PLEURAL EFFUSION, NOT ELSEWHERE CLASSIFIED
--- NOTE | 2017-05-27 14:37 | PATH ---
Cytology Non-Gynecological Report Patient Name: DONI ECHEVERRIA [facility]. Rec. #: [id number] /Age/Gender: 1930 (Age: 87) / F Account: [id number] Location: [facility] Taken: 05/26/2017 Received: 05/26/2017 Reported: 05/27/2017 Physicians: Jovita Anderson M.D. Alysha Koorji [facility] Emir Ware M.D. Specimen(s) Received A: PLEURAL FLUID B: PLEURAL FLUID Clinical History Pleural effusion, congestive heart failure, cough Final Diagnosis A & B. PLEURAL FLUID, RIGHT, THORACENTESIS: SATISFACTORY FOR EVALUATION NO MALIGNANT CELLS IDENTIFIED. MESOTHELIAL CELLS AND SCATTERED LYMPHOCYTES PRESENT. Electronically Signed Gisela Roberts M.D. Gross Description A. Approximately 50 cc of yellow fluid received fixed in 50% alcohol. Two cytofunnels and one cellblock prepared. B. Approximately 150 cc of yellow fluid received fresh. Two cytofunnels and one cellblock prepared.
--- NOTE | 2017-05-27 14:38 | PN ---
Progress Note (short form) - Note Progress Note: DOAC, as per cardiology, may be tried while maintaining very close follow up and monitoring for significant GI bleeding/blood loss. Problem List - Problems (1) Microcytic hypochromic anemia Code(s): D50.9 - IRON DEFICIENCY ANEMIA, UNSPECIFIED (2) Microcytic anemia Code(s): D50.9 - IRON DEFICIENCY ANEMIA, UNSPECIFIED
--- NOTE | 2017-05-27 16:34 | PN ---
Progress Note (short form) - Note Progress Note: Renal Follow up for NATHALIE Pt seen and examined at the bedside sleeping but arouseable no acute complaints no sob, chest pain, abd pain no N/V/D Vital Signs Temperature 97.8 F 05/27/17 14:16 Pulse Rate 91 H 05/27/17 14:16 Respiratory Rate 16 05/27/17 14:16 Blood Pressure 100/61 05/27/17 14:16 O2 Sat by Pulse Oximetry (%) 95 05/27/17 09:00 Intake & Output 05/24/17 05/25/17 05/26/17 05/27/17 23:59 23:59 23:59 23:59 Intake Total 1154 1020 1005 Output Total 2700 2000 2300 Balance -1131 -760 -9297 Weight 86.636 kg 85.003 kg 83.263 kg NAD awake and alert Dec BS at lung bases RRR soft NT/ND No LE edema CBC, BMP 05/27/17 05:30 05/27/17 05:30 Current Medications Diltiazem HCl (Cardizem -) 90 mg PO TID TRES Last Admin: 05/27/17 14:18 Dose: 90 mg Ferrous Sulfate (Feosol -) 325 mg PO BIDWM TRES Last Admin: 05/27/17 09:20 Dose: 325 mg Furosemide (Lasix Injection -) 40 mg IVPUSH BIDLASIX TRES Last Admin: 05/27/17 14:18 Dose: 40 mg Heparin Sodium (Porcine) (Heparin -) 1,000 unit IVPUSH PRN PRN PRN Reason: Heparin Last Admin: 05/27/17 02:56 Dose: 1,000 unit Heparin Sodium (Porcine) (Heparin -) 5,000 unit IVPUSH PRN PRN PRN Reason: Heparin Last Admin: 05/22/17 00:57 Dose: 5,000 unit Heparin Sodium/Dextrose (Heparin Infusion -) 25,000 units in 500 mls @ 20 mls/ hr IVPB TITR TRES; 1,000 UNITS/HR PRN Reason: Protocol Last Titration: 05/27/17 02:56 Dose: 950 units/hr, 19 mls/hr Metoprolol Succinate (Toprol Xl -) 25 mg PO BID [facility] Last Admin: 05/27/17 09:20 Dose: 25 mg Potassium Chloride (K-Dur -) 20 meq PO BID [facility] Last Admin: 05/27/17 09:20 Dose: 20 meq Ranitidine HCl (Zantac -) 150 mg PO BID [facility] Last Admin: 05/27/17 09:20 Dose: 150 mg ASSESSMENT AND PLAN: 87 year old woman with PMhx of Hypertension, Urethral stenting (? unknown if pt had stones) who presented with complaints of cough and admitted for HF and found tos have worsening renal function as inpatient. #Acute Renal Failure in setting of Mild fluid overload/pleural effusions Renal function is improved and stable high BUN/Cr ratio likely due to mild intravascular volume depletion in setting of active diuresis can continue Lasix as needed to obtain evolemia trend BUN/Cr and electrolytes would avoid NSAIDs and IV contrast as renal function not yet settled Will sign office case at this time Thank you for allowing us to take part in the care of this patient please call wit any questions or concerns Chano Raman DO
[2017-05-27] MEDS: HEPARIN INFUSION - 25,000 UNITS/500 ML INFUS.BAG IVPB SCH (22:12)
[2017-05-28] MEDS ORDERED: guaiFENesin 200 MG/10 ML 10 ML UNIT-DOSE CUPS PO ONE (04:15)
[2017-05-28] MEDS: FUROSEMIDE 40 MG/4 ML INJECTABLE VIAL IVPUSH SCH ×2 (06:01→13:27)
[2017-05-28] MEDS: dilTIAZem HCL 30 MG TABLET (FP) PO SCH ×3 (06:01→23:51)
[2017-05-28 06:52] LABS: BASO % 0.2 % (0-2.0); EOS % 2.8 % (0-4.5); HEMATOCRIT 28.7 % (32.4-45.2); HEMOGLOBIN 8.9 GM/dL (10.7-15.3); LYMPH % 14.3 % (8-40); MCH 20.6 pg (25.7-33.7); MCHC 30.8 g/dl (32.0-36.0); MEAN CELL VOLUME 66.7 fl (80-96); MONO % 12.9 % (3.8-10.2); NEUT % 69.8 % (42.8-82.8); PLATELET COUNT 151 K/MM3 (134-434); RBC 4.31 M/mm3 (3.60-5.2); RDW 28.6 % (11.6-15.6); WHITE BLOOD COUNT 9.3 K/mm3 (4.0-10.0)
[2017-05-28 07:39] LABS: ANION GAP 6 (8-16); BLOOD UREA NITROGEN 36 mg/dL (7-18); CALCIUM 8.2 mg/dL (8.5-10.1); CHLORIDE 96 mmol/L (98-107); CO2 37 mmol/L (21-32); CREATININE 1.1 mg/dL (0.55-1.02); GLUCOSE,RANDOM 121 mg/dL (74-106); MAGNESIUM 2.1 mg/dL (1.8-2.4); POTASSIUM 4.1 mmol/L (3.5-5.1); SODIUM 139 mmol/L (136-145)
[2017-05-28 07:42] LABS: ADD RBC MORPHOLOGY YES
[2017-05-28] MEDS: FERROUS SO4 325 MG TABLET (FP) PO SCH ×2 (08:06→17:56)
[2017-05-28] MEDS: POTASSIUM CHLORIDE TABS 10 MEQ TABLET.ER (FP) PO SCH ×2 (10:11→22:33)
[2017-05-28] MEDS: RANITIDINE HCL 150 MG TABLET (FP) PO SCH ×2 (10:11→22:33)
[2017-05-28] MEDS: metoPROLOL SUCCINATE 25 MG TAB.SR.24H (FP) PO SCH ×2 (10:11→22:52)
[2017-05-28 10:23] LABS: ANISOCYTOSIS 2+; MACROCYTOSIS 1+; OVALOCYTE 1+; TARGET CELLS 1+
[2017-05-28 10:45] LABS: PLATELET ESTIMATE ADEQUATE
--- NOTE | 2017-05-28 11:08 | PN ---
Physical Exam: SUBJECTIVE: Patient seen and examined at the bedside. Sitting in chair, in no acute distress. OBJECTIVE: s/p thora Vital Signs Period Temp Pulse Resp BP Sys/Marino Pulse Ox Last 24 Hr 97.8 F-99 F 81-91 16-18 99-110/51-64 94 GENERAL: The patient is awake, alert, and fully oriented, in no acute distress. HEAD: Normal with no signs of trauma. EYES: PERRL, extraocular movements intact, sclera anicteric, conjunctiva clear. No ptosis. ENT: Ears normal, nares patent, oropharynx clear without exudates, moist mucous membranes. NECK: Trachea midline, full range of motion, supple. LUNGS: + crackles on right mid and lower lobe, left lung dim./clear HEART: irregular ABDOMEN: Soft, nontender, nondistended, normoactive bowel sounds, no guarding, NEUROLOGICAL: Normal speech, gait not observed. PSYCH: Normal mood, normal affect. Laboratory Results - last 24 hr 05/28/17 05/28/17 05/28/17 05:35 05:35 09:10 WBC 9.3 RBC 4.31 Hgb 8.9 L Hct 28.7 L MCV 66.7 L MCH 20.6 L MCHC 30.8 L RDW 28.6 H Plt Count 151 MPV 9.0 Neutrophils % 69.8 Lymphocytes % 14.3 D Monocytes % 12.9 H Eosinophils % 2.8 D Basophils % 0.2 Hypochromia 2+ Platelet Estimate Adequate Polychromasia 0 Poikilocytosis 1+ Anisocytosis 2+ Microcytosis 2+ Macrocytosis 1+ Target Cells 1+ Ovalocytes 1+ Stomatocytes 1+ PTT (Actin FS) 75.6 H Sodium 139 Potassium 4.1 Chloride 96 L Carbon Dioxide 37 H Anion Gap 6 L BUN 36 H Creatinine 1.1 H Random Glucose 121 H Calcium 8.2 L Magnesium 2.1 Active Medications Generic Name Dose Route Start Last Admin Trade Name Freq PRN Reason Stop Dose Admin Diltiazem HCl 90 mg 05/26/17 22:00 05/28/17 06:01 Cardizem - PO 90 mg TID TRES Administration Ferrous Sulfate 325 mg 05/23/17 17:30 05/28/17 08:06 Feosol - PO 325 mg BIDWM TRES Administration Furosemide 40 mg 05/25/17 14:00 05/28/17 06:01 Lasix Injection - IVPUSH 40 mg BIDLASIX TRES Administration Heparin Sodium (Porcine) 1,000 unit 05/21/17 15:30 05/27/17 02:56 Heparin - IVPUSH 1,000 unit PRN PRN Administration Heparin Heparin Sodium (Porcine) 5,000 unit 05/21/17 15:30 05/22/17 00:57 Heparin - IVPUSH 5,000 unit PRN PRN Administration Heparin Heparin Sodium/Dextrose 25,000 units in 500 mls @ 20 mls/hr 05/26/17 20:00 22:12 Heparin Infusion - IVPB 950 units/hr TITR TRES 19 mls/hr Protocol Administration 1,000 UNITS/HR Metoprolol Succinate 25 mg 05/26/17 22:00 05/28/17 10:11 Toprol Xl - PO 25 mg BID TRES Administration Potassium Chloride 20 meq 05/25/17 10:45 05/28/17 10:11 K-Dur - PO 20 meq BID TRES Administration Ranitidine HCl 150 mg 05/23/17 11:19 05/28/17 10:11 Zantac - PO 150 mg BID TRES Administration ASSESSMENT/PLAN: Patient is a 87 year old female with a significant past medical history of hypertension, renal calcili and iron deficiency anemia. Patient lives at home with her son and was brought in by her family afterr she was noted to have shortness of breath x 1 month with a non productive cough. Card: New onset atrial fibrillation with RVR, now controlled On Metoprol xl 25mg BID, Cardizem 90mg TID On heparin drip Not candidate at this time for NOAC due to hx of GI bleed and chronic NSAID use at home Patient was being evaluated by GI for a possible EGD and colonoscopy but pt refusing workup Will continue the heparin drip inpatient Discussed with cardiology, pt to follow up outpatient for for assured stability of hmg/hct for a few weeks and have negative occult blood in stools prior to starting on anticoag. Protonix 40mg daily should continue as outpatient Acute on diatolic heart failure Patient s/p right thoracentesis on 05/26/17 with 220 cc of fluid removed Breathing is better, on supplemental oxygen On Lasix 40mg IV BID Weight improving with diuretics Daily weights, monitor output Pulmonary: Hypoxia/hypercapnic respiratory failure On bipap s/p thora. Pulmonary following Heme: Iron def anemia s/p 2 unit of prbc hmg/hct stable Monitor daily On iron supplementation Refusing GI workup. F.E.N. Fluids: PO adequate Electrolytes: monitor Nutrition: low salt Prophy: Heparin drip, Protonix Full code.
--- NOTE | 2017-05-28 11:08 | PN ---
Progress Note (short form) - Note Progress Note: Chief Complaint: afib, chf History of Present Illness: cough improved no sob (in bed mostly) no palpitations no cp no cigs Current Medications Generic Name Dose Route Start Last Admin Trade Name Freq PRN Reason Stop Dose Admin Diltiazem HCl 90 mg 05/26/17 22:00 05/28/17 06:01 Cardizem - PO 90 mg TID TRES Administration Ferrous Sulfate 325 mg 05/23/17 17:30 05/28/17 08:06 Feosol - PO 325 mg BIDWM TRES Administration Furosemide 40 mg 05/25/17 14:00 05/28/17 06:01 Lasix Injection - IVPUSH 40 mg BIDLASIX TRES Administration Heparin Sodium (Porcine) 1,000 unit 05/21/17 15:30 05/27/17 02:56 Heparin - IVPUSH 1,000 unit PRN PRN Administration Heparin Heparin Sodium (Porcine) 5,000 unit 05/21/17 15:30 05/22/17 00:57 Heparin - IVPUSH 5,000 unit PRN PRN Administration Heparin Heparin Sodium/Dextrose 25,000 units in 500 mls @ 20 mls/hr 05/26/17 20:00 22:12 Heparin Infusion - IVPB 950 units/hr TITR TRES 19 mls/hr Protocol Administration 1,000 UNITS/HR Metoprolol Succinate 25 mg 05/26/17 22:00 05/28/17 10:11 Toprol Xl - PO 25 mg BID TRES Administration Potassium Chloride 20 meq 05/25/17 10:45 05/28/17 10:11 K-Dur - PO 20 meq BID TRES Administration Ranitidine HCl 150 mg 05/23/17 11:19 05/28/17 10:11 Zantac - PO 150 mg BID TRES Administration - Objective Vital Signs: Vital Signs Period Temp Pulse Resp BP Sys/Marino Pulse Ox Last 24 Hr 97.8 F-99 F 81-91 16-18 99-110/51-64 94 Constitutional: No Distress, Eyes: Yes: Conjunctiva Clear Cardiovascular: Yes: Pulse Irregular, 2/6 sys murmur at apex. Respiratory: Yes: cta bl nl eff No: Rales, Rhonchi, Wheezes Gastrointestinal: Yes: Normal Bowel Sounds, Soft Extremities: Yes: Other (warm) Edema: no le edema Neurological: Yes: Alert, Oriented no jaundice diaphoresis. Labs: CBC, BMP 05/28/17 05:35 05/28/17 05:35 - ....Imaging EKG: Other (tele: rate controlled Afib ) echo 05/2017: nl lv. mild rve, nl rv fcn. mil-mod mr, sev tr, mild-mod ar. nl rvsp chest ct images and report reviewed. notable for bilateral effusions and 4.6 thoracic dilation/aneurysm. see emr for details. cxr: bl effs, no significant improvement on 05/24 cxr. Assessment/Plan 87 yo with h/o htn on norvasc, fe deficiency anemia, nsaid induced gastritis, OA , anxiety/depression and prior ureteral stent here with dry cough for a month found with evidence of CHF, rapid afib and possible URI/?pna. acute diastolic chf: -CHF may be from diastolic dysfunction in setting of rapid afib. Also with severe tr and mild rve (nl fn), though reportedly normal RV syst pressure on echo. -05/23: cont iv lasix for now. appears to be net negative with good uop and cr improving on current regimen, but weight increased. Will repeat standing weight and reassess tomorrow. - 05/24: cr stable, weight coming down, symptomatically improving. con't current regimen - 05/25: wt trend down 196 to 191 here. renal fxn stable. receiving lasix 40 iv qd. cxr 05/24 with worsening effusions +/- lower zone congestion. rales on exam-- incr lasix to 40 iv bid today. - 05/26: ongoing clinical improvement on bid lasix, stable bmp. Con't same. Also s/p thora today. - 05/27-: ongoing clinical improvement on bid lasix, wt down, stable bmp. Con' t same. - con't i/o's, daily weights, bmp. new diagnosis of afib, presented in rvr. Re rate control. - anterolateral st depressions when in RVR. no angina, neg troponins. outpt elective stress test for risk stratification. - HRs suboptimal here on toprol 50 bid. BPs trended down on 75 bid so changed back to 50 bid on 05/24. + h/o depression per PMD-monitor for worsening depressive sx's on toprol. - 05/25: not responding well to metoprolol alone, added diltiazem 60 TID. if bp trends down, decr dose of metoprolol (ditto if any signs of depression worsening) - 05/26: responding well to diltiazem, sbp's stable in the 110's. Will further uptitrate diltiazem to 90 tid and wean toprol to 25 bid. -05/27-15: rate controlled on dilt/toprol RE AC: - 05/25: CHADS-VASC = 4 (>5...first time chf here most likely sec to rapid afib) . pt would benefit from AC--however she is not a candidate for AC at the present time in light of: (a) acute on chronic (longstanding) anemia here, with prior NSAID-induced gastritis, and ongoing daily (high dose) NSAID use; (b) likely UGIB (stool occult blood +); and (c) pt refusing GI rec for rpt EGD prior to initiating AC. She also refused LA appendage closure (Watchman device) b/c does not want any invasive procedures. Therefore, there are no effective stroke prevention options available to this pt which are safe to employ. (would not rec ASA 81 given very limited efficacy for afib stroke prevention, and hi risk of worsening NSAID-induced UGIB source.) Dr. Lackey d/w patient/family again 05/25 - est'd 4%/year risk of CVA (vs <1% if on AC), and the above options but she reiterates she will not pursue any invasive procedures and prefers to accept this stroke risk. do not recommend use of NOAC at the moment, in line with pt wishes to avoid procedures and hospitalization, given high probability of acutely worsening her anemia and/or causing severe bleeding. she states that she intends to discontinue all NSAID use (back pain tolerable). recommend ? intensive PPI (per GI) and if H/H remain stable over next 6-8 wks, and rpt stool is negative for occult blood at that time, ? can try NOAC with continued prophylactic PPI. 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 routine outpatient surveillance. angela, - now resolved with diuresis, renal following.
--- NOTE | 2017-05-28 13:12 | PN ---
Progress Note (short form) - Note Progress Note: Appears comfortable on NC O2. Cough is improving. No CP or SOB. Intake & Output 05/25/17 05/26/17 05/27/17 05/28/17 23:59 23:59 23:59 23:59 Intake Total 1154 1020 1243 818 Output Total 2700 2000 2300 1900 Balance -1546 -980 -1057 -1082 Weight 191 lb 187 lb 6.4 oz 183 lb 9 oz 180 lb 6 oz Last Vital Signs Temp Pulse Resp BP Pulse Ox 98.1 F 63 18 107/62 96 05/28/17 05:00 05/28/17 11:09 05/28/17 05:00 05/28/17 05:00 05/28/17 11:09 Active Medications Diltiazem HCl (Cardizem -) 90 mg PO TID [facility] Last Admin: 05/28/17 06:01 Dose: 90 mg Ferrous Sulfate (Feosol -) 325 mg PO BIDWM [facility] Last Admin: 05/28/17 08:06 Dose: 325 mg Furosemide (Lasix Injection -) 40 mg IVPUSH BIDLASIX [facility] Last Admin: 05/28/17 06:01 Dose: 40 mg Heparin Sodium (Porcine) (Heparin -) 1,000 unit IVPUSH PRN PRN PRN Reason: Heparin Last Admin: 05/27/17 02:56 Dose: 1,000 unit Heparin Sodium (Porcine) (Heparin -) 5,000 unit IVPUSH PRN PRN PRN Reason: Heparin Last Admin: 05/22/17 00:57 Dose: 5,000 unit Heparin Sodium/Dextrose (Heparin Infusion -) 25,000 units in 500 mls @ 20 mls/ hr IVPB TITR TRES; 1,000 UNITS/HR PRN Reason: Protocol Last Admin: 05/27/17 22:12 Dose: 950 units/hr, 19 mls/hr Metoprolol Succinate (Toprol Xl -) 25 mg PO BID [facility] Last Admin: 05/28/17 10:11 Dose: 25 mg Potassium Chloride (K-Dur -) 20 meq PO BID [facility] Last Admin: 05/28/17 10:11 Dose: 20 meq Ranitidine HCl (Zantac -) 150 mg PO BID [facility] Last Admin: 05/28/17 10:11 Dose: 150 mg Constitutional: Yes: NAD Eyes: Yes: WNL HENT: Yes: WNL Neck: Yes: WNL Cardiovascular: Yes: Pulse Irregular, S1, S2 Respiratory: Yes: bibasilar rhonchi Gastrointestinal: Yes: Normal Bowel Sounds, Soft Extremities: Yes: WNL Edema: Yes Labs: Laboratory Results - last 24 hr 05/28/17 05/28/17 05/28/17 05:35 05:35 09:10 WBC 9.3 RBC 4.31 Hgb 8.9 L Hct 28.7 L MCV 66.7 L MCH 20.6 L MCHC 30.8 L RDW 28.6 H Plt Count 151 MPV 9.0 Neutrophils % 69.8 Lymphocytes % 14.3 D Monocytes % 12.9 H Eosinophils % 2.8 D Basophils % 0.2 Hypochromia 2+ Platelet Estimate Adequate Polychromasia 0 Poikilocytosis 1+ Anisocytosis 2+ Microcytosis 2+ Macrocytosis 1+ Target Cells 1+ Ovalocytes 1+ Stomatocytes 1+ PTT (Actin FS) 75.6 H Sodium 139 Potassium 4.1 Chloride 96 L Carbon Dioxide 37 H Anion Gap 6 L BUN 36 H Creatinine 1.1 H Random Glucose 121 H Calcium 8.2 L Magnesium 2.1 Problem List - Problems (1) Acute respiratory failure with hypoxia and hypercapnia Code(s): J96.01 - ACUTE RESPIRATORY FAILURE WITH HYPOXIA; J96.02 - ACUTE RESPIRATORY FAILURE WITH HYPERCAPNIA (2) Congestive heart failure (CHF) Code(s): I50.9 - HEART FAILURE, UNSPECIFIED Qualifiers: Qualified Code(s): I50.9 - Heart failure, unspecified (3) Microcytic anemia Code(s): D50.9 - IRON DEFICIENCY ANEMIA, UNSPECIFIED (4) New onset a-fib Code(s): I48.91 - UNSPECIFIED ATRIAL FIBRILLATION (5) Pneumonia Code(s): J18.9 - PNEUMONIA, UNSPECIFIED ORGANISM Qualifiers: Qualified Code(s): J18.1 - Lobar pneumonia, unspecified organism (6) Bilateral pleural effusion Code(s): J90 - PLEURAL EFFUSION, NOT ELSEWHERE CLASSIFIED Assessment/Plan IMP ACUTE HYPOXEMIC/HYPERCAPNEIC RESPIRATORY FAILURE IMPROVING CHF CLINICALLY IMPROVING BILATERAL PLEURAL EFFUSIONS TRANSUDATE RAPID AFIB DIASTOLIC HF ANEMIA NATHALIE PLAN LASIX AC NIPPV PRN O2 NORMAL TRANSFUSION THRESHOLD MONITOR H+H PT REFUSES GI W/U Dr Pedersen
--- NOTE | 2017-05-28 13:43 | PN ---
Progress Note, Physician Chief Complaint: No events. No overt bleeding reported. Hgb stable. Not interested in discussing GI work up. History of Present Illness: Categorically refusing endoscopic exams to evaluate GIT for sources of bleeding. Pt's daughter is aware, per primary care team. - Current Medication List Current Medications: Active Medications Diltiazem HCl (Cardizem -) 90 mg PO TID [facility] Last Admin: 05/28/17 13:26 Dose: 90 mg Ferrous Sulfate (Feosol -) 325 mg PO BIDWM [facility] Last Admin: 05/28/17 08:06 Dose: 325 mg Furosemide (Lasix Injection -) 40 mg IVPUSH BIDLASIX [facility] Last Admin: 05/28/17 13:27 Dose: 40 mg Heparin Sodium (Porcine) (Heparin -) 1,000 unit IVPUSH PRN PRN PRN Reason: Heparin Last Admin: 05/27/17 02:56 Dose: 1,000 unit Heparin Sodium (Porcine) (Heparin -) 5,000 unit IVPUSH PRN PRN PRN Reason: Heparin Last Admin: 05/22/17 00:57 Dose: 5,000 unit Heparin Sodium/Dextrose (Heparin Infusion -) 25,000 units in 500 mls @ 20 mls/ hr IVPB TITR TRES; 1,000 UNITS/HR PRN Reason: Protocol Last Admin: 05/27/17 22:12 Dose: 950 units/hr, 19 mls/hr Metoprolol Succinate (Toprol Xl -) 25 mg PO BID [facility] Last Admin: 05/28/17 10:11 Dose: 25 mg Potassium Chloride (K-Dur -) 20 meq PO BID [facility] Last Admin: 05/28/17 10:11 Dose: 20 meq Ranitidine HCl (Zantac -) 150 mg PO BID [facility] Last Admin: 05/28/17 10:11 Dose: 150 mg - Objective Vital Signs: Vital Signs Temperature 98.1 F 05/28/17 05:00 Pulse Rate 63 05/28/17 11:09 Respiratory Rate 18 05/28/17 05:00 Blood Pressure 107/62 05/28/17 05:00 O2 Sat by Pulse Oximetry (%) 96 05/28/17 11:09 Constitutional: Yes: No Distress, Calm Eyes: Yes: Conjunctiva Clear Gastrointestinal: Yes: Soft. No: Melena, Rectal Bleeding, Tenderness, Vomiting Neurological: Yes: Alert Psychiatric: Yes: Other (flat effect) Labs: CBC, BMP 05/28/17 05:35 05/28/17 05:35 INR, PTT INR 1.13 (0.82-1.09) 05/25/17 06:00 Abnormal Lab Results 05/28/17 05/28/17 05/28/17 05:35 05:35 09:10 Hgb 8.9 L Hct 28.7 L MCV 66.7 L MCH 20.6 L MCHC 30.8 L RDW 28.6 H Monocytes % 12.9 H PTT (Actin FS) 75.6 H Chloride 96 L Carbon Dioxide 37 H Anion Gap 6 L BUN 36 H Creatinine 1.1 H Random Glucose 121 H Calcium 8.2 L Problem List - Problems (1) Microcytic hypochromic anemia Code(s): D50.9 - IRON DEFICIENCY ANEMIA, UNSPECIFIED (2) Microcytic anemia Code(s): D50.9 - IRON DEFICIENCY ANEMIA, UNSPECIFIED Assessment/Plan Micorcytic hypochromic anemia and hemoccult positive stools. No signs of overt bleeding. The patient is declining EGD and colonoscopy at this time. She is aware the procedures were to evaluate GIT for bleeding. Risk of recurrent symptomatic anemia and, or overt/significant GIT bleed while receiving chronic anticoagulation remains high. If obsoletely essential to anticoagulate, DOAC can be tried with close monitoring. Continue PPI, Add Iron, miralax PRN
[2017-05-28] MEDS ORDERED: POLYETHYLENE GLYCOL 3350 119 GM BTL PO PRN (13:54)
[2017-05-28] MEDS: HEPARIN INFUSION - 25,000 UNITS/500 ML INFUS.BAG IVPB SCH (22:33)
[2017-05-29] MEDS ORDERED: HEPARIN NA (PORCINE) 5,000 UNITS/ML 1ML VIAL IVPUSH PRN (00:51)
[2017-05-29] MEDS: FUROSEMIDE 40 MG/4 ML INJECTABLE VIAL IVPUSH SCH ×2 (05:53→16:07)
[2017-05-29] MEDS: dilTIAZem HCL 30 MG TABLET (FP) PO SCH ×3 (05:53→22:43)
[2017-05-29] MEDS ORDERED: PT OWN MED DRAWER 7, Y5N ONE (09:39)
[2017-05-29] MEDS: POTASSIUM CHLORIDE TABS 10 MEQ TABLET.ER (FP) PO SCH ×2 (09:43→22:43)
[2017-05-29] MEDS: metoPROLOL SUCCINATE 25 MG TAB.SR.24H (FP) PO SCH ×2 (09:43→22:43)
[2017-05-29] MEDS: RANITIDINE HCL 150 MG TABLET (FP) PO SCH ×2 (09:43→22:43)
[2017-05-29] MEDS: FERROUS SO4 325 MG TABLET (FP) PO SCH ×2 (09:43→21:35)
[2017-05-29] MEDS: HEPARIN INFUSION - 25,000 UNITS/500 ML INFUS.BAG IVPB SCH ×2 (09:44→22:40)
--- NOTE | 2017-05-29 11:01 | PN ---
Progress Note (short form) - Note Progress Note: Chief Complaint: afib, chf History of Present Illness: cough improved no sob (in bed mostly) no palpitations no cp no cigs Current Medications Generic Name Dose Route Start Last Admin Trade Name Freq PRN Reason Stop Dose Admin Diltiazem HCl 90 mg 05/26/17 22:00 05/29/17 05:53 Cardizem - PO 90 mg TID TRES Administration Ferrous Sulfate 325 mg 05/23/17 17:30 05/29/17 09:43 Feosol - PO 325 mg BIDWM TRES Administration Furosemide 40 mg 05/25/17 14:00 05/29/17 05:53 Lasix Injection - IVPUSH 40 mg BIDLASIX TRES Administration Heparin Sodium (Porcine) 1,000 unit 05/29/17 00:51 Heparin - IVPUSH PRN PRN Heparin Heparin Sodium (Porcine) 5,000 unit 05/29/17 00:51 Heparin - IVPUSH PRN PRN Heparin Heparin Sodium/Dextrose 25,000 units in 500 mls @ 20 mls/hr 05/26/17 20:00 09:44 Heparin Infusion - IVPB 950 units/hr TITR TRES 19 mls/hr Protocol Administration 1,000 UNITS/HR Metoprolol Succinate 25 mg 05/26/17 22:00 05/29/17 09:43 Toprol Xl - PO 25 mg BID TRES Administration Polyethylene Glycol 17 gm 05/28/17 13:54 Miralax (For Daily Use) - PO BID PRN CONSTIPATION Potassium Chloride 20 meq 05/25/17 10:45 05/29/17 09:43 K-Dur - PO 20 meq BID TRES Administration Ranitidine HCl 150 mg 05/23/17 11:19 05/29/17 09:43 Zantac - PO 150 mg BID TRES Administration - Objective Vital Signs: Vital Signs Period Temp Pulse Resp BP Sys/Marino Pulse Ox Last 24 Hr 98 F-98.6 F 63-110 18-20 86-112/47-68 95-96 Constitutional: No Distress, Eyes: Yes: Conjunctiva Clear Cardiovascular: Yes: Pulse Irregular, 2/6 sys murmur at apex. Respiratory: Yes: cta bl nl eff No: Rales, Rhonchi, Wheezes Gastrointestinal: Yes: Normal Bowel Sounds, Soft Extremities: Yes: Other (warm) Edema: no le edema Neurological: Yes: Alert, Oriented no jaundice diaphoresis. Labs: CBC, BMP 05/28/17 05:35 05/28/17 05:35 - ....Imaging EKG: Other (tele: rate controlled Afib ) echo 05/2017: nl lv. mild rve, nl rv fcn. mil-mod mr, sev tr, mild-mod ar. nl rvsp chest ct images and report reviewed. notable for bilateral effusions and 4.6 thoracic dilation/aneurysm. see emr for details. cxr: bl effs, no significant improvement on 05/24 cxr. Assessment/Plan 87 yo with h/o htn on norvasc, fe deficiency anemia, nsaid induced gastritis, OA , anxiety/depression and prior ureteral stent here with dry cough for a month found with evidence of CHF, rapid afib and possible URI/?pna. acute diastolic chf: -CHF may be from diastolic dysfunction in setting of rapid afib. Also with severe tr and mild rve (nl fn), though reportedly normal RV syst pressure on echo. -05/23: cont iv lasix for now. appears to be net negative with good uop and cr improving on current regimen, but weight increased. Will repeat standing weight and reassess tomorrow. - 05/24: cr stable, weight coming down, symptomatically improving. con't current regimen - 05/25: wt trend down 196 to 191 here. renal fxn stable. receiving lasix 40 iv qd. cxr 05/24 with worsening effusions +/- lower zone congestion. rales on exam-- incr lasix to 40 iv bid today. - 05/26: ongoing clinical improvement on bid lasix, stable bmp. Con't same. Also s/p thora today. - 05/27-: ongoing clinical improvement on bid lasix, wt down, stable bmp. Con' t same. - con't i/o's, daily weights, bmp. new diagnosis of afib, presented in rvr. Re rate control. - anterolateral st depressions when in RVR. no angina, neg troponins. outpt elective stress test for risk stratification. - HRs suboptimal here on toprol 50 bid. BPs trended down on 75 bid so changed back to 50 bid on 05/24. + h/o depression per PMD-monitor for worsening depressive sx's on toprol. - 05/25: not responding well to metoprolol alone, added diltiazem 60 TID. if bp trends down, decr dose of metoprolol (ditto if any signs of depression worsening) - 05/26: responding well to diltiazem, sbp's stable in the 110's. Will further uptitrate diltiazem to 90 tid and wean toprol to 25 bid. -05/27-: rate controlled on dilt/toprol RE AC: - 05/25: CHADS-VASC = 4 (>5...first time chf here most likely sec to rapid afib) . pt would benefit from AC--however she is not a candidate for AC at the present time in light of: (a) acute on chronic (longstanding) anemia here, with prior NSAID-induced gastritis, and ongoing daily (high dose) NSAID use; (b) likely UGIB (stool occult blood +); and (c) pt refusing GI rec for rpt EGD prior to initiating AC. She also refused LA appendage closure (Watchman device) b/c does not want any invasive procedures. Therefore, there are no effective stroke prevention options available to this pt which are safe to employ. (would not rec ASA 81 given very limited efficacy for afib stroke prevention, and hi risk of worsening NSAID-induced UGIB source.) Dr. Lackey d/w patient/family again 05/25 - est'd 4%/year risk of CVA (vs <1% if on AC), and the above options but she reiterates she will not pursue any invasive procedures and prefers to accept this stroke risk. do not recommend use of NOAC at the moment, in line with pt wishes to avoid procedures and hospitalization, given high probability of acutely worsening her anemia and/or causing severe bleeding. she states that she intends to discontinue all NSAID use (back pain tolerable). recommend ? intensive PPI (per GI) and if H/H remain stable over next 6-8 wks, and rpt stool is negative for occult blood at that time, ? can try NOAC with continued prophylactic PPI. 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 routine outpatient surveillance. angela, - now resolved with diuresis, renal following.
--- NOTE | 2017-05-29 11:56 | PN ---
Progress Note (short form) - Note Progress Note: Pt seen and examined. CHart reviewed. Hgb stable. O/E: general: NAD HEENT: NCAT Cor: Irregular Lungs: Dec anterior auscultation Gastrointestinal: Normal Bowel Sounds, Soft Extremities: WNL Edema: Yes Last Vital Signs Temp Pulse Resp BP Pulse Ox 98 F 95 H 20 112/66 95 05/29/17 09:00 05/29/17 09:00 05/29/17 09:00 05/29/17 09:00 05/28/17 21:00 CBC, BMP 05/28/17 05:35 05/28/17 05:35 Current Medications Generic Name Dose Route Start Last Admin Trade Name Freq PRN Reason Stop Dose Admin Diltiazem HCl 90 mg 05/26/17 22:00 05/29/17 05:53 Cardizem - PO 90 mg TID TRES Administration Ferrous Sulfate 325 mg 05/23/17 17:30 05/29/17 09:43 Feosol - PO 325 mg BIDWM TRES Administration Furosemide 40 mg 05/25/17 14:00 05/29/17 05:53 Lasix Injection - IVPUSH 40 mg BIDLASIX TRES Administration Heparin Sodium (Porcine) 1,000 unit 05/29/17 00:51 Heparin - IVPUSH PRN PRN Heparin Heparin Sodium (Porcine) 5,000 unit 05/29/17 00:51 Heparin - IVPUSH PRN PRN Heparin Heparin Sodium/Dextrose 25,000 units in 500 mls @ 20 mls/hr 05/26/17 20:00 09:44 Heparin Infusion - IVPB 950 units/hr TITR TRES 19 mls/hr Protocol Administration 1,000 UNITS/HR Metoprolol Succinate 25 mg 05/26/17 22:00 05/29/17 09:43 Toprol Xl - PO 25 mg BID TRES Administration Polyethylene Glycol 17 gm 05/28/17 13:54 Miralax (For Daily Use) - PO BID PRN CONSTIPATION Potassium Chloride 20 meq 05/25/17 10:45 05/29/17 09:43 K-Dur - PO 20 meq BID TRES Administration Ranitidine HCl 150 mg 05/23/17 11:19 05/29/17 09:43 Zantac - PO 150 mg BID TRES Administration Fe def anemia in the setting of GIB ( occult ) Afib w/ RVR High CHADsVasc Score Dose IV iron today. Pt continues to refuse GI procedures ( citing, " I've had them before"). on hep drip now, For consideration of NOACs for Afib All consults noted
[2017-05-29] MEDS ORDERED: IRON SUCROSE INJECTION 100 MG in SODIUM CHLORIDE 95 ML IVPB ONE (13:17)
--- NOTE | 2017-05-29 13:55 | PN ---
Progress Note, Physician History of Present Illness: pulmonary alert,feeling better,less dyspneic,-cp,-cough - Current Medication List Current Medications: Active Medications Diltiazem HCl (Cardizem -) 90 mg PO TID [facility] Last Admin: 05/29/17 05:53 Dose: 90 mg Ferrous Sulfate (Feosol -) 325 mg PO BIDWM [facility] Last Admin: 05/29/17 09:43 Dose: 325 mg Furosemide (Lasix Injection -) 40 mg IVPUSH BIDLASIX [facility] Last Admin: 05/29/17 05:53 Dose: 40 mg Heparin Sodium (Porcine) (Heparin -) 1,000 unit IVPUSH PRN PRN PRN Reason: Heparin Heparin Sodium (Porcine) (Heparin -) 5,000 unit IVPUSH PRN PRN PRN Reason: Heparin Heparin Sodium/Dextrose (Heparin Infusion -) 25,000 units in 500 mls @ 20 mls/ hr IVPB TITR TRES; 1,000 UNITS/HR PRN Reason: Protocol Last Admin: 05/29/17 09:44 Dose: 950 units/hr, 19 mls/hr Iron Sucrose 100 mg/ Sodium (Chloride) 100 mls @ 200 mls/hr IVPB ONCE ONE Stop: 05/29/17 13:46 Metoprolol Succinate (Toprol Xl -) 25 mg PO BID [facility] Last Admin: 05/29/17 09:43 Dose: 25 mg Polyethylene Glycol (Miralax (For Daily Use) -) 17 gm PO BID PRN PRN Reason: CONSTIPATION Potassium Chloride (K-Dur -) 20 meq PO BID [facility] Last Admin: 05/29/17 09:43 Dose: 20 meq Ranitidine HCl (Zantac -) 150 mg PO BID [facility] Last Admin: 05/29/17 09:43 Dose: 150 mg - Objective Vital Signs: Vital Signs Temperature 98 F 05/29/17 09:00 Pulse Rate 95 H 05/29/17 09:00 Respiratory Rate 20 05/29/17 09:00 Blood Pressure 112/66 05/29/17 09:00 O2 Sat by Pulse Oximetry (%) 95 05/28/17 21:00 Constitutional: Yes: Well Nourished, Calm Eyes: Yes: WNL HENT: Yes: WNL Neck: Yes: WNL Cardiovascular: Yes: Pulse Irregular, S1, S2 Respiratory: Yes: Rales (bibasilar rales) Gastrointestinal: Yes: Normal Bowel Sounds, Soft Extremities: Yes: WNL Edema: No Labs: Problem List - Problems (1) Acute respiratory failure with hypoxia and hypercapnia Code(s): J96.01 - ACUTE RESPIRATORY FAILURE WITH HYPOXIA; J96.02 - ACUTE RESPIRATORY FAILURE WITH HYPERCAPNIA (2) Congestive heart failure (CHF) Code(s): I50.9 - HEART FAILURE, UNSPECIFIED Qualifiers: Heart failure type: unspecified Heart failure chronicity: acute Qualified Code(s): I50.9 - Heart failure, unspecified (3) Microcytic anemia Code(s): D50.9 - IRON DEFICIENCY ANEMIA, UNSPECIFIED (4) New onset a-fib Code(s): I48.91 - UNSPECIFIED ATRIAL FIBRILLATION (5) Pneumonia Code(s): J18.9 - PNEUMONIA, UNSPECIFIED ORGANISM Qualifiers: Pneumonia type: due to unspecified organism Laterality: bilateral Lung location: lower lobe of lung Qualified Code(s): J18.1 - Lobar pneumonia, unspecified organism (6) Bilateral pleural effusion Code(s): J90 - PLEURAL EFFUSION, NOT ELSEWHERE CLASSIFIED Assessment/Plan IMP ACUTE HYPOXEMIC/HYPERCAPNEIC RESPIRATORY FAILURE IMPROVINg CHF CLINICALLY IMPROVING BILATERAL PLEURAL EFFUSIONS TRANSUDATE RAPID AFIB DIASTOLIC HF ANEMIA NATHALIE PLAN LASIX AC BIPAP PRN O2 NORMAL TRANSFUSION THRESHOLD MONITOR LYTES,RENAL FUNCTION MONITOR H+H PT REFUSES GI W/U DR MAR Problem List - Problems (1) Acute respiratory failure with hypoxia and hypercapnia Code(s): J96.01 - ACUTE RESPIRATORY FAILURE WITH HYPOXIA; J96.02 - ACUTE RESPIRATORY FAILURE WITH HYPERCAPNIA (2) Congestive heart failure (CHF) Code(s): I50.9 - HEART FAILURE, UNSPECIFIED Qualifiers: Heart failure type: unspecified Heart failure chronicity: acute Qualified Code(s): I50.9 - Heart failure, unspecified (3) Microcytic anemia Code(s): D50.9 - IRON DEFICIENCY ANEMIA, UNSPECIFIED (4) New onset a-fib Code(s): I48.91 - UNSPECIFIED ATRIAL FIBRILLATION (5) Pneumonia Code(s): J18.9 - PNEUMONIA, UNSPECIFIED ORGANISM Qualifiers: Pneumonia type: due to unspecified organism Laterality: bilateral Lung location: lower lobe of lung Qualified Code(s): J18.9 - Pneumonia, unspecified organism (6) Bilateral pleural effusion Code(s): J90 - PLEURAL EFFUSION, NOT ELSEWHERE CLASSIFIED
--- NOTE | 2017-05-29 22:23 | PN ---
Physical Exam: SUBJECTIVE: Patient seen and examined at the bedside. States she is not depressed a her kids claim that she is. Feels better today Breathing improving OBJECTIVE: Vital Signs Period Temp Pulse Resp BP Sys/Marino Pulse Ox Last 24 Hr 97.9 F-98.1 F 88-110 18-20 86-112/47-71 GENERAL: The patient is awake, alert, and fully oriented, in no acute distress. HEAD: Normal with no signs of trauma. EYES: PERRL, extraocular movements intact, sclera anicteric, conjunctiva clear. No ptosis. ENT: Ears normal, nares patent, oropharynx clear without exudates, moist mucous membranes. NECK: Trachea midline, full range of motion, supple. LUNGS: + crackles on right mid and lower lobe, left lung dim./clear HEART: irregular ABDOMEN: Soft, nontender, nondistended, normoactive bowel sounds, no guarding, NEUROLOGICAL: Normal speech, gait not observed. PSYCH: Normal mood, normal affect. Laboratory Results - last 24 hr 05/29/17 06:15 PTT (Actin FS) 64.6 H Active Medications Generic Name Dose Route Start Last Admin Trade Name Freq PRN Reason Stop Dose Admin Diltiazem HCl 90 mg 05/26/17 22:00 05/29/17 16:07 Cardizem - PO 90 mg TID TRES Administration Ferrous Sulfate 325 mg 05/23/17 17:30 05/29/17 21:35 Feosol - PO Not Given BIDWM TRES Furosemide 40 mg 05/25/17 14:00 05/29/17 16:07 Lasix Injection - IVPUSH 40 mg BIDLASIX TRES Administration Heparin Sodium (Porcine) 1,000 unit 05/29/17 00:51 Heparin - IVPUSH PRN PRN Heparin Heparin Sodium (Porcine) 5,000 unit 05/29/17 00:51 Heparin - IVPUSH PRN PRN Heparin Heparin Sodium/Dextrose 25,000 units in 500 mls @ 20 mls/hr 05/26/17 20:00 09:44 Heparin Infusion - IVPB 950 units/hr TITR TRES 19 mls/hr Protocol Administration 1,000 UNITS/HR Metoprolol Succinate 25 mg 05/26/17 22:00 05/29/17 09:43 Toprol Xl - PO 25 mg BID TRES Administration Polyethylene Glycol 17 gm 05/28/17 13:54 Miralax (For Daily Use) - PO BID PRN CONSTIPATION Potassium Chloride 20 meq 05/25/17 10:45 05/29/17 09:43 K-Dur - PO 20 meq BID TRES Administration Ranitidine HCl 150 mg 05/23/17 11:19 05/29/17 09:43 Zantac - PO 150 mg BID TRES Administration ASSESSMENT/PLAN: Patient is a 87 year old female with a significant past medical history of hypertension, renal calcili and iron deficiency anemia. Patient lives at home with her son and was brought in by her family afterr she was noted to have shortness of breath x 1 month with a non productive cough. Card: New onset atrial fibrillation with RVR, now controlled On Metoprol xl 25mg BID, Cardizem 90mg TID On heparin drip Not candidate at this time for NOAC due to hx of GI bleed and chronic NSAID use at home Patient was being evaluated by GI for a possible EGD and colonoscopy but pt refusing workup Will continue the heparin drip inpatient Discussed with cardiology, pt to follow up outpatient for for assured stability of hmg/hct for a few weeks and have negative occult blood in stools prior to starting on anticoag. Protonix 40mg daily should continue as outpatient Acute on diatolic heart failure Patient s/p right thoracentesis on 05/26/17 with 220 cc of fluid removed Breathing is better, on supplemental oxygen On Lasix 40mg IV BID Weight improving with diuretics Daily weights, monitor output Pulmonary: Hypoxia/hypercapnic respiratory failure On bipap s/p thora. Pulmonary following Heme: Iron def anemia s/p 2 unit of prbc hmg/hct stable Monitor daily On iron supplementation Refusing GI workup. F.E.N. Fluids: PO adequate Electrolytes: monitor Nutrition: low salt Prophy: Heparin drip, Protonix Full code.
[2017-05-30] MEDS: FUROSEMIDE 40 MG/4 ML INJECTABLE VIAL IVPUSH SCH (06:02)
[2017-05-30] MEDS: dilTIAZem HCL 30 MG TABLET (FP) PO SCH ×3 (06:02→22:17)
[2017-05-30] MEDS: guaiFENesin 200 MG/10 ML 10 ML UNIT-DOSE CUPS PO PRN ×2 (06:32→22:24)
[2017-05-30 08:07] LABS: ALBUMIN 2.7 g/dl (3.4-5.0); ANION GAP 10 (8-16); BLOOD UREA NITROGEN 38 mg/dL (7-18); CALCIUM 9.4 mg/dL (8.5-10.1); CHLORIDE 94 mmol/L (98-107); CO2 35 mmol/L (21-32); POTASSIUM 4.4 mmol/L (3.5-5.1); SODIUM 139 mmol/L (136-145)
[2017-05-30 08:10] LABS: ALK PHOS 87 U/L (45-117); BILIRUBIN,TOTAL 0.8 mg/dL (0.2-1.0); CREATININE 1.6 mg/dL (0.55-1.02); GLUCOSE,RANDOM 107 mg/dL (74-106); SGOT/AST 13 U/L (15-37); SGPT/ALT 13 U/L (12-78); TOT PROT 5.6 g/dl (6.4-8.2)
[2017-05-30] MEDS: FERROUS SO4 325 MG TABLET (FP) PO SCH ×2 (08:15→16:43)
[2017-05-30 08:18] LABS: BASO % 0.7 % (0-2.0); EOS % 5.3 % (0-4.5); HEMATOCRIT 31.4 % (32.4-45.2); HEMOGLOBIN 9.5 GM/dL (10.7-15.3); LYMPH % 21.2 % (8-40); MCHC 30.3 g/dl (32.0-36.0); MEAN CELL VOLUME 69.2 fl (80-96); MONO % 13.5 % (3.8-10.2); NEUT % 59.3 % (42.8-82.8); PLATELET COUNT 166 K/MM3 (134-434); RBC 4.53 M/mm3 (3.60-5.2); RDW 29.2 % (11.6-15.6)
[2017-05-30] MEDS: POTASSIUM CHLORIDE TABS 10 MEQ TABLET.ER (FP) PO SCH ×2 (09:27→22:18)
[2017-05-30] MEDS: metoPROLOL SUCCINATE 25 MG TAB.SR.24H (FP) PO SCH ×2 (09:27→22:17)
[2017-05-30] MEDS: PANTOPRAZOLE 40 MG TABLET (FP) PO SCH (09:27)
[2017-05-30] MEDS: RANITIDINE HCL 150 MG TABLET (FP) PO SCH ×2 (09:27→22:18)
--- NOTE | 2017-05-30 10:55 | PN ---
Progress Note (short form) - Note Progress Note: Chief Complaint: afib, chf History of Present Illness: cough improved no sob no palpitations no cp no cigs Current Medications Generic Name Dose Route Start Last Admin Trade Name Freq PRN Reason Stop Dose Admin Diltiazem HCl 90 mg 05/26/17 22:00 05/30/17 06:02 Cardizem - PO 90 mg TID TRES Administration Ferrous Sulfate 325 mg 05/23/17 17:30 05/30/17 08:15 Feosol - PO 325 mg BIDWM TRES Administration Furosemide 40 mg 05/31/17 06:00 Lasix - PO BID@0600,1400 TRES Guaifenesin 10 ml 05/30/17 06:10 05/30/17 06:32 Robitussin - PO 10 ml Q6H PRN Administration COUGH Heparin Sodium (Porcine) 1,000 unit 05/29/17 00:51 Heparin - IVPUSH PRN PRN Heparin Heparin Sodium (Porcine) 5,000 unit 05/29/17 00:51 Heparin - IVPUSH PRN PRN Heparin Heparin Sodium/Dextrose 25,000 units in 500 mls @ 20 mls/hr 05/26/17 20:00 09:03 Heparin Infusion - IVPB 900 units/hr TITR TRES 18 mls/hr Protocol Titration 1,000 UNITS/HR Metoprolol Succinate 25 mg 05/26/17 22:00 05/30/17 09:27 Toprol Xl - PO 25 mg BID TRES Administration Pantoprazole Sodium 40 mg 05/30/17 10:00 05/30/17 09:27 Protonix - PO 40 mg DAILY TRES Administration Polyethylene Glycol 17 gm 05/28/17 13:54 Miralax (For Daily Use) - PO BID PRN CONSTIPATION Potassium Chloride 20 meq 05/25/17 10:45 05/30/17 09:27 K-Dur - PO 20 meq BID TRES Administration Ranitidine HCl 150 mg 05/23/17 11:19 05/30/17 09:27 Zantac - PO 150 mg BID TRES Administration - Objective Vital Signs: Vital Signs Period Temp Pulse Resp BP Sys/Marino Pulse Ox Last 24 Hr 97.6 F-98.1 F 77-107 20-20 97-104/51-71 95 Constitutional: No Distress, Eyes: Yes: Conjunctiva Clear Cardiovascular: Yes: Pulse Irregular, 2/6 sys murmur at apex. Respiratory: Yes: cta bl nl eff No: Rales, Rhonchi, Wheezes Gastrointestinal: Yes: Normal Bowel Sounds, Soft Extremities: Yes: Other (warm) Edema: no le edema Neurological: Yes: Alert, Oriented no jaundice diaphoresis. Labs: CBC, BMP 05/30/17 06:00 05/30/17 06:00 - ....Imaging EKG: Other (tele: rate controlled Afib ) echo 05/2017: nl lv. mild rve, nl rv fcn. mil-mod mr, sev tr, mild-mod ar. nl rvsp chest ct images and report reviewed. notable for bilateral effusions and 4.6 thoracic dilation/aneurysm. see emr for details. Assessment/Plan 87 yo with h/o htn on norvasc, fe deficiency anemia, nsaid induced gastritis, OA , anxiety/depression and prior ureteral stent here with dry cough for a month found with evidence of CHF, rapid afib and possible URI/?pna. acute diastolic chf: -CHF may be from diastolic dysfunction in setting of rapid afib. Also with severe tr and mild rve (nl fn), though reportedly normal RV syst pressure on echo. -05/23: cont iv lasix for now. appears to be net negative with good uop and cr improving on current regimen, but weight increased. Will repeat standing weight and reassess tomorrow. - 05/24: cr stable, weight coming down, symptomatically improving. con't current regimen - 05/25: wt trend down 196 to 191 here. renal fxn stable. receiving lasix 40 iv qd. cxr 05/24 with worsening effusions +/- lower zone congestion. rales on exam-- incr lasix to 40 iv bid today. - 05/26: ongoing clinical improvement on bid lasix, stable bmp. Con't same. Also s/p thora today. - 05/27-: ongoing clinical improvement on bid lasix, wt down, stable bmp. Con' t same. -05/30: wt unchanged today and cr up, likely at baseline wt now. will dc iv lasix and start po 40 bid tomorrow. - con't i/o's, daily weights, bmp. new diagnosis of afib, presented in rvr. - anterolateral st depressions when in RVR. no angina, neg troponins. outpt elective stress test for risk stratification. - HRs suboptimal here on toprol 50 bid. BPs trended down on 75 bid so changed back to 50 bid on 05/24. + h/o depression per PMD-monitor for worsening depressive sx's on toprol. - 05/25: not responding well to metoprolol alone, added diltiazem 60 TID. if bp trends down, decr dose of metoprolol (ditto if any signs of depression worsening) - 05/26: responding well to diltiazem, sbp's stable in the 110's. Will further uptitrate diltiazem to 90 tid and wean toprol to 25 bid. -05/27-: rate controlled on dilt/toprol RE AC: - 05/25: CHADS-VASC = 4 (>5...first time chf here most likely sec to rapid afib) . pt would benefit from AC--however she is not a candidate for AC at the present time in light of: (a) acute on chronic (longstanding) anemia here, with prior NSAID-induced gastritis, and ongoing daily (high dose) NSAID use; (b) likely UGIB (stool occult blood +); and (c) pt refusing GI rec for rpt EGD prior to initiating AC. She also refused LA appendage closure (Watchman device) b/c does not want any invasive procedures. Therefore, there are no effective stroke prevention options available to this pt which are safe to employ. (would not rec ASA 81 given very limited efficacy for afib stroke prevention, and hi risk of worsening NSAID-induced UGIB source.) Dr. Lackey d/w patient/family again 05/25 - est'd 4%/year risk of CVA (vs <1% if on AC), and the above options but she reiterates she will not pursue any invasive procedures and prefers to accept this stroke risk. do not recommend use of NOAC at the moment, in line with pt wishes to avoid procedures and hospitalization, given high probability of acutely worsening her anemia and/or causing severe bleeding. she states that she intends to discontinue all NSAID use (back pain tolerable). recommend ? intensive PPI (per GI) and if H/H remain stable over next 6-8 wks, and rpt stool is negative for occult blood at that time, ? can try NOAC with continued prophylactic PPI. 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 routine outpatient surveillance. angela, - cr up a bit, will dc iv lasix and trend
--- NOTE | 2017-05-30 11:40 | PN ---
Progress Note (short form) - Note Progress Note: Appears comfortable on NC O2. Cough is improved. No CP or SOB. Intake & Output 05/27/17 05/28/17 05/29/17 05/30/17 23:59 23:59 23:59 23:59 Intake Total 1243 1421 253 Output Total 2300 1900 3300 650 Balance -1057 -479 -3047 -650 Weight 183 lb 9 oz 180 lb 6 oz 176 lb 4 oz 177 lb 2 oz Last Vital Signs Temp Pulse Resp BP Pulse Ox 97.7 F 96 H 20 104/62 95 05/30/17 05:54 05/30/17 05:54 05/30/17 05:54 05/30/17 05:54 05/29/17 21:00 Active Medications Diltiazem HCl (Cardizem -) 90 mg PO TID [facility] Last Admin: 05/30/17 06:02 Dose: 90 mg Ferrous Sulfate (Feosol -) 325 mg PO BIDWM [facility] Last Admin: 05/30/17 08:15 Dose: 325 mg Furosemide (Lasix -) 40 mg PO BID@0600,1400 [facility] Guaifenesin (Robitussin -) 10 ml PO Q6H PRN PRN Reason: COUGH Last Admin: 05/30/17 06:32 Dose: 10 ml Heparin Sodium (Porcine) (Heparin -) 1,000 unit IVPUSH PRN PRN PRN Reason: Heparin Heparin Sodium (Porcine) (Heparin -) 5,000 unit IVPUSH PRN PRN PRN Reason: Heparin Heparin Sodium/Dextrose (Heparin Infusion -) 25,000 units in 500 mls @ 20 mls/ hr IVPB TITR TRES; 1,000 UNITS/HR PRN Reason: Protocol Last Titration: 05/30/17 09:03 Dose: 900 units/hr, 18 mls/hr Metoprolol Succinate (Toprol Xl -) 25 mg PO BID [facility] Last Admin: 05/30/17 09:27 Dose: 25 mg Pantoprazole Sodium (Protonix -) 40 mg PO DAILY [facility] Last Admin: 05/30/17 09:27 Dose: 40 mg Polyethylene Glycol (Miralax (For Daily Use) -) 17 gm PO BID PRN PRN Reason: CONSTIPATION Potassium Chloride (K-Dur -) 20 meq PO BID [facility] Last Admin: 03/17/18 09:27 Dose: 20 meq Ranitidine HCl (Zantac -) 150 mg PO BID [facility] Last Admin: 05/30/17 09:27 Dose: 150 mg Constitutional: Yes: NAD Eyes: Yes: WNL HENT: Yes: WNL Neck: Yes: WNL Cardiovascular: Yes: Pulse Irregular, S1, S2 Respiratory: Yes: scattered bibasilar rhonchi Gastrointestinal: Yes: Normal Bowel Sounds, Soft Extremities: Yes: WNL Edema: Yes Labs: Laboratory Results - last 24 hr 05/30/17 05/30/17 05/30/17 06:00 06:00 06:00 WBC 8.0 RBC 4.53 Hgb 9.5 L Hct 31.4 L MCV 69.2 L MCH 21.0 L MCHC 30.3 L RDW 29.2 H Plt Count 166 MPV 9.0 Neutrophils % 59.3 Lymphocytes % 21.2 D Monocytes % 13.5 H Eosinophils % 5.3 H D Basophils % 0.7 D PTT (Actin FS) 75.9 H Sodium 139 Potassium 4.4 Chloride 94 L Carbon Dioxide 35 H Anion Gap 10 BUN 38 H Creatinine 1.6 H Creat Clearance w eGFR 30.63 Random Glucose 107 H Calcium 9.4 Total Bilirubin 0.8 AST 13 L ALT 13 Alkaline Phosphatase 87 Total Protein 5.6 L Albumin 2.7 L Problem List - Problems (1) Acute respiratory failure with hypoxia and hypercapnia Code(s): J96.01 - ACUTE RESPIRATORY FAILURE WITH HYPOXIA; J96.02 - ACUTE RESPIRATORY FAILURE WITH HYPERCAPNIA (2) Congestive heart failure (CHF) Code(s): I50.9 - HEART FAILURE, UNSPECIFIED Qualifiers: Qualified Code(s): I50.9 - Heart failure, unspecified (3) Microcytic anemia Code(s): D50.9 - IRON DEFICIENCY ANEMIA, UNSPECIFIED (4) New onset a-fib Code(s): I48.91 - UNSPECIFIED ATRIAL FIBRILLATION (5) Pneumonia Code(s): J18.9 - PNEUMONIA, UNSPECIFIED ORGANISM Qualifiers: Qualified Code(s): J18.1 - Lobar pneumonia, unspecified organism (6) Bilateral pleural effusion Code(s): J90 - PLEURAL EFFUSION, NOT ELSEWHERE CLASSIFIED Assessment/Plan IMP ACUTE HYPOXEMIC/HYPERCAPNEIC RESPIRATORY FAILURE IMPROVING CHF CLINICALLY IMPROVING BILATERAL PLEURAL EFFUSIONS TRANSUDATE RAPID AFIB DIASTOLIC HF ANEMIA NATHALIE PLAN LASIX AC NIPPV PRN O2 NORMAL TRANSFUSION THRESHOLD MONITOR H+H Dr Pedersen
--- NOTE | 2017-05-30 19:02 | PN ---
Progress Note (short form) - Note Progress Note: Subjective: The patient was seen and examined at the bedside, she denies any complaints at this time Current Medications Generic Name Dose Route Start Last Admin Trade Name Veda PRN Reason Stop Dose Admin Diltiazem HCl 90 mg 05/26/17 22:00 05/31/17 14:58 Cardizem - PO 90 mg TID TRES Administration Ferrous Sulfate 325 mg 05/23/17 17:30 05/31/17 17:23 Feosol - PO 325 mg BIDWM TRES Administration Furosemide 40 mg 05/31/17 06:00 05/31/17 14:58 Lasix - PO 40 mg BID@0600,1400 TRES Administration Guaifenesin 10 ml 05/30/17 06:10 05/31/17 05:51 Robitussin - PO 10 ml Q6H PRN Administration COUGH Heparin Sodium (Porcine) 1,000 unit 05/29/17 00:51 Heparin - IVPUSH PRN PRN Heparin Heparin Sodium (Porcine) 5,000 unit 05/29/17 00:51 Heparin - IVPUSH PRN PRN Heparin Heparin Sodium/Dextrose 25,000 units in 500 mls @ 20 mls/hr 05/26/17 20:00 10:29 Heparin Infusion - IVPB 900 units/hr TITR TRES 18 mls/hr Protocol Administration 1,000 UNITS/HR Metoprolol Succinate 25 mg 05/26/17 22:00 05/31/17 10:27 Toprol Xl - PO 25 mg BID TRES Administration Pantoprazole Sodium 40 mg 05/30/17 10:00 05/31/17 10:28 Protonix - PO 40 mg DAILY TRES Administration Polyethylene Glycol 17 gm 05/28/17 13:54 Miralax (For Daily Use) - PO BID PRN CONSTIPATION Potassium Chloride 20 meq 05/25/17 10:45 05/31/17 10:28 K-Dur - PO 20 meq BID TRES Administration Ranitidine HCl 150 mg 05/23/17 11:19 05/31/17 10:28 Zantac - PO 150 mg BID TRES Administration Objective: Vital Signs Period Temp Pulse Resp BP Sys/Marino Pulse Ox Last 24 Hr 97.5 F-98.7 F 73-89 18-20 95-125/47-73 95-95 Physical Exam: General: NAD, A&Ox3 Lungs: Decreased breath sounds bilaterally Heart: Irregular rate, S1S2 Abd: Soft, non-tender, non-distended. Normoactive bowel sounds Ext: Warm, well-perfused. 2+ DP/PT bilaterally Neuro: CN 2-12 intact Microbiology 05/26/17 10:30 Pleural Fluid AFB Smear Concentration - Final 05/26/17 10:30 Pleural Fluid Mycobacterial Culture - Preliminary 05/26/17 10:30 Pleural Fluid Gram Stain - Final 05/26/17 10:30 Pleural Fluid Body Fluid Culture - Final NO GROWTH OF AEROBIC ORGANISMS AFTER 48 HOURS INCUBATION 05/26/17 10:30 Pleural Fluid Anaerobic Culture - Final NO ANAEROBES WERE ISOLATED 05/26/17 10:30 Pleural Fluid JAYCE Preparation - Preliminary 05/26/17 10:30 Pleural Fluid Fungal Culture - Preliminary 05/20/17 04:57 Blood - Peripheral Venous Blood Culture - Final NO GROWTH AFTER 5 DAYS INCUBATION 05/20/17 04:57 Blood - Peripheral Venous Blood Culture - Final NO GROWTH AFTER 5 DAYS INCUBATION 05/20/17 06:45 Urine For Antigen Detection Legionella Antigen - Final 05/20/17 06:45 Urine For Antigen Detection Streptococcus pneumoniae Antigen (M - Final 05/20/17 09:25 Urine - Urine Clean Catch Urine Culture - Final Assessment: This is an 87 year old female with PMHx of HTN, renal calculi, iron deficiency anemia, who presented to the ED with one month or shortness of breath and non-productive cough Plan: 1) New onset a.fib with RVR - On Heparin gtt, plan is to discontinue all anticoagulation on discharge. Will monitor off A/C as outpatient for 6 week. If Hgb remains stable during that time , then cardiology will consider starting NOAC. Discussed plan with Dr. Spencer - Toprol XL 25mg po bid - Appreciate hematology consult regarding switching patient to NOAC - Appreciate cardiology consult 2) Stool for occult blood positive - In the setting of iron deficiency anemia - Patient continuing to refuse GI workup - S/p 2U PRBC 05/21 - Appreciate GI consult 3) Acute diastolic CHF - Likely 2/2 to diastolic dysfunction in setting of rapid a.fib - Continue IV Lasix, can switch to po tomorrow per cardiology - Strict I&O - Daily weights 4) NATHALIE - Worsening renal function today, continue to trend - Consider holding Lasix IV if continues to worsen 5) B/l pleural effusions - S/p thoracentesis on 05/26 - Breathing improved - F/u pre/post O2 to determine if the patient will need home O2 6) F/E/N: - Monitor electrolytes - Regular diet 7) Prophylaxis: - On Heparin gtt - Protonix - PT 8) Dispo: - Requires continued inpatient care CODE STATUS: FULL CODE Visit type - Emergency Visit Emergency Visit: Yes ED Registration Date: 05/20/17 Care time: The patient presented to the Emergency Department on the above date and was hospitalized for further evaluation of their emergent condition. - New Patient This patient is new to me today: No - Critical Care Critical Care patient: No
[2017-05-30] MEDS: HEPARIN INFUSION - 25,000 UNITS/500 ML INFUS.BAG IVPB SCH (22:19)
[2017-05-31] MEDS: guaiFENesin 200 MG/10 ML 10 ML UNIT-DOSE CUPS PO PRN (05:51)
[2017-05-31] MEDS: dilTIAZem HCL 30 MG TABLET (FP) PO SCH ×3 (05:52→21:50)
[2017-05-31] MEDS: FUROSEMIDE 40 MG TABLET (FP) PO SCH ×2 (05:52→14:58)
[2017-05-31 08:08] LABS: HEMATOCRIT 31.1 % (32.4-45.2); HEMOGLOBIN 9.6 GM/dL (10.7-15.3); MCH 21.2 pg (25.7-33.7); MCHC 30.7 g/dl (32.0-36.0); MEAN PLT VOLUME 9.4 fl (7.5-11.1); PLATELET COUNT 164 K/MM3 (134-434); RBC 4.51 M/mm3 (3.60-5.2); RDW 29.6 % (11.6-15.6); WHITE BLOOD COUNT 6.9 K/mm3 (4.0-10.0)
[2017-05-31 08:28] LABS: ANION GAP 12 (8-16); BLOOD UREA NITROGEN 40 mg/dL (7-18); CALCIUM 9.1 mg/dL (8.5-10.1); CHLORIDE 96 mmol/L (98-107); CO2 32 mmol/L (21-32); CREATININE 1.7 mg/dL (0.55-1.02); GLUCOSE,RANDOM 112 mg/dL (74-106); POTASSIUM 4.6 mmol/L (3.5-5.1); SODIUM 140 mmol/L (136-145)
[2017-05-31] MEDS: FERROUS SO4 325 MG TABLET (FP) PO SCH ×2 (10:27→17:23)
[2017-05-31] MEDS: metoPROLOL SUCCINATE 25 MG TAB.SR.24H (FP) PO SCH ×2 (10:27→21:50)
[2017-05-31] MEDS: PANTOPRAZOLE 40 MG TABLET (FP) PO SCH (10:28)
[2017-05-31] MEDS: POTASSIUM CHLORIDE TABS 10 MEQ TABLET.ER (FP) PO SCH ×2 (10:28→21:49)
[2017-05-31] MEDS: RANITIDINE HCL 150 MG TABLET (FP) PO SCH ×2 (10:28→21:50)
[2017-05-31] MEDS: HEPARIN INFUSION - 25,000 UNITS/500 ML INFUS.BAG IVPB SCH ×2 (10:29→21:43)
--- NOTE | 2017-05-31 10:56 | PN ---
Progress Note (short form) - Note Progress Note: Chief Complaint: afib, chf History of Present Illness: cough improved no sob no palpitations no cp no cigs Current Medications Generic Name Dose Route Start Last Admin Trade Name Freq PRN Reason Stop Dose Admin Diltiazem HCl 90 mg 05/26/17 22:00 05/31/17 05:52 Cardizem - PO 90 mg TID TRES Administration Ferrous Sulfate 325 mg 05/23/17 17:30 05/31/17 10:27 Feosol - PO 325 mg BIDWM TRES Administration Furosemide 40 mg 05/31/17 06:00 05/31/17 05:52 Lasix - PO 40 mg BID@0600,1400 TRES Administration Guaifenesin 10 ml 05/30/17 06:10 05/31/17 05:51 Robitussin - PO 10 ml Q6H PRN Administration COUGH Heparin Sodium (Porcine) 1,000 unit 05/29/17 00:51 Heparin - IVPUSH PRN PRN Heparin Heparin Sodium (Porcine) 5,000 unit 05/29/17 00:51 Heparin - IVPUSH PRN PRN Heparin Heparin Sodium/Dextrose 25,000 units in 500 mls @ 20 mls/hr 05/26/17 20:00 10:29 Heparin Infusion - IVPB 900 units/hr TITR TRES 18 mls/hr Protocol Administration 1,000 UNITS/HR Metoprolol Succinate 25 mg 05/26/17 22:00 05/31/17 10:27 Toprol Xl - PO 25 mg BID TRES Administration Pantoprazole Sodium 40 mg 05/30/17 10:00 05/31/17 10:28 Protonix - PO 40 mg DAILY TRES Administration Polyethylene Glycol 17 gm 05/28/17 13:54 Miralax (For Daily Use) - PO BID PRN CONSTIPATION Potassium Chloride 20 meq 05/25/17 10:45 05/31/17 10:28 K-Dur - PO 20 meq BID TRES Administration Ranitidine HCl 150 mg 05/23/17 11:19 05/31/17 10:28 Zantac - PO 150 mg BID TRES Administration - Objective Vital Signs: Vital Signs Period Temp Pulse Resp BP Sys/Marino Pulse Ox Last 24 Hr 97.5 F-98.7 F 73-89 18-20 95-125/47-73 95-95 Constitutional: No Distress, Eyes: Yes: Conjunctiva Clear Cardiovascular: Yes: Pulse Irregular, 2/6 sys murmur at apex. Respiratory: Yes: cta bl nl eff No: Rales, Rhonchi, Wheezes Gastrointestinal: Yes: Normal Bowel Sounds, Soft Extremities: Yes: Other (warm) Edema: no le edema Neurological: Yes: Alert, Oriented no jaundice diaphoresis. Labs: CBC, BMP 05/31/17 06:30 05/31/17 07:45 EKG: Other (tele: rate controlled Afib ) echo 05/2017: nl lv. mild rve, nl rv fcn. mil-mod mr, sev tr, mild-mod ar. nl rvsp chest ct images and report reviewed. notable for bilateral effusions and 4.6 thoracic dilation/aneurysm. see emr for details. Assessment/Plan 87 yo with h/o htn on norvasc, fe deficiency anemia, nsaid induced gastritis, OA , anxiety/depression and prior ureteral stent here with dry cough for a month found with evidence of CHF, rapid afib and possible URI/?pna. acute diastolic chf: -CHF may be from diastolic dysfunction in setting of rapid afib. Also with severe tr and mild rve (nl fn), though reportedly normal RV syst pressure on echo. -05/23: cont iv lasix for now. appears to be net negative with good uop and cr improving on current regimen, but weight increased. Will repeat standing weight and reassess tomorrow. - 05/24: cr stable, weight coming down, symptomatically improving. con't current regimen - 05/25: wt trend down 196 to 191 here. renal fxn stable. receiving lasix 40 iv qd. cxr 05/24 with worsening effusions +/- lower zone congestion. rales on exam-- incr lasix to 40 iv bid today. - 05/26: ongoing clinical improvement on bid lasix, stable bmp. Con't same. Also s/p thora today. - 05/27-: ongoing clinical improvement on bid lasix, wt down, stable bmp. Con' t same. -05/30: wt unchanged today and cr up, likely at baseline wt now. will dc iv lasix and start po 40 bid tomorrow. -05/31: cont po lasix for maintenance new diagnosis of afib, presented in rvr. - anterolateral st depressions when in RVR. no angina, neg troponins. outpt elective stress test for risk stratification. - HRs suboptimal here on toprol 50 bid. BPs trended down on 75 bid so changed back to 50 bid on 05/24. + h/o depression per PMD-monitor for worsening depressive sx's on toprol. - 05/25: not responding well to metoprolol alone, added diltiazem 60 TID. if bp trends down, decr dose of metoprolol (ditto if any signs of depression worsening) - 05/26: responding well to diltiazem, sbp's stable in the 110's. Will further uptitrate diltiazem to 90 tid and wean toprol to 25 bid. -05/27-: rate controlled on dilt/toprol RE AC: - 05/25: CHADS-VASC = 4 (>5...first time chf here most likely sec to rapid afib) . pt would benefit from AC--however she is not a candidate for AC at the present time in light of: (a) acute on chronic (longstanding) anemia here, with prior NSAID-induced gastritis, and ongoing daily (high dose) NSAID use; (b) likely UGIB (stool occult blood +); and (c) pt refusing GI rec for rpt EGD prior to initiating AC. She also refused LA appendage closure (Watchman device) b/c does not want any invasive procedures. Therefore, there are no effective stroke prevention options available to this pt which are safe to employ. (would not rec ASA 81 given very limited efficacy for afib stroke prevention, and hi risk of worsening NSAID-induced UGIB source.) Dr. Lackey d/w patient/family again 05/25 - est'd 4%/year risk of CVA (vs <1% if on AC), and the above options but she reiterates she will not pursue any invasive procedures and prefers to accept this stroke risk. do not recommend use of NOAC at the moment, in line with pt wishes to avoid procedures and hospitalization, given high probability of acutely worsening her anemia and/or causing severe bleeding. she states that she intends to discontinue all NSAID use (back pain tolerable). recommend ? intensive PPI (per GI) and if H/H remain stable over next 6-8 wks, and rpt stool is negative for occult blood at that time, ? can try NOAC with continued prophylactic PPI. 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 routine outpatient surveillance. angela, - cr up a bit, possibly from iv lasix, trend now that on po lasix
--- NOTE | 2017-05-31 12:14 | PN ---
Progress Note (short form) - Note Progress Note: Appears comfortable on NC O2. Cough is improved. No CP or SOB. Intake & Output 05/28/17 05/29/17 05/30/17 05/31/17 23:59 23:59 23:59 23:59 Intake Total 1421 253 218 200 Output Total 1900 3300 1750 350 Balance -479 -3047 -1532 -150 Weight 180 lb 6 oz 176 lb 4 oz 177 lb 2 oz 177 lb Last Vital Signs Temp Pulse Resp BP Pulse Ox 98.1 F 84 20 108/53 95 05/31/17 07:00 05/31/17 09:47 05/31/17 09:47 05/31/17 09:47 05/30/17 22:00 Active Medications Diltiazem HCl (Cardizem -) 90 mg PO TID [facility] Last Admin: 05/31/17 05:52 Dose: 90 mg Ferrous Sulfate (Feosol -) 325 mg PO BIDWM [facility] Last Admin: 05/31/17 10:27 Dose: 325 mg Furosemide (Lasix -) 40 mg PO BID@0600,1400 [facility] Last Admin: 05/31/17 05:52 Dose: 40 mg Guaifenesin (Robitussin -) 10 ml PO Q6H PRN PRN Reason: COUGH Last Admin: 05/31/17 05:51 Dose: 10 ml Heparin Sodium (Porcine) (Heparin -) 1,000 unit IVPUSH PRN PRN PRN Reason: Heparin Heparin Sodium (Porcine) (Heparin -) 5,000 unit IVPUSH PRN PRN PRN Reason: Heparin Heparin Sodium/Dextrose (Heparin Infusion -) 25,000 units in 500 mls @ 20 mls/ hr IVPB TITR TRES; 1,000 UNITS/HR PRN Reason: Protocol Last Admin: 05/31/17 10:29 Dose: 900 units/hr, 18 mls/hr Metoprolol Succinate (Toprol Xl -) 25 mg PO BID [facility] Last Admin: 05/31/17 10:27 Dose: 25 mg Pantoprazole Sodium (Protonix -) 40 mg PO DAILY [facility] Last Admin: 05/31/17 10:28 Dose: 40 mg Polyethylene Glycol (Miralax (For Daily Use) -) 17 gm PO BID PRN PRN Reason: CONSTIPATION Potassium Chloride (K-Dur -) 20 meq PO BID [facility] Last Admin: 05/31/17 10:28 Dose: 20 meq Ranitidine HCl (Zantac -) 150 mg PO BID [facility] Last Admin: 05/31/17 10:28 Dose: 150 mg Constitutional: Yes: NAD Eyes: Yes: WNL HENT: Yes: WNL Neck: Yes: WNL Cardiovascular: Yes: Pulse Irregular, S1, S2 Respiratory: Yes: scattered bibasilar rhonchi Gastrointestinal: Yes: Normal Bowel Sounds, Soft Extremities: Yes: WNL Edema: Yes Labs: Laboratory Results - last 24 hr 05/30/17 05/31/17 05/31/17 11:00 06:30 06:30 WBC 6.9 RBC 4.51 Hgb 9.6 L Hct 31.1 L MCV 69.0 L MCH 21.2 L MCHC 30.7 L RDW 29.6 H Plt Count 164 MPV 9.4 PTT (Actin FS) 50.2 H D Sodium Potassium Chloride Carbon Dioxide Anion Gap BUN Creatinine Random Glucose Calcium Stool Occult Blood Positive 05/31/17 07:45 WBC RBC Hgb Hct MCV MCH MCHC RDW Plt Count MPV PTT (Actin FS) Sodium 140 Potassium 4.6 Chloride 96 L Carbon Dioxide 32 Anion Gap 12 BUN 40 H Creatinine 1.7 H Random Glucose 112 H Calcium 9.1 Stool Occult Blood Problem List - Problems (1) Acute respiratory failure with hypoxia and hypercapnia Code(s): J96.01 - ACUTE RESPIRATORY FAILURE WITH HYPOXIA; J96.02 - ACUTE RESPIRATORY FAILURE WITH HYPERCAPNIA (2) Congestive heart failure (CHF) Code(s): I50.9 - HEART FAILURE, UNSPECIFIED Qualifiers: Qualified Code(s): I50.9 - Heart failure, unspecified (3) Microcytic anemia Code(s): D50.9 - IRON DEFICIENCY ANEMIA, UNSPECIFIED (4) New onset a-fib Code(s): I48.91 - UNSPECIFIED ATRIAL FIBRILLATION (5) Pneumonia Code(s): J18.9 - PNEUMONIA, UNSPECIFIED ORGANISM Qualifiers: Qualified Code(s): J18.1 - Lobar pneumonia, unspecified organism (6) Bilateral pleural effusion Code(s): J90 - PLEURAL EFFUSION, NOT ELSEWHERE CLASSIFIED Assessment/Plan IMP ACUTE HYPOXEMIC/HYPERCAPNEIC RESPIRATORY FAILURE IMPROVING CHF CLINICALLY IMPROVING BILATERAL PLEURAL EFFUSIONS TRANSUDATE RAPID AFIB DIASTOLIC HF ANEMIA NATHALIE PLAN LASIX AC NIPPV PRN O2 NORMAL TRANSFUSION THRESHOLD MONITOR H+H Dr Pedersen
--- NOTE | 2017-05-31 12:27 | PN ---
Progress Note (short form) - Note Progress Note: Subjective: The patient was seen and examined at the bedside, she denies any complaints at this time Current Medications Generic Name Dose Route Start Last Admin Trade Name Veda PRN Reason Stop Dose Admin Diltiazem HCl 90 mg 05/26/17 22:00 05/31/17 05:52 Cardizem - PO 90 mg TID TRES Administration Ferrous Sulfate 325 mg 05/23/17 17:30 05/31/17 10:27 Feosol - PO 325 mg BIDWM TRES Administration Furosemide 40 mg 05/31/17 06:00 05/31/17 05:52 Lasix - PO 40 mg BID@0600,1400 TRES Administration Guaifenesin 10 ml 05/30/17 06:10 05/31/17 05:51 Robitussin - PO 10 ml Q6H PRN Administration COUGH Heparin Sodium (Porcine) 1,000 unit 05/29/17 00:51 Heparin - IVPUSH PRN PRN Heparin Heparin Sodium (Porcine) 5,000 unit 05/29/17 00:51 Heparin - IVPUSH PRN PRN Heparin Heparin Sodium/Dextrose 25,000 units in 500 mls @ 20 mls/hr 05/26/17 20:00 10:29 Heparin Infusion - IVPB 900 units/hr TITR TRES 18 mls/hr Protocol Administration 1,000 UNITS/HR Metoprolol Succinate 25 mg 05/26/17 22:00 05/31/17 10:27 Toprol Xl - PO 25 mg BID TRES Administration Pantoprazole Sodium 40 mg 05/30/17 10:00 05/31/17 10:28 Protonix - PO 40 mg DAILY TRES Administration Polyethylene Glycol 17 gm 05/28/17 13:54 Miralax (For Daily Use) - PO BID PRN CONSTIPATION Potassium Chloride 20 meq 05/25/17 10:45 05/31/17 10:28 K-Dur - PO 20 meq BID TRES Administration Ranitidine HCl 150 mg 05/23/17 11:19 05/31/17 10:28 Zantac - PO 150 mg BID TRES Administration Objective: Vital Signs Period Temp Pulse Resp BP Sys/Marino Pulse Ox Last 24 Hr 97.5 F-98.7 F 73-89 18-20 95-125/47-73 95-95 Physical Exam: General: NAD, A&Ox3 Lungs: Decreased breath sounds bilaterally Heart: Irregular rate, S1S2 Abd: Soft, non-tender, non-distended. Normoactive bowel sounds Ext: Warm, well-perfused. 2+ DP/PT bilaterally Neuro: CN 2-12 intact CBCD WBC 6.9 K/mm3 (4.0-10.0) 05/31/17 06:30 RBC 4.51 M/mm3 (3.60-5.2) 05/31/17 06:30 Hgb 9.6 GM/dL (10.7-15.3) L 05/31/17 06:30 Hct 31.1 % (32.4-45.2) L 05/31/17 06:30 MCV 69.0 fl (80-96) L 05/31/17 06:30 MCHC 30.7 g/dl (32.0-36.0) L 05/31/17 06:30 RDW 29.6 % (11.6-15.6) H 05/31/17 06:30 Plt Count 164 K/MM3 (134-434) 05/31/17 06:30 MPV 9.4 fl (7.5-11.1) 05/31/17 06:30 CMP Sodium 140 mmol/L (136-145) 05/31/17 07:45 Potassium 4.6 mmol/L (3.5-5.1) 05/31/17 07:45 Chloride 96 mmol/L (98-107) L 05/31/17 07:45 Carbon Dioxide 32 mmol/L (21-32) 05/31/17 07:45 Anion Gap 12 (8-16) 05/31/17 07:45 BUN 40 mg/dL (7-18) H 05/31/17 07:45 Creatinine 1.7 mg/dL (0.55-1.02) H 05/31/17 07:45 Creat Clearance w eGFR 30.63 (>60) 05/30/17 06:00 Random Glucose 112 mg/dL (74-106) H 05/31/17 07:45 Calcium 9.1 mg/dL (8.5-10.1) 05/31/17 07:45 Total Bilirubin 0.8 mg/dL (0.2-1.0) 05/30/17 06:00 AST 13 U/L (15-37) L 05/30/17 06:00 ALT 13 U/L (12-78) 05/30/17 06:00 Alkaline Phosphatase 87 U/L (45-117) 05/30/17 06:00 Total Protein 5.6 g/dl (6.4-8.2) L 05/30/17 06:00 Albumin 2.7 g/dl (3.4-5.0) L 05/30/17 06:00 CARDIAC ENZYMES Creatine Kinase 14 IU/L (26-192) L 05/21/17 07:40 Troponin I < 0.03 ng/ml (0.00-0.06) 05/21/17 07:40 Microbiology 05/26/17 10:30 Pleural Fluid AFB Smear Concentration - Final 05/26/17 10:30 Pleural Fluid Mycobacterial Culture - Preliminary 05/26/17 10:30 Pleural Fluid Gram Stain - Final 05/26/17 10:30 Pleural Fluid Body Fluid Culture - Final NO GROWTH OF AEROBIC ORGANISMS AFTER 48 HOURS INCUBATION 05/26/17 10:30 Pleural Fluid Anaerobic Culture - Final NO ANAEROBES WERE ISOLATED 05/26/17 10:30 Pleural Fluid JAYCE Preparation - Preliminary 05/26/17 10:30 Pleural Fluid Fungal Culture - Preliminary 05/20/17 04:57 Blood - Peripheral Venous Blood Culture - Final NO GROWTH AFTER 5 DAYS INCUBATION 05/20/17 04:57 Blood - Peripheral Venous Blood Culture - Final NO GROWTH AFTER 5 DAYS INCUBATION 05/20/17 06:45 Urine For Antigen Detection Legionella Antigen - Final 05/20/17 06:45 Urine For Antigen Detection Streptococcus pneumoniae Antigen (M - Final 05/20/17 09:25 Urine - Urine Clean Catch Urine Culture - Final Assessment: This is an 87 year old female with PMHx of HTN, renal calculi, iron deficiency anemia, who presented to the ED with one month or shortness of breath and non-productive cough Plan: 1) New onset a.fib with RVR - On Heparin gtt, plan is to discontinue all anticoagulation on discharge. Will monitor off A/C as outpatient for 6 week. If Hgb remains stable during that time , then cardiology will consider starting NOAC. Discussed plan with Dr. Spencer - Toprol XL 25mg po bid - Appreciate hematology consult regarding switching patient to NOAC - Appreciate cardiology consult 2) Stool for occult blood positive - In the setting of iron deficiency anemia - Patient continuing to refuse GI workup - S/p 2U PRBC 05/21 - Appreciate GI consult 3) Acute diastolic CHF - Likely 2/2 to diastolic dysfunction in setting of rapid a.fib - Lasix switched to 40mg po bid - Strict I&O - Daily weights 4) NATHALIE - Worsening renal function likely 2/2 IV lasix - Switched lasix to po today - Trend Cr - Discussed with Dr. Raman who will re-evaluate the patient 5) B/l pleural effusions - S/p thoracentesis on 05/26 - Breathing improved - F/u pre/post O2 to determine if the patient will need home O2 6) F/E/N: - Monitor electrolytes - Regular diet 7) Prophylaxis: - On Heparin gtt - Protonix - PT 8) Dispo: - Requires continued inpatient care CODE STATUS: FULL CODE Visit type - Emergency Visit Emergency Visit: Yes ED Registration Date: 05/20/17 Care time: The patient presented to the Emergency Department on the above date and was hospitalized for further evaluation of their emergent condition. - New Patient This patient is new to me today: No - Critical Care Critical Care patient: No
[2017-06-01] MEDS: FUROSEMIDE 40 MG TABLET (FP) PO SCH (06:28)
[2017-06-01] MEDS: dilTIAZem HCL 30 MG TABLET (FP) PO SCH ×3 (06:28→21:26)
[2017-06-01 08:35] LABS: ANION GAP 12 (8-16); BLOOD UREA NITROGEN 40 mg/dL (7-18); CALCIUM 9.6 mg/dL (8.5-10.1); CHLORIDE 96 mmol/L (98-107); CO2 32 mmol/L (21-32); GLUCOSE,RANDOM 103 mg/dL (74-106); POTASSIUM 4.5 mmol/L (3.5-5.1); SODIUM 140 mmol/L (136-145)
[2017-06-01 08:38] LABS: ALK PHOS 86 U/L (45-117); BILIRUBIN,TOTAL 0.6 mg/dL (0.2-1.0); CREATININE 1.7 mg/dL (0.55-1.02); SGOT/AST 12 U/L (15-37); SGPT/ALT 13 U/L (12-78); TOT PROT 5.9 g/dl (6.4-8.2)
[2017-06-01] MEDS: FERROUS SO4 325 MG TABLET (FP) PO SCH ×2 (08:49→16:57)
[2017-06-01] MEDS: POTASSIUM CHLORIDE TABS 10 MEQ TABLET.ER (FP) PO SCH (09:17)
[2017-06-01] MEDS: HEPARIN NA (PORCINE) 5,000 UNITS/ML 1ML VIAL IVPUSH PRN ×2 (09:17→17:29)
[2017-06-01] MEDS: RANITIDINE HCL 150 MG TABLET (FP) PO SCH ×2 (09:18→21:26)
[2017-06-01] MEDS: metoPROLOL SUCCINATE 25 MG TAB.SR.24H (FP) PO SCH ×2 (09:18→21:26)
[2017-06-01] MEDS: PANTOPRAZOLE 40 MG TABLET (FP) PO SCH (09:18)
--- NOTE | 2017-06-01 12:51 | PN ---
Progress Note (short form) - Note Progress Note: PULMONARY Denies shortness of breath, chest pain or cough. Last Vital Signs Temp Pulse Resp BP Pulse Ox 97.5 F L 83 18 105/59 95 06/01/17 10:00 06/01/17 10:00 06/01/17 10:00 06/01/17 10:00 06/01/17 09:00 Gen: NAD at rest Heart: irregular Lung: decreased breath sounds at the bases Abd: soft, nontender Ext: no edema CBC, BMP 05/31/17 06:30 06/01/17 07:30 Active Medications Diltiazem HCl (Cardizem -) 90 mg PO TID [facility] Last Admin: 06/01/17 06:28 Dose: 90 mg Ferrous Sulfate (Feosol -) 325 mg PO BIDWM [facility] Last Admin: 06/01/17 08:49 Dose: 325 mg Furosemide (Lasix -) 40 mg PO BID@0600,1400 [facility] Last Admin: 06/01/17 06:28 Dose: 40 mg Guaifenesin (Robitussin -) 10 ml PO Q6H PRN PRN Reason: COUGH Last Admin: 05/31/17 05:51 Dose: 10 ml Heparin Sodium (Porcine) (Heparin -) 1,000 unit IVPUSH PRN PRN PRN Reason: Heparin Last Admin: 06/01/17 09:17 Dose: 1,000 unit Heparin Sodium (Porcine) (Heparin -) 5,000 unit IVPUSH PRN PRN PRN Reason: Heparin Heparin Sodium/Dextrose (Heparin Infusion -) 25,000 units in 500 mls @ 20 mls/ hr IVPB TITR TRES; 1,000 UNITS/HR PRN Reason: Protocol Last Titration: 06/01/17 09:17 Dose: 1,000 units/hr, 20 mls/hr Metoprolol Succinate (Toprol Xl -) 25 mg PO BID [facility] Last Admin: 06/01/17 09:18 Dose: 25 mg Pantoprazole Sodium (Protonix -) 40 mg PO DAILY [facility] Last Admin: 06/01/17 09:18 Dose: 40 mg Polyethylene Glycol (Miralax (For Daily Use) -) 17 gm PO BID PRN PRN Reason: CONSTIPATION Potassium Chloride (K-Dur -) 20 meq PO BID [facility] Last Admin: 06/01/17 09:17 Dose: 20 meq Ranitidine HCl (Zantac -) 150 mg PO BID TRES Last Admin: 06/01/17 09:18 Dose: 150 mg A/P Acute Diastolic Heart Failure New Onset Atrial Fibrillation Pleural Effusion s/p thoracentesis - Transudate HTN Acute Kidney Injury - continue lasix - monitor urine output, creatinine - repeat CXR today - rate control - continue anticoagulation - can d/c from pulmonary standpoint pending CXR remains improved
--- NOTE | 2017-06-01 14:47 | PN ---
Progress Note (short form) - Note Progress Note: Renal Follow up for NATHALIE Pt seen and examined at the bedside was asked to see pt again because of worsening renal function no sob, chest pain, abd pain, N/V/D Sob is improved, leg edema is improved Vital Signs Temperature 97.5 F L 06/01/17 10:00 Pulse Rate 83 06/01/17 10:00 Respiratory Rate 18 06/01/17 10:00 Blood Pressure 105/59 06/01/17 10:00 O2 Sat by Pulse Oximetry (%) 95 06/01/17 09:00 Intake & Output 05/29/17 05/30/17 05/31/17 06/01/17 23:59 23:59 23:59 23:59 Intake Total 253 218 656 336 Output Total 3300 1750 1550 400 Balance -3047 -1532 -894 -64 Weight 79.946 kg 80.343 kg 80.286 kg 79.492 kg NAD Dec BS at lung bases RRR soft NT/ND no bladder distension No LE edema CBC, BMP 05/31/17 06:30 06/01/17 07:30 Current Medications Diltiazem HCl (Cardizem -) 90 mg PO TID [facility] Last Admin: 06/01/17 13:45 Dose: 90 mg Ferrous Sulfate (Feosol -) 325 mg PO BIDWM [facility] Last Admin: 06/01/17 08:49 Dose: 325 mg Furosemide (Lasix -) 40 mg PO DAILY [facility] Guaifenesin (Robitussin -) 10 ml PO Q6H PRN PRN Reason: COUGH Last Admin: 05/31/17 05:51 Dose: 10 ml Heparin Sodium (Porcine) (Heparin -) 1,000 unit IVPUSH PRN PRN PRN Reason: Heparin Last Admin: 06/01/17 09:17 Dose: 1,000 unit Heparin Sodium (Porcine) (Heparin -) 5,000 unit IVPUSH PRN PRN PRN Reason: Heparin Heparin Sodium/Dextrose (Heparin Infusion -) 25,000 units in 500 mls @ 20 mls/ hr IVPB TITR TRES; 1,000 UNITS/HR PRN Reason: Protocol Last Titration: 06/01/17 09:17 Dose: 1,000 units/hr, 20 mls/hr Metoprolol Succinate (Toprol Xl -) 25 mg PO BID [facility] Last Admin: 06/01/17 09:18 Dose: 25 mg Pantoprazole Sodium (Protonix -) 40 mg PO DAILY [facility] Last Admin: 06/01/17 09:18 Dose: 40 mg Polyethylene Glycol (Miralax (For Daily Use) -) 17 gm PO BID PRN PRN Reason: CONSTIPATION Ranitidine HCl (Zantac -) 150 mg PO BID [facility] Last Admin: 06/01/17 09:18 Dose: 150 mg ASSESSMENT AND PLAN: 87 year old woman with PMhx of Hypertension, Urethral stenting (? unknown if pt had stones) who presented with complaints of cough and admitted for HF and found tos have worsening renal function as inpatient. #Acute Renal Failure in setting of IV diuresis for CHF agree with decreasing Lasix dose and changing to oral pills would recommend trending renal function with lower dose of diuretics if BUN/Cr w/o any improvement may need to further titrate down dose check UA, FeUrea Low salt diet check daily weights no clinical symptoms that could be suspicous for obstruction Chano Raman DO
--- NOTE | 2017-06-01 15:30 | PN ---
Physical Exam: SUBJECTIVE: Patient seen and examined. Does not feel well today, vomited when ambulating with physical therapy. OBJECTIVE: mild NATHALIE 1.7, will trend one more day May need PT Repeat Chest xray pending Vital Signs Period Temp Pulse Resp BP Sys/Marino Pulse Ox Last 24 Hr 97.4 F-97.9 F 81-90 18-18 105-110/57-73 92-95 GENERAL: The patient is awake, alert, and fully oriented, in no acute distress. HEAD: Normal with no signs of trauma. EYES: PERRL, extraocular movements intact, sclera anicteric, conjunctiva clear. No ptosis. ENT: Ears normal, nares patent, oropharynx clear without exudates, moist mucous membranes. NECK: Trachea midline, full range of motion, supple. LUNGS: decreased breath sounds bilaterally HEART: irregular ABDOMEN: Soft, nontender, nondistended, normoactive bowel sounds, no guarding, NEUROLOGICAL: Normal speech, gait not observed. PSYCH: Normal mood, normal affect. Laboratory Results - last 24 hr 06/01/17 06/01/17 07:30 07:30 PTT (Actin FS) 45.3 H Sodium 140 Potassium 4.5 Chloride 96 L Carbon Dioxide 32 Anion Gap 12 BUN 40 H Creatinine 1.7 H Creat Clearance w eGFR 28.56 Random Glucose 103 Calcium 9.6 Total Bilirubin 0.6 D AST 12 L ALT 13 Alkaline Phosphatase 86 Total Protein 5.9 L Albumin 3.0 L Active Medications Generic Name Dose Route Start Last Admin Trade Name Freq PRN Reason Stop Dose Admin Diltiazem HCl 90 mg 05/26/17 22:00 06/01/17 13:45 Cardizem - PO 90 mg TID TRES Administration Ferrous Sulfate 325 mg 05/23/17 17:30 06/01/17 08:49 Feosol - PO 325 mg BIDWM TRES Administration Furosemide 40 mg 06/02/17 10:00 Lasix - PO DAILY TRES Guaifenesin 10 ml 05/30/17 06:10 05/31/17 05:51 Robitussin - PO 10 ml Q6H PRN Administration COUGH Heparin Sodium (Porcine) 1,000 unit 05/29/17 00:51 06/01/17 09:17 Heparin - IVPUSH 1,000 unit PRN PRN Administration Heparin Heparin Sodium (Porcine) 5,000 unit 05/29/17 00:51 Heparin - IVPUSH PRN PRN Heparin Heparin Sodium/Dextrose 25,000 units in 500 mls @ 20 mls/hr 05/26/17 20:00 09:17 Heparin Infusion - IVPB 1,000 units/hr TITR TRES 20 mls/hr Protocol Titration 1,000 UNITS/HR Metoprolol Succinate 25 mg 05/26/17 22:00 06/01/17 09:18 Toprol Xl - PO 25 mg BID TRES Administration Pantoprazole Sodium 40 mg 05/30/17 10:00 06/01/17 09:18 Protonix - PO 40 mg DAILY TRES Administration Polyethylene Glycol 17 gm 05/28/17 13:54 Miralax (For Daily Use) - PO BID PRN CONSTIPATION Ranitidine HCl 150 mg 05/23/17 11:19 06/01/17 09:18 Zantac - PO 150 mg BID TRES Administration ASSESSMENT/PLAN: Patient is a 87 year old female with a significant past medical history of hypertension, renal calcili and iron deficiency anemia. Patient lives at home with her son and was brought in by her family after she was noted to have shortness of breath x 1 month with a non productive cough. Card: New onset atrial fibrillation with RVR, now controlled On Metoprol xl 25mg BID, Cardizem 90mg TID On heparin drip Not candidate at this time for NOAC due to hx of GI bleed and chronic NSAID use at home Patient was being evaluated by GI for a possible EGD and colonoscopy but pt refusing workup Will continue the heparin drip inpatient Discussed with cardiology, pt to follow up outpatient for for assured stability of hmg/hct for a few weeks and have negative occult blood in stools prior to starting on anticoag. Protonix 40mg daily should continue as outpatient Acute on diatolic heart failure Patient s/p right thoracentesis on 05/26/17 with 220 cc of fluid removed Breathing is better, on supplemental oxygen On Lasix 40mg IV BID Weight improving with diuretics Daily weights, monitor output Pulmonary: Hypoxia/hypercapnic respiratory failure On bipap s/p thora. Pulmonary following Renal following NATHALIE Creat 1.7 Lasix changed to PO from IV Monitor with a.m. labs Renal following Heme: Iron def anemia s/p 2 unit of prbc hmg/hct stable Monitor daily On iron supplementation Refusing GI workup. F.E.N. Fluids: PO adequate Electrolytes: monitor Nutrition: low salt Prophy: Heparin drip, Protonix Full code.
--- NOTE | 2017-06-01 16:51 | PN ---
Progress Note (short form) - Note Progress Note: Chief Complaint: afib, chf History of Present Illness: cough improved no sob no palpitations no cp no dizziness. no improvement in creatinine. cxr clear. no cigs Current Medications Diltiazem HCl (Cardizem -) 90 mg PO TID [facility] Last Admin: 06/01/17 13:45 Dose: 90 mg Ferrous Sulfate (Feosol -) 325 mg PO BIDWM [facility] Last Admin: 06/01/17 08:49 Dose: 325 mg Furosemide (Lasix -) 40 mg PO DAILY [facility] Guaifenesin (Robitussin -) 10 ml PO Q6H PRN PRN Reason: COUGH Last Admin: 05/31/17 05:51 Dose: 10 ml Heparin Sodium (Porcine) (Heparin -) 1,000 unit IVPUSH PRN PRN PRN Reason: Heparin Last Admin: 06/01/17 09:17 Dose: 1,000 unit Heparin Sodium (Porcine) (Heparin -) 5,000 unit IVPUSH PRN PRN PRN Reason: Heparin Heparin Sodium/Dextrose (Heparin Infusion -) 25,000 units in 500 mls @ 20 mls/ hr IVPB TITR TRES; 1,000 UNITS/HR PRN Reason: Protocol Last Titration: 06/01/17 09:17 Dose: 1,000 units/hr, 20 mls/hr Metoprolol Succinate (Toprol Xl -) 25 mg PO BID [facility] Last Admin: 06/01/17 09:18 Dose: 25 mg Pantoprazole Sodium (Protonix -) 40 mg PO DAILY [facility] Last Admin: 06/01/17 09:18 Dose: 40 mg Polyethylene Glycol (Miralax (For Daily Use) -) 17 gm PO BID PRN PRN Reason: CONSTIPATION Ranitidine HCl (Zantac -) 150 mg PO BID [facility] Last Admin: 06/01/17 09:18 Dose: 150 mg - Objective Vital Signs: Vital Signs - 24 hr 05/31/17 05/31/17 05/31/17 17:19 20:26 21:00 Temperature 97.9 F 97.7 F Pulse Rate 83 90 Respiratory 18 18 Rate Blood Pressure 110/61 107/73 O2 Sat by Pulse 92 L Oximetry (%) 06/01/17 06/01/17 06/01/17 00:00 06:00 09:00 Temperature 97.4 F L 97.7 F Pulse Rate 81 84 Respiratory 18 18 Rate Blood Pressure 108/64 106/57 O2 Sat by Pulse 95 Oximetry (%) 06/01/17 06/01/17 10:00 14:00 Temperature 97.5 F L 97.4 F L Pulse Rate 83 83 Respiratory 18 18 Rate Blood Pressure 105/59 110/66 O2 Sat by Pulse Oximetry (%) Intake & Output 05/30/17 05/31/17 06/01/17 06/02/17 07:59 07:59 07:59 07:59 Intake Total 418 792 Output Total 2750 1450 1600 300 Balance -2750 -1032 -808 -300 Weight 177 lb 2 oz 177 lb 175 lb 4 oz Constitutional: No Distress, Eyes: Yes: Conjunctiva Clear Cardiovascular: Yes: Pulse Irregular, 2/6 sys murmur at apex. Respiratory: Yes: cta bl nl eff No: Rales, Rhonchi, Wheezes Gastrointestinal: Yes: Normal Bowel Sounds, Soft Extremities: Yes: Other (warm) Edema: no le edema Neurological: Yes: Alert, Oriented no jaundice diaphoresis. Labs: CBC, BMP 05/31/17 06:30 06/01/17 07:30 EKG: Other (tele: rate controlled Afib ) echo 05/2017: nl lv. mild rve, nl rv fcn. mil-mod mr, sev tr, mild-mod ar. nl rvsp chest ct images and report reviewed. notable for bilateral effusions and 4.6 thoracic dilation/aneurysm. see emr for details. cxr 06/01: resolution of pulmonary edema Assessment/Plan 87 yo with h/o htn on norvasc, fe deficiency anemia, nsaid induced gastritis, OA , anxiety/depression and prior ureteral stent here with dry cough for a month found with evidence of CHF, rapid afib and possible URI/?pna. acute diastolic chf: -CHF may be from diastolic dysfunction in setting of rapid afib. Also with severe tr and mild rve (nl fn), though reportedly normal RV syst pressure on echo. -05/23: cont iv lasix for now. appears to be net negative with good uop and cr improving on current regimen, but weight increased. Will repeat standing weight and reassess tomorrow. - 05/24: cr stable, weight coming down, symptomatically improving. con't current regimen - 05/25: wt trend down 196 to 191 here. renal fxn stable. receiving lasix 40 iv qd. cxr 05/24 with worsening effusions +/- lower zone congestion. rales on exam-- incr lasix to 40 iv bid today. - 05/26: ongoing clinical improvement on bid lasix, stable bmp. Con't same. Also s/p thora today. - 05/27-: ongoing clinical improvement on bid lasix, wt down, stable bmp. Con' t same. -05/30: wt unchanged today and cr up, likely at baseline wt now. will dc iv lasix and start po 40 bid tomorrow. -05/31: cont po lasix for maintenance - 06/01: Cr not improving, CXR shows resolution of pulmonary edema --> will hold afternoon lasix dose today and decrease lasix to 20 mg/daily tomorrow. ( instead of 40 bid). monitor new diagnosis of afib, presented in rvr. - anterolateral st depressions when in RVR. no angina, neg troponins. outpt elective stress test for risk stratification. - HRs suboptimal here on toprol 50 bid. BPs trended down on 75 bid so changed back to 50 bid on 05/24. + h/o depression per PMD-monitor for worsening depressive sx's on toprol. - 05/25: not responding well to metoprolol alone, added diltiazem 60 TID. if bp trends down, decr dose of metoprolol (ditto if any signs of depression worsening) - 05/26: responding well to diltiazem, sbp's stable in the 110's. Will further uptitrate diltiazem to 90 tid and wean toprol to 25 bid. -05/27-: rate controlled on dilt/toprol RE AC: - 05/25: CHADS-VASC = 4 (>5...first time chf here most likely sec to rapid afib) . pt would benefit from AC--however she is not a candidate for AC at the present time in light of: (a) acute on chronic (longstanding) anemia here, with prior NSAID-induced gastritis, and ongoing daily (high dose) NSAID use; (b) likely UGIB (stool occult blood +); and (c) pt refusing GI rec for rpt EGD prior to initiating AC. She also refused LA appendage closure (Watchman device) b/c does not want any invasive procedures. Therefore, there are no effective stroke prevention options available to this pt which are safe to employ. (would not rec ASA 81 given very limited efficacy for afib stroke prevention, and hi risk of worsening NSAID-induced UGIB source.) Dr. Lackey d/w patient/family again 05/25 - est'd 4%/year risk of CVA (vs <1% if on AC), and the above options but she reiterates she will not pursue any invasive procedures and prefers to accept this stroke risk. do not recommend use of NOAC at the moment, in line with pt wishes to avoid procedures and hospitalization, given high probability of acutely worsening her anemia and/or causing severe bleeding. she states that she intends to discontinue all NSAID use (back pain tolerable). recommend ? intensive PPI (per GI) and if H/H remain stable over next 6-8 wks, and rpt stool is negative for occult blood at that time, ? can try NOAC with continued prophylactic PPI. pt advised she should have f/u with us to monitor this situtation and continue discussion in future HTN: - 06/01 bp trending down. decreasing diuretic regimen as mentioned. consider need to decrease toprol dose, if no improvement tomorrow. 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 routine outpatient surveillance. angela, - cr up a bit, possibly from iv lasix, trend now that on po lasix - 06/01: downtitration of diuretic regimen as mentioned, con't to monitor
--- NOTE | 2017-06-01 17:00 | CON.PSY ---
Psychiatry Consult Chief Complaint: I have been deptressed since losing my HB three years ago. I also have problems with my kids. I am alone. My niece takes Prozac that seems to help her. Symptoms: reports: Depressed Mood, Anhedonia - Previous Psychiatric Treatment Outpatient: None Inpatient: None - Previous Substance Abuse Treatment Outpatient: None Inpatient: None - Current Medications Current Medications: Active Medications Diltiazem HCl (Cardizem -) 90 mg PO TID [facility] Last Admin: 06/01/17 13:45 Dose: 90 mg Ferrous Sulfate (Feosol -) 325 mg PO BIDWM [facility] Last Admin: 06/01/17 08:49 Dose: 325 mg Furosemide (Lasix -) 40 mg PO DAILY [facility] Guaifenesin (Robitussin -) 10 ml PO Q6H PRN PRN Reason: COUGH Last Admin: 05/31/17 05:51 Dose: 10 ml Heparin Sodium (Porcine) (Heparin -) 1,000 unit IVPUSH PRN PRN PRN Reason: Heparin Last Admin: 06/01/17 09:17 Dose: 1,000 unit Heparin Sodium (Porcine) (Heparin -) 5,000 unit IVPUSH PRN PRN PRN Reason: Heparin Heparin Sodium/Dextrose (Heparin Infusion -) 25,000 units in 500 mls @ 20 mls/ hr IVPB TITR TRES; 1,000 UNITS/HR PRN Reason: Protocol Last Titration: 06/01/17 09:17 Dose: 1,000 units/hr, 20 mls/hr Metoprolol Succinate (Toprol Xl -) 25 mg PO BID [facility] Last Admin: 06/01/17 09:18 Dose: 25 mg Pantoprazole Sodium (Protonix -) 40 mg PO DAILY [facility] Last Admin: 06/01/17 09:18 Dose: 40 mg Polyethylene Glycol (Miralax (For Daily Use) -) 17 gm PO BID PRN PRN Reason: CONSTIPATION Ranitidine HCl (Zantac -) 150 mg PO BID [facility] Last Admin: 06/01/17 09:18 Dose: 150 mg - Allergies Allergies: Allergies Allergy/AdvReac Type Severity Reaction Status Date / Time cephalexin monohydrate Allergy Verified 05/20/16 02:01 [From Keflex] - Current Living Status Usual Living Arrangement: Alone - Current Mental Status Evaluation Appearance: Well Groomed Attitude: Cooperative - Affect Affect: Constrictive Appropriateness: Appropriate to Content - Mood Mood: Depressed - Speech/Language Expressive: Coherent - Psychomotor Activity Psychomotor Activity: Slowed - Thought Process Thought Process: Intact - Thought Content Hallucinations: Absent Delusions: Absent - Self Perception Self Perception: No Impairment - Cognition Attention: Alert Orientation: Time Memory, Immediate Recall: Intact Memory, Short Term: 2/3 Memory, Remote with Promptin/3 - Concentration Serial Sevens Intact: No Simple Calculations Intact: No - Abstraction Proverb Interpretation: Intact Judgement: Intact - Insight Insight: Intact - Impulse Control Impulse Control: Good Control - Suicidal Ideation Suicidal Ideation: No - Homicidal Ideation Homicidal Ideation: No Assessment/Plan 1) Prozac 10mg p[o od
[2017-06-01] MEDS: HEPARIN INFUSION - 25,000 UNITS/500 ML INFUS.BAG IVPB SCH (20:00)
--- NOTE | 2017-06-01 22:34 | PN ---
Progress Note (short form) - Note Progress Note: Patient seen and examined Denies any specific c/o Last Vital Signs Temp Pulse Resp BP Pulse Ox 98.3 F 83 18 124/64 95 06/01/17 22:00 06/01/17 22:00 06/01/17 22:00 06/01/17 22:00 06/01/17 21:00 Cor: RSR, No murmurs, No gallops Lungs: Clear to P&A Abd: Soft, Normal bowel sounds, No organomegaly Ext:No significant edema Abnormal Lab Results 06/01/17 06/01/17 06/01/17 07:30 07:30 15:45 PTT (Actin FS) 45.3 H 45.6 H Chloride 96 L BUN 40 H Creatinine 1.7 H AST 12 L Total Protein 5.9 L Albumin 3.0 L 06/01/17 22:20 PTT (Actin FS) 56.5 H Chloride BUN Creatinine AST Total Protein Albumin Home Medication List Medication Instructions Recorded Confirmed Type RX: Amlodipine Besylate [Norvasc -] 5 mg PO DAILY 09/01/12 05/20/17 History Active Medications Generic Name Dose Route Start Last Admin Trade Name Freq PRN Reason Stop Dose Admin Diltiazem HCl 90 mg 05/26/17 22:00 06/01/17 21:26 Cardizem - PO 90 mg TID TRES Administration Ferrous Sulfate 325 mg 05/23/17 17:30 06/01/17 16:57 Feosol - PO 325 mg BIDWM TRES Administration Fluoxetine HCl 10 mg 06/02/17 10:00 Prozac - PO DAILY TRES Furosemide 20 mg 06/02/17 10:00 Lasix - PO DAILY TRES Guaifenesin 10 ml 05/30/17 06:10 05/31/17 05:51 Robitussin - PO 10 ml Q6H PRN Administration COUGH Heparin Sodium (Porcine) 1,000 unit 05/29/17 00:51 06/01/17 17:29 Heparin - IVPUSH 1,000 unit PRN PRN Administration Heparin Heparin Sodium (Porcine) 5,000 unit 05/29/17 00:51 Heparin - IVPUSH PRN PRN Heparin Heparin Sodium/Dextrose 25,000 units in 500 mls @ 20 mls/hr 05/26/17 20:00 23:25 Heparin Infusion - IVPB 1,100 units/hr TITR TRES 22 mls/hr Protocol Titration 1,000 UNITS/HR Metoprolol Succinate 25 mg 05/26/17 22:00 06/01/17 21:26 Toprol Xl - PO 25 mg BID TRES Administration Pantoprazole Sodium 40 mg 05/30/17 10:00 06/01/17 09:18 Protonix - PO 40 mg DAILY TRES Administration Polyethylene Glycol 17 gm 05/28/17 13:54 Miralax (For Daily Use) - PO BID PRN CONSTIPATION Ranitidine HCl 150 mg 05/23/17 11:19 06/01/17 21:26 Zantac - PO 150 mg BID TRES Administration A/P 87 y/o with Fe def anemia in the setting of GIB ( occult ) Afib w/ RVR High CHADsVasc Score Dose IV iron today. Pt continues to refuse GI procedures on hep drip now, For consideration of NOACs for Afib on ferrous sulfate PO monitor CBC discussed with son at bedside
[2017-06-02] MEDS: dilTIAZem HCL 30 MG TABLET (FP) PO SCH (05:53)
[2017-06-02 09:01] LABS: URINE APPEARANCE CLEAR; URINE BILIRUBIN NEGATIVE (NEGATIVE); URINE BLOOD NEGATIVE (NEGATIVE); URINE COLOR LTYELLOW; URINE GLUCOSE (UA) NEGATIVE (NEGATIVE); URINE KETONE NEGATIVE (NEGATIVE); URINE NITRITE NEGATIVE (NEGATIVE); URINE PROTEIN NEGATIVE (NEGATIVE); URINE UROBILINOGEN NEGATIVE mg/dL (0.2-1.0)
[2017-06-02 09:08] LABS: URINE LEUK ESTERASE 2+ (NEGATIVE)
[2017-06-02 09:22] LABS: EPI CELLS RARE /HPF (FEW); URINE BACTERIA RARE /hpf (NONE SEEN); URINE HYALINE CAST 5 /lpf; URINE MUCUS RARE
[2017-06-02] MEDS ORDERED: FUROSEMIDE 20 MG TABLET (FP) PO SCH (10:00)
[2017-06-02] MEDS ORDERED: FLUoxetine HCL 10 MG CAPSULE (FP) PO SCH (10:00)
[2017-06-02] MEDS ORDERED: FUROSEMIDE 40 MG TABLET (FP) PO SCH (10:00)
--- NOTE | 2017-06-02 10:09 | DS ---
Physical Exam: SUBJECTIVE: Patient seen and examined OBJECTIVE: Vital Signs STOP LASIX TOMORROW, RESUME ON 06/04/2017 REPEAT LABS WITH YOUR PCP TO ASSURE YOUR KIDNEY FUNCTION STABILIZES Period Temp Pulse Resp BP Sys/Marino Pulse Ox Last 24 Hr 97 F-98.3 F 78-83 18-20 95-124/57-66 95 PHYSICAL EXAM GENERAL: The patient is awake, alert, and fully oriented, in no acute distress. HEAD: Normal with no signs of trauma. EYES: PERRL, extraocular movements intact, sclera anicteric, conjunctiva clear. No ptosis. ENT: Ears normal, nares patent, oropharynx clear without exudates, moist mucous membranes. NECK: Trachea midline, full range of motion, supple. LUNGS: decreased breath sounds bilaterally HEART: irregular ABDOMEN: Soft, nontender, nondistended, normoactive bowel sounds, no guarding, NEUROLOGICAL: Normal speech, gait not observed. PSYCH: Normal mood, normal affect. LABS Laboratory Results - last 24 hr 06/01/17 06/01/17 06/02/17 15:45 22:20 07:00 PTT (Actin FS) 45.6 H 56.5 H Urine Color Ltyellow Urine Appearance Clear Urine pH 6.0 Ur Specific [place] 1.015 Urine Protein Negative Urine Glucose (UA) Negative Urine Ketones Negative Urine Blood Negative Urine Nitrite Negative Urine Bilirubin Negative Urine Urobilinogen Negative Ur Leukocyte Esterase 2+ H Urine WBC (Auto) 75 Urine RBC (Auto) 1 Ur Epithelial Cells Rare Urine Bacteria Rare Hyaline Casts 5 Urine Mucus Rare Ur Random Urea Nitrogn Urine Creatinine 06/02/17 06/02/17 06/02/17 08:11 08:35 08:35 PTT (Actin FS) 47.7 H Urine Color Urine Appearance Urine pH Ur Specific [place] Urine Protein Urine Glucose (UA) Urine Ketones Urine Blood Urine Nitrite Urine Bilirubin Urine Urobilinogen Ur Leukocyte Esterase Urine WBC (Auto) Urine RBC (Auto) Ur Epithelial Cells Urine Bacteria Hyaline Casts Urine Mucus Ur Random Urea Nitrogn 822 Urine Creatinine 106.0 HOSPITAL COURSE: Date of Admission:05/20/17 Date of Discharge: 06/02/17 ASSESSMENT/PLAN: Patient is a 87 year old female with a significant past medical history of hypertension, renal calcili and iron deficiency anemia. Patient lives at home with her son and was brought in by her family after she was noted to have shortness of breath x 1 month with a non productive cough. Card: New onset atrial fibrillation with RVR, now controlled On Metoprol xl 25mg BID, Cardizem 90mg TID On heparin drip Not candidate at this time for NOAC due to hx of GI bleed and chronic NSAID use at home Patient was being evaluated by GI for a possible EGD and colonoscopy but pt refusing workup Will continue the heparin drip inpatient Discussed with cardiology, pt to follow up outpatient for for assured stability of hmg/hct for a few weeks and have negative occult blood in stools prior to starting on anticoag. 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 Pulmonary following Renal following NATHALIE Creat 2.0, STOP LASIX ON 06/03, RESUME ON 06/04 REPEAT LABS WITH PCP Heme: Iron def anemia s/p 2 unit of prbc hmg/hct stable On iron supplementation Refusing GI workup. Minutes to complete discharge: 60 Discharge Summary Reason For Visit: PNEUMONIA/NEW ONSET ATRIAL FIBRILLATION Current Active Problems Acute respiratory failure with hypoxia and hypercapnia (Acute) Bilateral pleural effusion (Acute) Congestive heart failure (CHF) (Acute) Hypertension (Acute) Microcytic anemia (Acute) Microcytic hypochromic anemia (Acute) New onset a-fib (Acute) Pneumonia (Acute) Condition: Stable - Instructions Diet, Activity, Other Instructions: Mrs Mcclelland: You have an appointment on June 08 11:15am with Dr. Currie for follow up appointment. All your prescriptions have been called into your pharmacy. Please take all medications as instructed. Please follow up with Dr. Spencer (wash crew person) for further cardiac workup and possible start of anticoagulation. Please call his office to make an appointment. We have to repeat your lab work to assure that your blood counts are stable before starting you on any anticoagulation. Protonix 40mg daily should continue daily when you are home. PLEASE DO NOT TAKE THE LASIX 20MG ON 06/03/2017 AND RESUME ON 06/04/2017. YOU WILL NEED REPEAT LABS WHEN YOU SEE DR. EVANS/DR CURRIE Please do not take any NSAIDs (Motrin, Ibuprophen, Advil). 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 Please call me with any questions you may have. No [place] [employer] [phone] [facility] Referrals: Emir Ware MD [Staff Physician] - 1 Week () Arsen Evans MD [Primary Care Provider] - 1 Week (June 08 11:15am with Dr. Currie for follow up appointment) Kyle Spencer MD [Staff Physician] - 2 Weeks Chano Raman MD [Staff Physician] - 1 Week Disposition: VNS/HOME HEALTH CARE - Home Medications Comprehensive Discharge Medication List: Ambulatory Orders Diltiazem [Cardizem -] 90 mg PO TID #120 tablet 06/02/17 Ferrous Sulfate [Feosol] 325 mg PO BIDWM #60 ud 06/02/17 Fluoxetine HCl [Prozac -] 10 mg PO DAILY #30 capsule 06/02/17 Furosemide [Lasix -] 20 mg PO DAILY #30 tablet 06/02/17 Metoprolol Succinate [Toprol XL -] 25 mg PO BID #60 tab.sr.24h 06/02/17 Pantoprazole Sodium [Protonix -] 40 mg PO DAILY #30 tablet.ec 06/02/17 Potassium Chloride [K-Dur -] 20 meq PO BID #60 tablet.er 06/02/17 This patient is new to me today: No Emergency Visit: Yes ED Registration Date: 05/20/17 Care time: The patient presented to the Emergency Department on the above date and was hospitalized for further evaluation of their emergent condition. Critical Care patient: No - Discharge Referral Referred to [facility] Med P.C.: No
[2017-06-02] MEDS: RANITIDINE HCL 150 MG TABLET (FP) PO SCH (10:24)
[2017-06-02] MEDS: PANTOPRAZOLE 40 MG TABLET (FP) PO SCH (10:24)
[2017-06-02] MEDS: FERROUS SO4 325 MG TABLET (FP) PO SCH (10:24)
[2017-06-02] MEDS: metoPROLOL SUCCINATE 25 MG TAB.SR.24H (FP) PO SCH (10:24)
[2017-06-02 10:31] VITALS: BP 110/70; PULSE 80; TEMP 98
[2017-06-02 10:51] LABS: BASO % 1.2 % (0-2.0); EOS % 4.9 % (0-4.5); HEMATOCRIT 33.7 % (32.4-45.2); HEMOGLOBIN 10.3 GM/dL (10.7-15.3); LYMPH % 15.5 % (8-40); MCH 21.7 pg (25.7-33.7); MCHC 30.5 g/dl (32.0-36.0); MEAN CELL VOLUME 71.2 fl (80-96); MEAN PLT VOLUME 9.1 fl (7.5-11.1); MONO % 9.8 % (3.8-10.2); NEUT % 68.6 % (42.8-82.8); PLATELET COUNT 161 K/MM3 (134-434); RBC 4.74 M/mm3 (3.60-5.2); WHITE BLOOD COUNT 7.2 K/mm3 (4.0-10.0)
[2017-06-02] MEDS: HEPARIN NA (PORCINE) 5,000 UNITS/ML 1ML VIAL IVPUSH PRN (11:21)
[2017-06-02 11:29] LABS: ALBUMIN 3.1 g/dl (3.4-5.0); ANION GAP 12 (8-16); BILIRUBIN,TOTAL 0.7 mg/dL (0.2-1.0); BLOOD UREA NITROGEN 41 mg/dL (7-18); CALCIUM 9.6 mg/dL (8.5-10.1); CHLORIDE 96 mmol/L (98-107); CO2 30 mmol/L (21-32); GLUCOSE,RANDOM 163 mg/dL (74-106); MAGNESIUM 2.8 mg/dL (1.8-2.4); POTASSIUM 4.2 mmol/L (3.5-5.1); SGOT/AST 17 U/L (15-37); SGPT/ALT 16 U/L (12-78); SODIUM 138 mmol/L (136-145)
[2017-06-02 11:30] LABS: ALK PHOS 90 U/L (45-117)
== END 2017-06-02 12:51 | disposition home health service (06) | DRG 291 ==
LOC: FER 03:58 → FM/S 08:46 → J4S 05-21 17:50
PROVIDERS: ADMIT Internal Medicine; ATTEND Nurse Practitioner Family
PROC: 5A09457 Assistance with Respiratory Ventilation, 24-96 Consecutive Hours, Continuous Positive Airway Pressure (ICD-10-PCS; 2017-05-20)
PROC: 0W993ZX Drainage of Right Pleural Cavity, Percutaneous Approach, Diagnostic (ICD-10-PCS; 2017-05-21)
PROC: 30233H1 Transfusion of Nonautologous Whole Blood into Peripheral Vein, Percutaneous Approach (ICD-10-PCS; principal; 2017-05-27)
DX: I11.0 Hypertensive heart disease with heart failure (principal); J96.01 Acute respiratory failure with hypoxia; J96.02 Acute respiratory failure with hypercapnia; J90 Pleural effusion, not elsewhere classified; J98.11 Atelectasis; N17.9 Acute kidney failure, unspecified; K92.1 Melena; I50.33 Acute on chronic diastolic (congestive) heart failure; I71.2 Thoracic aortic aneurysm, without rupture; D50.9 Iron deficiency anemia, unspecified; I48.91 Unspecified atrial fibrillation; E87.6 Hypokalemia
CPT/HCPCS: 36415; 36430; 36600; 71045-TC-FY; 71046-TC-FY; 71250-TC; 76775-TC; 76856-TC; 76942; 80048; 80053; 81003; 81015; 82042; 82150; 82272; 82436; 82550; 82570; 82607; 82728; 82803; 82945; 83036; 83540; 83550; 83605; 83615; 83735; 83880; 84100; 84133; 84156; 84157; 84300; 84311; 84436; 84443; 84478; 84484; 84540; 85025; 85027; 85044; 85610; 85730; 86850; 86900; 86901; 86922; 87040; 87070; 87075; 87086; 87102; 87116; 87205; 87206; 87210; 87899; 88108; 88305-TC; 89051; 93005; 93306-TC; 94640; 94660; 94761; 97116-GP; 97161-GP; 99283-25; J1100; J1644; J1756; J7030; P9038; P9058

== ENCOUNTER 2017-06-12 17:54 | Inpatient (IN) | payer OTHER, MEDICARE ==
--- NOTE | 2017-06-12 18:01 | PDOC ---
Rapid Medical Evaluation Time Seen by Provider: 06/12/17 17:56 Medical Evaluation: Allergies Allergy/AdvReac Type Severity Reaction Status Date / Time cephalexin monohydrate Allergy Verified 05/20/16 02:01 [From Keflex] 06/12/17 17:57 The patient presents with a chief complaint of: Feeling weak. Hospitalized recently for pleural effusion with tap. Discharged 10 days ago. Hx of recent transfusion and blood in the stool. Denies pain. I have performed a brief in-person evaluation of this patient; Pertinent physical exam findings: ambulatory, in no respiratory distress. Neurologically intact. Stable vitals I have ordered the following: CBC, CMP, PT/INR, EKG, UA, UC, CXR The patient will proceed to the ED for further evaluation. Discharge Disposition - Referrals Referrals: Arsen Evans MD [Primary Care Provider] - - Patient Instructions - Post Discharge Activity
[2017-06-12 18:11] VITALS: BMI 27.4
[2017-06-12 18:27] LABS: BASO % 0.9 % (0-2.0); EOS % 1.9 % (0-4.5); HEMATOCRIT 34.7 % (32.4-45.2); HEMOGLOBIN 10.8 GM/dL (10.7-15.3); LYMPH % 18.6 % (8-40); MCH 23.7 pg (25.7-33.7); MCHC 31.1 g/dl (32.0-36.0); MEAN CELL VOLUME 76.2 fl (80-96); MEAN PLT VOLUME 9.1 fl (7.5-11.1); MONO % 9.6 % (3.8-10.2); PLATELET COUNT 234 K/MM3 (134-434); RBC 4.56 M/mm3 (3.60-5.2); WHITE BLOOD COUNT 6.4 K/mm3 (4.0-10.0)
[2017-06-12 18:43] LABS: INR 1.08 (0.82-1.09); PROTHROMBIN TIME (PATIENT) 12.2 SEC (9.98-11.88)
[2017-06-12 18:51] LABS: ALBUMIN 3.2 g/dl (3.4-5.0); ANION GAP 7 (8-16); BILIRUBIN,TOTAL 0.5 mg/dL (0.2-1.0); BLOOD UREA NITROGEN 27 mg/dL (7-18); CALCIUM 9.3 mg/dL (8.5-10.1); CHLORIDE 105 mmol/L (98-107); CO2 28 mmol/L (21-32); CREATININE 1.7 mg/dL (0.55-1.02); GLUCOSE,RANDOM 133 mg/dL (74-106); POTASSIUM 4.7 mmol/L (3.5-5.1); SGOT/AST 12 U/L (15-37); SGPT/ALT 12 U/L (12-78); SODIUM 140 mmol/L (136-145); TOT PROT 6.4 g/dl (6.4-8.2)
[2017-06-12 18:52] LABS: ALK PHOS 93 U/L (45-117)
--- NOTE | 2017-06-12 19:36 | PDOC ---
History of Present Illness - General History Source: Patient Exam Limitations: No Limitations <Keny Jones - Last Filed: 06/12/17 21:23> - General History Source: Patient Exam Limitations: No Limitations - History of Present Illness Initial Comments: 06/12/17 23:36 The patient is a 87 year old female, with a significant past medical history of hypertension, congestive heart failure, anemia, recent admission for pneumonia with diagnosis of new onset atrial fibrillation (not on anticoagulation due to history of GI bleed), thoracentesis on 05/26, who presents to the emergency department with, generalized weakness for approx 10 days. The patient states that since her recent discharge from [facility] on 06/02/17 she has felt weak and states that when she walks she feels like she wants to go back to bed and lay down. The patient also states she feels lightheaded when standing up which resolves when she is able to sit down. The patient states she decided to come to the ED today as her generalized weakness has not been improving. The patient states she has been ambulating with a walker since her recent discharge and states she normally is able to walk without one before her recent admission. The patient also states she feels slightly short of breath but states she feels better than she did during her last admission at [place] [facility]. She denies recent fevers, chills, or headache. She denies recent nausea, vomit, diarrhea or constipation. She denies recent dysuria, frequency, urgency or hematuria. She denies recent chest pain. Allergies: cephalexin monohydrate Primary Care Physician: Dr. Arsen Evans Inspector Cold Working: Dr. Hemphill <Alo Ferrer - Last Filed: 06/12/17 23:37> - General Chief Complaint: Weakness Stated Complaint: Weakness Time Seen by Provider: 06/12/17 17:56 Past History - Past Medical History Anemia: Yes Asthma: No Cancer: No Cardiac Disorders: No (pleural effusion,) CVA: No COPD: No CHF: No Dementia: No Diabetes: No GI Disorders: Yes (ANEMIA) Disorders: No HTN: Yes Hypercholesterolemia: No Liver Disease: No Seizures: No Thyroid Disease: No - Surgical History Abdominal Surgery: Yes Appendectomy: Yes Cardiac Surgery: No Cholecystectomy: No Lung Surgery: No Neurologic Surgery: No Orthopedic Surgery: No - Suicide/Smoking/Psychosocial Hx Smoking Status: No Smoking History: Never smoked Have you smoked in the past 12 months: No Number of Cigarettes Smoked Daily: 0 Information on smoking cessation initiated: No Hx Alcohol Use: No Drug/Substance Use Hx: No Substance Use Type: None Hx Substance Use Treatment: No <Keny Jones - Last Filed: 06/12/17 21:23> <Alo Ferrer - Last Filed: 06/12/17 23:37> - Past Medical History Allergies/Adverse Reactions: Allergies Allergy/AdvReac Type Severity Reaction Status Date / Time cephalexin monohydrate Allergy Verified 06/12/17 17:56 [From Keflex] Home Medications: Ambulatory Orders Diltiazem [Cardizem -] 90 mg PO TID #120 tablet 06/02/17 Ferrous Sulfate [Feosol] 325 mg PO BIDWM #60 ud 06/02/17 Fluoxetine HCl [Prozac -] 10 mg PO DAILY #30 capsule 06/02/17 Furosemide [Lasix -] 20 mg PO DAILY #30 tablet 06/02/17 Metoprolol Succinate [Toprol XL -] 25 mg PO BID #60 tab.sr.24h 06/02/17 Pantoprazole Sodium [Protonix -] 40 mg PO DAILY #30 tablet.ec 06/02/17 Potassium Chloride [K-Dur -] 20 meq PO BID #60 tablet.er 06/02/17 Review of Systems - Review of Systems Comments:: 06/12/17 23:37 CONSTITUTIONAL: Reported: +Generalized weakness. No reported: Fever, Chills, Diaphoresis, Malaise, Loss of Appetite HEENT: No reported: Rhinorrhea, Nasal Congestion, Throat Pain, Throat Swelling, Difficulty Swallowing, Mouth Swelling, Ear Pain, Eye Pain, Visual Changes CARDIOVASCULAR: No reported: Chest Pain, Syncope, Palpitations, Irregular Heart Rate, Peripheral Edema RESPIRATORY: Present: +Mild Shortness of Breath No reported: Cough, SOB with Exertion, Orthopnea, Wheezing, Stridor, Hemoptysis GASTROINTESTINAL: No reported: Abdominal pain, Abdominal Distension, Nausea, Vomiting, Diarrhea, Constipation, Melena, Hematochezia GENITOURINARY: No reported: Dysuria, Frequency, Urgency, Hesitancy, Flank Pain, Genital Pain MUSCULOSKELETAL: No reported: Myalgia, Arthralgia, Joint Swelling, Back pain, Neck Pain SKIN: No reported: Rash, Itching, Pallor HEMEATOLOGIC/IMMUNOLOGIC: No reported: Easy Bleeding, Easy Bruising, Lymphadenopathy, Frequent infections ENDOCRINE: No reported: Unexplained Weight Gain, Unexplained Weight Loss, Heat Intolerance , Cold Intolerance NEUROLOGIC: Present: Lightheadedness No reported: Headache, Focal Weakness, Paresthesias, Vertigo, Unsteady Gait, Seizure, Mental Status Changes, Incontinence PSYCHIATRIC: No reported: Anxiety, Depression <Alo Ferrer - Last Filed: 06/12/17 23:37> *Physical Exam - Vital Signs Last Vital Signs Temp Pulse Resp BP Pulse Ox 97.8 F 77 18 123/59 97 06/12/17 17:58 06/12/17 17:58 06/12/17 17:58 06/12/17 17:58 06/12/17 18:40 <Keny Jones - Last Filed: 06/12/17 21:23> - Vital Signs Last Vital Signs Temp Pulse Resp BP Pulse Ox 97.8 F 77 18 123/59 97 06/12/17 17:58 06/12/17 17:58 06/12/17 17:58 06/12/17 17:58 06/12/17 18:40 - Physical Exam Comments: 06/12/17 23:37 GENERAL: The patient is awake, alert, and fully oriented, Nontoxic - in no acute distress. HEAD: Normocephalic, atraumatic. EYES: extraocular movements intact, sclera anicteric, conjunctiva clear. ENT: Normal voice, Moist mucous membranes. NECK: Normal range of motion, supple LUNGS: Breath sounds equal, clear to auscultation bilaterally. No wheezes, no rhonchi, no rales. HEART: irregularly irregular ABDOMEN: Soft, nontender, normoactive bowel sounds. No guarding, no rebound. . No CVA tenderness EXTREMITIES: Normal range of motion, no edema. No clubbing or cyanosis. No cords, erythema, or tenderness. NEUROLOGICAL: No facial assymetry, Normal speech, PSYCH: Normal mood, normal affect. SKIN: Warm, Dry, normal turgor, <Alo Ferrer - Last Filed: 06/12/17 23:37> Heart Score/ECG Review - ECG Impressions Comment:: 06/12/17 20:58 irregularly irregular rate of 82 imp: afib <Keny Jones - Last Filed: 06/12/17 21:23> ED Treatment Course - LABORATORY CBC & Chemistry Diagram: 06/12/17 18:17 06/12/17 18:17 - ADDITIONAL ORDERS Additional order review: Laboratory Results 06/12/17 06/12/17 06/12/17 18:17 18:17 18:17 PT with INR 12.20 H INR 1.08 Sodium 140 Potassium 4.7 Chloride 105 Carbon Dioxide 28 Anion Gap 7 L BUN 27 H Creatinine 1.7 H Creat Clearance w eGFR 28.56 Random Glucose 133 H Calcium 9.3 Total Bilirubin 0.5 D AST 12 L ALT 12 Alkaline Phosphatase 93 Creatine Kinase 10 L Troponin I < 0.02 Total Protein 6.4 Albumin 3.2 L 06/12/17 18:17 RBC 4.56 MCV 76.2 L D MCHC 31.1 L RDW 36.0 H MPV 9.1 Neutrophils % 69.0 Lymphocytes % 18.6 Monocytes % 9.6 Eosinophils % 1.9 Basophils % 0.9 <Keny Jones - Last Filed: 06/12/17 21:23> - LABORATORY CBC & Chemistry Diagram: 06/12/17 18:17 06/12/17 18:17 - ADDITIONAL ORDERS Additional order review: Laboratory Results 06/12/17 06/12/17 06/12/17 18:17 18:17 18:17 PT with INR 12.20 H INR 1.08 Sodium 140 Potassium 4.7 Chloride 105 Carbon Dioxide 28 Anion Gap 7 L BUN 27 H Creatinine 1.7 H Creat Clearance w eGFR 28.56 Random Glucose 133 H Calcium 9.3 Total Bilirubin 0.5 D AST 12 L ALT 12 Alkaline Phosphatase 93 Creatine Kinase 10 L Troponin I < 0.02 Total Protein 6.4 Albumin 3.2 L 06/12/17 18:17 RBC 4.56 MCV 76.2 L D MCHC 31.1 L RDW 36.0 H MPV 9.1 Neutrophils % 69.0 Lymphocytes % 18.6 Monocytes % 9.6 Eosinophils % 1.9 Basophils % 0.9 - RADIOLOGY Radiograph Interpretation: 06/12/17 21:05 EXAM#: TYPE/EXAM: RESULT: [id number] RAD/CHEST PA LAT INDICATION: Weakness. TECHNIQUE: PA and lateral views of the chest. COMPARISON: 06/01/2017 chest x-ray. FINDINGS: There is subsegmental atelectasis versus scarring in the right lung base. No evidence of acute infiltrate, pulmonary vascular congestion, pleural effusion or pneumothorax. There is stable enlargement of the cardiac silhouette. There is a moderately large hiatal hernia. The thoracic aorta is uncoiled. No abnormal deviation of the trachea. IMPRESSION: No evidence of acute infiltrate, pulmonary vascular congestion or pleural effusion. Stable enlargement of the cardiac silhouette. Moderately large hiatal hernia. Reported By: Yuri Manzo DO <Alo Ferrer - Last Filed: 06/12/17 23:37> Medical Decision Making - Medical Decision Making 06/12/17 20:30 87y F hx of afib (not on a/c due to possible GIB), CHF, anemia, HTN, recent hospitalization for pna s/p thoracentesis, nathalie, presents with complaint of general weakness and fatigue since being discharged last week from the hospital. On exam the has an irregular HR. Her sat is noted to be low normal ddx includes anemia, renal failure, metabolic dernagement, acs, med toxicity, ocult infection pts labs were reviewed no anemia noted nathalie improved with cr of 1.7 currently ua pending cxr wnl w/o signs of infection or effusion consider possible med side effect will dw cadiology regarding dose changes pts sat is a bit low - low 90s will consider observatio nfor the pt consider possible rehab 06/12/17 20:[address] edouard recommends holding her lasix due to nathalie also consider reevaluating her metoprolol/diltiazem 06/12/17 21:[address] Raymundo agreed with observation for further management of nathalie Case discussed in detail with admitting physician including history, physical exam and ancillary studies. Admitting physician has assumed care for the patient, will follow all pending diagnostics and will complete the evaluation and treatment. <Keny Jones - Last Filed: 06/12/17 21:23> - Medical Decision Making 06/12/17 21:[address] Hemphill at 8:30 pm. Case discussed. <Alo Ferrer - Last Filed: 06/12/17 23:37> *DC/Admit/Observation/Transfer - Discharge Dispostion Admit: Yes <Keny Jones - Last Filed: 06/12/17 21:23> - Attestations Scribe Attestion: 06/12/17 21:04 Documentation prepared by Alo Ferrer, acting as medical center director for Keny Jones MD. <Alo Ferrer - Last Filed: 06/12/17 23:37> Diagnosis at time of Disposition: NATHALIE (acute kidney injury), Weakness - Discharge Dispostion Condition at time of disposition: Stable
[2017-06-12] MEDS ORDERED: ACETAMINOPHEN 325 MG TABLET (FP) PO PRN (22:12)
[2017-06-12] MEDS ORDERED: SODIUM CHLORIDE 0.45% 1,000 ML IV SCH (22:15)
--- NOTE | 2017-06-12 22:17 | HP ---
CHIEF COMPLAINT: PCP: Dr Evans HISTORY OF PRESENT ILLNESS: This is an 87 yo F, dcd from [facility] 10 d ago after treatment for new onset a fib, Acute Diastolic Heart Failure and Pleural Effusion s/p thoracentesis (Transudate ), and NATHALIE from lasix, with additional PMH of possible GIB (guaiac + last admission), Fe deficiency anemia, HTN, who presents with due to general weakness and fatigue since being discharged. Patient states that she lives alone and her son comes over occasionally to bring her food. She has had little desire to get out of bed and gets tired very quickly with minimal physical activity. She reports poor appetite but adequate hydration with gatorade. She denies sob, cp, palpitations, dizziness, n/v, cough, le edema. She admits to being depressed since her 3 yrs ago. During last admission, she was diagnosed with depression and started on prozac (11 days ago). She states she takes her medications as prescribed and urinates a lot. Denies melena, hematochezia. until recently, she has been very independent and even drove a car. ER course was notable for: (1)labs (2)ekg a fib 82, no st change from last admission (3)cxr unremarkable. Recent Travel: none PAST MEDICAL HISTORY: as above PAST SURGICAL HISTORY: urethral stent Social History: retired, lives at home alone Smoking: none Alcohol: none Drugs: none Family History: mother CHF, father [place] Allergies cephalexin monohydrate [From Keflex] Allergy (Verified 06/12/17 17:56) HOME MEDICATIONS: Home Medications Medication Instructions Recorded Diltiazem [Cardizem -] 90 mg PO TID #120 tablet 06/02/17 Ferrous Sulfate [Feosol] 325 mg PO BIDWM #60 ud 06/02/17 Fluoxetine HCl [Prozac -] 10 mg PO DAILY #30 capsule 06/02/17 Furosemide [Lasix -] 20 mg PO DAILY #30 tablet 06/02/17 Metoprolol Succinate [Toprol XL -] 25 mg PO BID #60 tab.sr.24h 06/02/17 Pantoprazole Sodium [Protonix -] 40 mg PO DAILY #30 tablet.ec 06/02/17 Potassium Chloride [K-Dur -] 20 meq PO BID #60 tablet.er 06/02/17 REVIEW OF SYSTEMS CONSTITUTIONAL: Absent: fever, chills, diaphoresis HEENT: Absent: rhinorrhea, nasal congestion, throat pain CARDIOVASCULAR: Absent: chest pain, syncope, palpitations, peripheral edema RESPIRATORY: Absent: cough, shortness of breath, dyspnea with exertion, orthopnea, wheezing, stridor, hemoptysis GASTROINTESTINAL: Absent: abdominal pain, abdominal distension, nausea, vomiting, diarrhea, constipation, melena, hematochezia GENITOURINARY: Absent: dysuria MUSCULOSKELETAL: Absent: myalgia, arthralgia SKIN: Absent: rash, itching, pallor HEMATOLOGIC/IMMUNOLOGIC: Absent: easy bleeding, easy bruising ENDOCRINE: Absent: unexplained weight gain, unexplained weight loss, heat intolerance, cold intolerance NEUROLOGIC: Absent: headache, focal weakness or paresthesias PSYCHIATRIC: Absent: suicidal or homicidal ideation, hallucinations. PHYSICAL EXAMINATION Vital Signs - 24 hr 06/12/17 06/12/17 17:58 18:40 Temperature 97.8 F Pulse Rate 77 Respiratory 18 Rate Blood Pressure 123/59 O2 Sat by Pulse 94 L 97 Oximetry (%) GENERAL: Awake, alert, and fully oriented, in no acute distress. HEAD: Normal with no signs of trauma. EYES: Pupils equal, round and reactive to light, extraocular movements intact, sclera anicteric, conjunctiva clear. No lid lag. EARS, NOSE, THROAT: Moist mucous membranes. NECK: supple without JVD, full anterior neck LUNGS: r base ronchi HEART: Regular rate and irregularly irregular rhythm, normal S1 and S2 wrade 2 diastolic murmur ABDOMEN: Soft, nontender, not distended, normoactive bowel sounds, no guarding, no rebound, no masses. MUSCULOSKELETAL: No CVA tenderness. UPPER EXTREMITIES: 2+ pulses, warm, well-perfused. No cyanosis. No clubbing. No peripheral edema. LOWER EXTREMITIES: 2+ pulses, warm, well-perfused. No calf tenderness. No peripheral edema. NEUROLOGICAL: Cranial nerves II-XII intact. Normal speech. strenght 5/5 in all extremities, sensation intact PSYCHIATRIC: Cooperative. Good eye contact. Appropriate mood and affect. SKIN: Warm, dry Laboratory Results - last 24 hr 06/12/17 06/12/17 06/12/17 18:17 18:17 18:17 WBC 6.4 RBC 4.56 Hgb 10.8 Hct 34.7 MCV 76.2 L D MCH 23.7 L MCHC 31.1 L RDW 36.0 H Plt Count 234 D MPV 9.1 Neutrophils % 69.0 Lymphocytes % 18.6 Monocytes % 9.6 Eosinophils % 1.9 Basophils % 0.9 PT with INR 12.20 H INR 1.08 Sodium 140 Potassium 4.7 Chloride 105 Carbon Dioxide 28 Anion Gap 7 L BUN 27 H Creatinine 1.7 H Creat Clearance w eGFR 28.56 Random Glucose 133 H Calcium 9.3 Total Bilirubin 0.5 D AST 12 L ALT 12 Alkaline Phosphatase 93 Creatine Kinase Troponin I Total Protein 6.4 Albumin 3.2 L 06/12/17 18:17 WBC RBC Hgb Hct MCV MCH MCHC RDW Plt Count MPV Neutrophils % Lymphocytes % Monocytes % Eosinophils % Basophils % PT with INR INR Sodium Potassium Chloride Carbon Dioxide Anion Gap BUN Creatinine Creat Clearance w eGFR Random Glucose Calcium Total Bilirubin AST ALT Alkaline Phosphatase Creatine Kinase 10 L Troponin I < 0.02 Total Protein Albumin ASSESSMENT/PLAN: This is an 87 yo F, dcd from [facility] 10 d ago after treatment for new onset a fib, Acute Diastolic Heart Failure and Pleural Effusion s/p thoracentesis (Transudate ), and NATHALIE from lasix, with additional PMH of possible GIB (guaiac + last admission), Fe deficiency anemia, HTN, who presents with due to general weakness and fatigue since being discharged. Severe Fatigue in setting of recent major depressive d/o dx and new onset rapid a fib dx -Will check TFT's; patient also has anterior neck fullness, hyperthyroid would potentially explain both -may be symptom of depression, has been on prozac for only 10 days, has not taken full effect -may be due to BB (can worsent depressive sumptoms) so far metoprolol is titrated to lowest dose 25 bid -may be due to overdiuresis; creat still high persistent NATHALIE -initially due to diuresis with Lasix, which was titrated down to 20 D on d/c -creat was 2 gfr 23 on dc, now 1.7 gfr 28 (baseline 1.2) -will hold lasix and gently hydrate with IV NS @ 50 -renal consult a fib -rate contolled -on cardizem 90 tid, toprol xl 25 bid -cardio consult to adjust meds which may be contributing to fatigue/depressive symptoms HFPEF -currently compensated Depression -no SI -continue prozac Anemia -stable hgb 10.8 FEN NS @W 50 lytes stable Na restricted diet Dispo: obs m/s Problem List - Problem (1) Major depressive disorder Code(s): F32.9 - MAJOR DEPRESSIVE DISORDER, SINGLE EPISODE, UNSPECIFIED (2) NATHALIE (acute kidney injury) Code(s): N17.9 - ACUTE KIDNEY FAILURE, UNSPECIFIED (3) Weakness Code(s): R53.1 - WEAKNESS (4) Congestive heart failure (CHF) Code(s): I50.9 - HEART FAILURE, UNSPECIFIED Qualifiers: Heart failure type: unspecified Heart failure chronicity: acute Qualified Code(s): I50.9 - Heart failure, unspecified (5) Hypertension Code(s): I10 - ESSENTIAL (PRIMARY) HYPERTENSION (6) Microcytic anemia Code(s): D50.9 - IRON DEFICIENCY ANEMIA, UNSPECIFIED (7) Microcytic hypochromic anemia Code(s): D50.9 - IRON DEFICIENCY ANEMIA, UNSPECIFIED (8) New onset a-fib Code(s): I48.91 - UNSPECIFIED ATRIAL FIBRILLATION Visit type - Emergency Visit Emergency Visit: Yes Care time: The patient presented to the Emergency Department on the above date and was hospitalized for further evaluation of their emergent condition. - New Patient This patient is new to me today: Yes Date on this admission: 06/12/17 - Critical Care Critical Care patient: No Hospitalist Screening - Colonoscopy Questionnaire Colonoscopy Questionnaire: Colonoscopy Questionnaire - Patient: 50 - 75 years old and never had a screening colonoscopy: No History of colon or rectal polyps, or CA: No History of IBD, Crohn's disease or UC: No History of abdominal radiation therapy as a child: No - Relative: 1 with colon or rectal CA, or polyps at age 60 or younger: No Colon or rectal CA diagnosed at age 45 or younger: No Multiple relatives with colon or rectal CA: No - Outcome: Screening Result: Negative Screen
[2017-06-12 22:54] LABS: URINE APPEARANCE CLOUDY; URINE BILIRUBIN NEGATIVE (<2.0 mg/dL); URINE BLOOD NEGATIVE (NEGATIVE); URINE COLOR AMBER; URINE GLUCOSE (UA) NEGATIVE (NEGATIVE); URINE KETONE NEGATIVE (NEGATIVE); URINE NITRITE NEGATIVE (NEGATIVE)
[2017-06-12 22:55] LABS: URINE LEUK ESTERASE 3+ (NEGATIVE); URINE PROTEIN 1+ (NEGATIVE)
[2017-06-12 22:56] LABS: CALCIUM OXALATE CRYSTALS RARE /hpf (NONE SEEN); EPI CELLS RARE /HPF (FEW); URINE BACTERIA FEW /hpf (NONE SEEN); URINE HYALINE CAST 34 /lpf; URINE MUCUS MANY
--- NOTE | 2017-06-13 02:33 | PN ---
Teaching Attending Note Name of Resident: Amelia Peralta ATTENDING PHYSICIAN STATEMENT I saw and evaluated the patient. I reviewed the resident's note and discussed the case with the resident. I agree with the resident's findings and plan as documented. SUBJECTIVE: OBJECTIVE: aaox3 s1 and s2 irregularlly irregular lungs CTA no abdominal distention no edema ASSESSMENT AND PLAN: this is an 87 y/o female presented with fatigue and weakness that has happened since she was d/c from the hospital 10 days ago. patient stated she was doing well until they have started her on these new medication. she has a history of depression and she was also started on fluoxitine for it. patient stated that her mood is better, she does not feel suicidal, she is doing better from that aspect. she denied any SOB, TOUSSAINT, or swelling of the lower ext, however she is complaining of constipation recently ever since she was d/c from the hospital NATHALIE - patient was d/c on Cr. 2.0 which has been improving fatigue: patient was recently started on metoprolol and diltizem, 2 medications known to have effect on the patient energy, however she was started for the atrial fibrillation will consult cardiology in the morning for medical optimization fluxetine can also cause fatigue for the patient will consider phychiatry for the recommendation of a different medication c/w home medication
[2017-06-13] MEDS: dilTIAZem HCL 30 MG TABLET (FP) PO SCH ×4 (05:14→21:49)
[2017-06-13 08:34] LABS: HEMATOCRIT 31.6 % (32.4-45.2); HEMOGLOBIN 9.7 GM/dL (10.7-15.3); MCH 23.6 pg (25.7-33.7); MCHC 30.8 g/dl (32.0-36.0); MEAN CELL VOLUME 76.6 fl (80-96); MEAN PLT VOLUME 8.8 fl (7.5-11.1); PLATELET COUNT 178 K/MM3 (134-434); RBC 4.12 M/mm3 (3.60-5.2); RDW 35.5 % (11.6-15.6); WHITE BLOOD COUNT 5.8 K/mm3 (4.0-10.0)
[2017-06-13 09:03] LABS: ANION GAP 5 (8-16); BLOOD UREA NITROGEN 28 mg/dL (7-18); CALCIUM 8.9 mg/dL (8.5-10.1); CHLORIDE 107 mmol/L (98-107); CO2 28 mmol/L (21-32); CREATININE 1.6 mg/dL (0.55-1.02); GLUCOSE,RANDOM 105 mg/dL (74-106); MAGNESIUM 2.1 mg/dL (1.8-2.4); PHOSPHOROUS 3.8 mg/dL (2.5-4.9); POTASSIUM 4.6 mmol/L (3.5-5.1); SODIUM 140 mmol/L (136-145)
[2017-06-13 09:49] LABS: CHOLESTEROL 144 mg/dL (50-200); HDL CHOLESTEROL 39 mg/dL (40-60); LDL CHOLESTEROL (ONLY SJRH) 92 mg/dL (5-100); TRIGLYCERIDES 131 mg/dL (35-160)
[2017-06-13] MEDS ORDERED: PT OWN MED DRAWER 7, Y5N ONE (09:57)
[2017-06-13] MEDS ORDERED: metoPROLOL SUCCINATE 25 MG TAB.SR.24H (FP) PO SCH (10:00)
[2017-06-13] MEDS: PANTOPRAZOLE 40 MG TABLET (FP) PO SCH (10:05)
[2017-06-13] MEDS: FERROUS SO4 325 MG TABLET (FP) PO SCH ×2 (10:05→17:04)
[2017-06-13] MEDS: FLUoxetine HCL 10 MG CAPSULE (FP) PO SCH ×2 (10:05→17:05)
--- NOTE | 2017-06-13 17:57 | CON.NEP ---
Consult Consult Specialty:: nephrology Referred by:: dr andres loya Reason for Consultation:: azotemia - History of Present Illness Chief Complaint: fatigue History of Present Illness: patient readmitted with fatigue noted with azotemia renal failure is chronic based on review of prior labs recently discharged from this hosp dx: new onset a fib, Acute Diastolic Heart Failure and Pleural Effusion s/p thoracentesis (Transudate), and NATHALIE from lasix, PMH of possible GIB (guaiac + last admission), Fe deficiency anemia, HTN, general weakness and fatigue since being discharged. -has little desire to get out of bed and gets tired very quickly with minimal physical activity. -poor appetite but adequate hydration with gatorade. - Past Medical History Cardio/Vascular: Yes: HTN Renal/: Yes: Renal Calculi ...: No Psych: Yes: Anxiety, Depression - Past Surgical History Past Surgical History: Yes: Hysterectomy, Tonsillectomy - Alcohol/Substance Use Hx Alcohol Use: No - Smoking History Smoking history: Never smoked Have you smoked in the past 12 months: No Aproximately how many cigarettes per day: 0 - Social History Usual Living Arrangement: Alone Home Medications - Allergies Allergies/Adverse Reactions: Allergies Allergy/AdvReac Type Severity Reaction Status Date / Time cephalexin monohydrate Allergy Verified 06/12/17 17:56 [From Keflex] - Home Medications Home Medications: Ambulatory Orders Diltiazem [Cardizem -] 90 mg PO TID #120 tablet 06/02/17 Ferrous Sulfate [Feosol] 325 mg PO BIDWM #60 ud 06/02/17 Fluoxetine HCl [Prozac -] 10 mg PO DAILY #30 capsule 06/02/17 Furosemide [Lasix -] 20 mg PO DAILY #30 tablet 06/02/17 Metoprolol Succinate [Toprol XL -] 25 mg PO BID #60 tab.sr.24h 06/02/17 Pantoprazole Sodium [Protonix -] 40 mg PO DAILY #30 tablet.ec 06/02/17 Potassium Chloride [K-Dur -] 20 meq PO BID #60 tablet.er 06/02/17 Family Disease History - Family Disease History Family Disease History: Heart Disease: Mother (CHF in her 60s) Nephrology Consult - Height Height: 5 ft 6 in - Weight Weight: 170 lb - BMI Body Mass Index (BMI): 27.4 - Lab Results CBC,BMP: CBC, BMP 06/13/17 07:00 06/13/17 07:00 Anion Gap: Anion Gap Anion Gap 5 (8-16) L 06/13/17 07:00 - Physical Examination Vital Signs: Vital Signs Temperature 97.9 F 06/13/17 14:45 Pulse Rate 92 H 06/13/17 14:45 Respiratory Rate 22 06/13/17 14:45 Blood Pressure 107/72 06/13/17 14:45 O2 Sat by Pulse Oximetry (%) 94 L 06/13/17 09:00 Constitutional: Yes: Well Nourished, No Distress, Calm Assessment/Plan chronic kidney disease fluctuating azotemia fatgue and weakness being worked up- probably depression plan- monitor renal function ensure hydration
--- NOTE | 2017-06-13 18:07 | EKG ---
Test Reason : Blood Pressure : / mmHG Vent. Rate : 082 BPM Atrial Rate : 234 BPM P-R Int : 000 ms QRS Dur : 096 ms QT Int : 362 ms P-R-T Axes : 000 029 -29 degrees QTc Int : 422 ms ATRIAL FIBRILLATION RSR' OR QR PATTERN IN V1 SUGGESTS RIGHT VENTRICULAR CONDUCTION DELAY ABNORMAL ECG Confirmed by MD SARBJIT, CONSUELO ([id number]) on 06/13/2017 6:07:14 PM Referred By: Confirmed By:CONSUELO SCHAFFER MD
--- NOTE | 2017-06-13 18:22 | CON.CARD ---
Cardiology Consult (text) - Consultation Consultation Note: 87 yo with h/o recent diagnosis of afib, htn on norvasc, anemia and prior ureteral stent p/w fatigue Ambulatory Orders Diltiazem [Cardizem -] 90 mg PO TID #120 tablet 06/02/17 Ferrous Sulfate [Feosol] 325 mg PO BIDWM #60 ud 06/02/17 Fluoxetine HCl [Prozac -] 10 mg PO DAILY #30 capsule 06/02/17 Furosemide [Lasix -] 20 mg PO DAILY #30 tablet 06/02/17 Metoprolol Succinate [Toprol XL -] 25 mg PO BID #60 tab.sr.24h 06/02/17 Pantoprazole Sodium [Protonix -] 40 mg PO DAILY #30 tablet.ec 06/02/17 Potassium Chloride [K-Dur -] 20 meq PO BID #60 tablet.er 06/02/17 Current Medications Acetaminophen (Tylenol -) 650 mg PO Q4H PRN PRN Reason: PAIN Last Admin: 06/13/17 05:14 Dose: 650 mg Diltiazem HCl (Cardizem -) 90 mg PO TID [facility] Last Admin: 06/13/17 15:00 Dose: 90 mg Ferrous Sulfate (Feosol -) 325 mg PO BIDWM [facility] Last Admin: 06/13/17 17:04 Dose: 325 mg Fluoxetine HCl (Prozac -) 10 mg PO DAILY [facility] Last Admin: 06/13/17 17:05 Dose: 10 mg Sodium Chloride (1/2 Normal Saline) 1,000 mls @ 50 mls/hr IV ASDIR [facility] Stop: 06/13/17 22:14 Last Admin: 06/13/17 01:07 Dose: 50 mls/hr Metoprolol Succinate (Toprol Xl -) 25 mg PO BID [facility] Last Admin: 06/13/17 10:05 Dose: 25 mg Pantoprazole Sodium (Protonix -) 40 mg PO DAILY [facility] Last Admin: 06/13/17 10:05 Dose: 40 mg Vital Signs - 24 hr 06/12/17 06/12/17 06/13/17 18:40 23:55 02:00 Temperature 97.5 F L 98.9 F Pulse Rate 92 H Pulse Rate [ 99 H Apical] Respiratory 18 20 Rate Blood Pressure 108/60 Blood Pressure 94/64 [Left Arm] O2 Sat by Pulse 97 95 95 Oximetry (%) 03/31/18 03/31/18 03/31/18 07:06 09:00 09:41 Temperature 98.0 F 97.7 F Pulse Rate 94 H 101 H Pulse Rate [ Apical] Respiratory 17 18 Rate Blood Pressure 101/56 107/74 Blood Pressure [Left Arm] O2 Sat by Pulse 94 L Oximetry (%) 06/13/17 14:45 Temperature 97.9 F Pulse Rate 92 H Pulse Rate [ Apical] Respiratory 22 Rate Blood Pressure 107/72 Blood Pressure [Left Arm] O2 Sat by Pulse Oximetry (%) Intake & Output 06/11/17 06/12/17 06/13/17 06/14/17 07:59 07:59 07:59 07:59 Intake Total 450 350 Balance 450 350 Weight 170 lb 170 lb CBC, BMP 06/13/17 07:00 06/13/17 07:00 - holding lasix as above. - bp running on low end. may be contributing to symptoms. will stop metoprolol and slightly uptitrate diltiazem dose to prevent recurrence of rvr. - orthostatics in am. - infectoius work up per pmd full note to follow.
--- NOTE | 2017-06-13 19:32 | PN ---
Physical Exam: SUBJECTIVE: Patient seen and examined Patient is comfortable, with no acute distress, feels little dizzy but better than yesterday. OBJECTIVE: Vital Signs Temperature 97.5 F L 06/13/17 18:00 Pulse Rate 80 06/13/17 18:00 Respiratory Rate 20 06/13/17 18:00 Blood Pressure 114/69 06/13/17 18:00 O2 Sat by Pulse Oximetry (%) 94 L 06/13/17 09:00 GENERAL: The patient is awake, alert, and fully oriented, very nice lady. HEAD: Normal with no signs of trauma. EYES: PERRL, extraocular movements intact, sclera anicteric, conjunctiva clear. ENT: Ears normal, oropharynx clear without exudates, moist mucous membranes. NECK: Trachea midline, full range of motion, supple. LUNGS: Breath sounds equal, clear to auscultation bilaterally, no wheezes, no crackles, no accessory muscle use. HEART: Regular rate and rhythm, S1, S2 positve, YUE 3/6 ABDOMEN: Soft, nontender, nondistended, normoactive bowel sounds, no guarding, no rebound, no hepatosplenomegaly, no masses appreciated EXTREMITIES: 2+ pulses, warm, well-perfused, no edema. NEUROLOGICAL: Cranial nerves II through XII grossly intact. Normal speech, gait is stable . PSYCH: Normal mood, normal affect. SKIN: Warm, dry, normal turgor, no rashes or lesions noted CBCD WBC 5.8 K/mm3 (4.0-10.0) 06/13/17 07:00 RBC 4.12 M/mm3 (3.60-5.2) 06/13/17 07:00 Hgb 9.7 GM/dL (10.7-15.3) L D 06/13/17 07:00 Hct 31.6 % (32.4-45.2) L 06/13/17 07:00 MCV 76.6 fl (80-96) L 06/13/17 07:00 MCHC 30.8 g/dl (32.0-36.0) L 06/13/17 07:00 RDW 35.5 % (11.6-15.6) H 06/13/17 07:00 Plt Count 178 K/MM3 (134-434) D 06/13/17 07:00 MPV 8.8 fl (7.5-11.1) 06/13/17 07:00 CMP Sodium 140 mmol/L (136-145) 06/13/17 07:00 Potassium 4.6 mmol/L (3.5-5.1) 06/13/17 07:00 Chloride 107 mmol/L (98-107) 06/13/17 07:00 Carbon Dioxide 28 mmol/L (21-32) 06/13/17 07:00 Anion Gap 5 (8-16) L 06/13/17 07:00 BUN 28 mg/dL (7-18) H 06/13/17 07:00 Creatinine 1.6 mg/dL (0.55-1.02) H 06/13/17 07:00 Creat Clearance w eGFR 28.56 (>60) 06/12/17 18:17 Random Glucose 105 mg/dL (74-106) 06/13/17 07:00 Calcium 8.9 mg/dL (8.5-10.1) 06/13/17 07:00 Total Bilirubin 0.5 mg/dL (0.2-1.0) D 06/12/17 18:17 AST 12 U/L (15-37) L 06/12/17 18:17 ALT 12 U/L (12-78) 06/12/17 18:17 Alkaline Phosphatase 93 U/L (45-117) 06/12/17 18:17 Total Protein 6.4 g/dl (6.4-8.2) 06/12/17 18:17 Albumin 3.2 g/dl (3.4-5.0) L 06/12/17 18:17 CARDIAC ENZYMES Creatine Kinase 10 IU/L (26-192) L 06/12/17 18:17 Troponin I < 0.02 ng/ml (0.00-0.05) 06/12/17 18:17 Current Medications Generic Name Dose Route Start Last Admin Trade Name Freq PRN Reason Stop Dose Admin Acetaminophen 650 mg 06/12/17 22:12 06/13/17 05:14 Tylenol - PO 650 mg Q4H PRN Administration PAIN Diltiazem HCl 90 mg 06/13/17 18:30 06/13/17 18:32 Cardizem - PO Not Given TID TRES Ferrous Sulfate 325 mg 06/13/17 08:00 06/13/17 17:04 Feosol - PO 325 mg BIDWM TRES Administration Fluoxetine HCl 10 mg 06/13/17 10:00 06/13/17 17:05 Prozac - PO 10 mg DAILY TRES Administration Sodium Chloride 1,000 mls @ 50 mls/hr 06/12/17 22:15 06/13/17 01:07 1/2 Normal Saline IV 06/13/17 22:14 50 mls/hr ASDIR TRES Administration Pantoprazole Sodium 40 mg 06/13/17 10:00 06/13/17 10:05 Protonix - PO 40 mg DAILY TRES Administration Home Medications Medication Instructions Recorded Diltiazem [Cardizem -] 90 mg PO TID #120 tablet 06/02/17 Ferrous Sulfate [Feosol] 325 mg PO BIDWM #60 ud 06/02/17 Fluoxetine HCl [Prozac -] 10 mg PO DAILY #30 capsule 06/02/17 Furosemide [Lasix -] 20 mg PO DAILY #30 tablet 06/02/17 Metoprolol Succinate [Toprol XL -] 25 mg PO BID #60 tab.sr.24h 06/02/17 Pantoprazole Sodium [Protonix -] 40 mg PO DAILY #30 tablet.ec 06/02/17 Potassium Chloride [K-Dur -] 20 meq PO BID #60 tablet.er 06/02/17 ASSESSMENT AND PLAN: This is an 87 y/o female presented with fatigue and weakness that has happened since she was d/c from the hospital 10 days ago. patient stated she was doing well until they have started her on these new medication. she has a history of depression and she was also started on fluoxitine for it. patient stated that her mood is better, she does not feel suicidal, she is doing better from that aspect. she denied any SOB, TOUSSAINT, or swelling of the lower ext, however she is complaining of constipation recently ever since she was d/c from the hospital #NATHALIE - improving 2.0-->1.6 today # fatigue: most likely due to metoprolol Cardio. on the case. # A-fib rate is controlled. DVT Px: heparin Visit type - Emergency Visit Emergency Visit: Yes ED Registration Date: 06/13/17 Care time: The patient presented to the Emergency Department on the above date and was hospitalized for further evaluation of their emergent condition. - New Patient This patient is new to me today: No - Critical Care Critical Care patient: No - Discharge Referral Referred to [facility] Med P.C[facility] No
[2017-06-14] MEDS: dilTIAZem HCL 30 MG TABLET (FP) PO SCH ×2 (06:09→14:12)
[2017-06-14 08:20] LABS: HEMATOCRIT 30.9 % (32.4-45.2); HEMOGLOBIN 9.5 GM/dL (10.7-15.3); MCH 23.6 pg (25.7-33.7); MCHC 30.9 g/dl (32.0-36.0); MEAN CELL VOLUME 76.6 fl (80-96); MEAN PLT VOLUME 8.4 fl (7.5-11.1); PLATELET COUNT 176 K/MM3 (134-434); RBC 4.03 M/mm3 (3.60-5.2); RDW 35.1 % (11.6-15.6); WHITE BLOOD COUNT 4.7 K/mm3 (4.0-10.0)
[2017-06-14 08:46] LABS: ALBUMIN 2.6 g/dl (3.4-5.0); BLOOD UREA NITROGEN 26 mg/dL (7-18); CO2 26 mmol/L (21-32); GLUCOSE,RANDOM 99 mg/dL (74-106)
[2017-06-14 09:04] LABS: ALK PHOS 84 U/L (45-117); ANION GAP 8 (8-16); BILIRUBIN,TOTAL 0.4 mg/dL (0.2-1.0); CHLORIDE 107 mmol/L (98-107); CREATININE 1.4 mg/dL (0.55-1.02); POTASSIUM 4.3 mmol/L (3.5-5.1); SGOT/AST 11 U/L (15-37); SGPT/ALT 15 U/L (12-78); SODIUM 141 mmol/L (136-145); TOT PROT 5.3 g/dl (6.4-8.2)
[2017-06-14] MEDS ORDERED: PT OWN MED DRAWER 7, Y5N ONE (09:35)
[2017-06-14] MEDS: FERROUS SO4 325 MG TABLET (FP) PO SCH (09:38)
[2017-06-14] MEDS: PANTOPRAZOLE 40 MG TABLET (FP) PO SCH (09:38)
[2017-06-14] MEDS: FLUoxetine HCL 10 MG CAPSULE (FP) PO SCH (14:12)
[2017-06-14 15:44] VITALS: BP 123/59; PULSE 98; TEMP 98.1
--- NOTE | 2017-06-14 19:12 | DS ---
Physical Exam: SUBJECTIVE: Patient seen and examined at bedside. The patient has no new complaints. No events overnight. OBJECTIVE: Vital Signs Period Temp Pulse Resp BP Sys/Marino Pulse Ox Last 24 Hr 97.5 F-98.8 F 72-99 20- 107-123/50-70 93-94 PHYSICAL EXAM GENERAL: The patient is awake, alert, and fully oriented, in no acute distress. HEAD: Normal with no signs of trauma. NECK: Trachea midline, full range of motion, supple. LUNGS: Breath sounds equal, clear to auscultation bilaterally, no wheezes, no crackles, no accessory muscle use. HEART: Regular rate and rhythm, S1, S2 without murmur, rub or gallop. ABDOMEN: Soft, nontender, nondistended, normoactive bowel sounds, no guarding, no rebound, no hepatosplenomegaly, no masses. EXTREMITIES: 2+ pulses, warm, well-perfused, no edema. NEUROLOGICAL: Cranial nerves II through X grossly intact. Normal speech, gait not observed. PSYCH: Normal mood, normal affect. SKIN: Warm, dry, normal turgor, no rashes or lesions noted. LABS Laboratory Results - last 24 hr 06/14/17 06/14/17 07:15 07:15 WBC 4.7 RBC 4.03 Hgb 9.5 L Hct 30.9 L MCV 76.6 L MCH 23.6 L MCHC 30.9 L RDW 35.1 H Plt Count 176 MPV 8.4 Sodium 141 Potassium 4.3 Chloride 107 Carbon Dioxide 26 Anion Gap 8 BUN 26 H Creatinine 1.4 H Creat Clearance w eGFR 35.74 Random Glucose 99 Calcium 9.0 Total Bilirubin 0.4 AST 11 L ALT 15 Alkaline Phosphatase 84 Total Protein 5.3 L Albumin 2.6 L HOSPITAL COURSE: Date of Admission:06/13/17 The patient is an 87 yo f w/ PMH dCHF, afib, Fe defiency anemia, HTN who was recently discharged from [facility] who came into the ED c/o generalized fatigue and weakness since her discharge on 06/02. Patient had been diagnosed with depression on her previous admission and had only been taking Prozac for 10 days before presenting to the ED again. In the ED, she was found to have persistent NATHALIE from last admission. A CXR was WNL, an EKG was unchanged from last admission. The patient was admitted for further workup of her extreme fatigue and her NATHALIE. Cardiology was consulted. Nephrology was consulted. The patient was treated with fluids and her home medications. Cardiology changed the doses of these medications, suspecting beta blockade as part of the cause of her symptoms. The patient improved after the medications were changed. Nephrology attributed the NATHALIE to diuresis with Lasix. Her Lasix was discontinued and she was discharged home on the new doses of her medications. Her Toprol XL was lowered from 25mg BID to 25mg daily and her Cardizem was increased from 90mg TID to 180mg BID. She was encouraged to continue taking her Prozac. The patient was advised to follow up with her primary care physician as well as with a wind plant manager within one week of discharge home. During her admission, she was found to have a persistent microcytic anemia with slow decline in her Hb. The patient was advised that she should get a routine screening colonoscopy and given a referral to a national investigative producer. Date of Discharge: 06/14/17 Minutes to complete discharge: 43 <Werner Mkie - Last Filed: 06/14/17 20:02> Physical Exam: Patient is seen and examined. Agree with the resident's note. Patient's Toprol XL decreased to 25mg po daily, and cardizem 180mg po bid. Patient is feeling better, will follow up with wind plant manager in a week period. <Dave Turner - Last Filed: 06/15/17 15:23> Discharge Summary Reason For Visit: ACUTE KIDNEY INJURY/WEAKNESS - Home Medications Comprehensive Discharge Medication List: Ambulatory Orders Ferrous Sulfate [Feosol] 325 mg PO BIDWM #60 ud 06/02/17 Fluoxetine HCl [Prozac -] 10 mg PO DAILY #30 capsule 06/02/17 Pantoprazole Sodium [Protonix -] 40 mg PO DAILY #30 tablet.ec 06/02/17 Potassium Chloride [K-Dur -] 20 meq PO BID #60 tablet.er 06/02/17 Diltiazem [Cardizem -] 180 mg PO BID #180 tablet 06/14/17 Metoprolol Succinate [Toprol XL -] 25 mg PO DAILY #60 tab.sr.24h 06/14/17 <Werner Mike - Last Filed: 06/14/17 20:02> - Home Medications Comprehensive Discharge Medication List: Ambulatory Orders Ferrous Sulfate [Feosol] 325 mg PO BIDWM #60 ud 06/02/17 Fluoxetine HCl [Prozac -] 10 mg PO DAILY #30 capsule 06/02/17 Pantoprazole Sodium [Protonix -] 40 mg PO DAILY #30 tablet.ec 06/02/17 Potassium Chloride [K-Dur -] 20 meq PO BID #60 tablet.er 06/02/17 Diltiazem [Cardizem -] 180 mg PO BID #180 tablet 06/14/17 Metoprolol Succinate [Toprol XL -] 25 mg PO DAILY #60 tab.sr.24h 06/14/17 <Dave Turner - Last Filed: 06/15/17 15:23> Condition: Improved - Instructions Diet, Activity, Other Instructions: You were admitted for the treatment of your fatigue and to monitor your kidneys. We have changed some of your medications. Please STOP taking your water pill (Lasix, Furosemide) We have changed the dose of your metoprolol (Toprol XL) from 25mg TWICE per day to 25mg ONCE per day. We have changed the dose of your diltiazem (Cardizem) from 90mg THREE TIMES per day to 180mg TWICE per day. You should follow up with your primary care doctor, Dr. Evans, within one week of going home. You should also follow up with your Shoulder Sawyer within one week of going home. Information for Dr. Hemphill (cardiology) has been included in your discharge paperwork. While you were in the hospital, we noticed that you were anemic. You should follow up with a GI specialist to get a colonoscopy. Information for Dr. Olivera has been included in your discharge paperwork. Please call to make an appointment. If you begin to experience chest pain, SOB, or if any of your symptoms get worse , please call your doctor or return to the emergency department. Referrals: Malinda Mullen MD [Staff Physician] - 1 Week Arsen Evans MD [Primary Care Provider] - 1 Week Qasim Olivera MD [Staff Physician] - Disposition: HOME This patient is new to me today: Yes Date on this admission: 06/14/17 Emergency Visit: Yes ED Registration Date: 06/13/17 Care time: The patient presented to the Emergency Department on the above date and was hospitalized for further evaluation of their emergent condition. Critical Care patient: No - Discharge Referral Referred to [facility] Yes Physician Referral: Arsen Evans MD (Int Med) <Werner Mike - Last Filed: 06/14/17 20:02>
[2017-06-15 06:06] LABS: SERUM IRON SATURATION 7 % (15-55); TOTAL IRON BINDING CAPACITY 270 ug/dL (250-450); UIBC 252 ug/dL (118-369)
[2017-06-16 06:17] LABS: TRANSFERRIN 242 mg/dL (200-370)
== END 2017-06-14 15:18 | disposition home or self-care (01) | DRG 683 ==
LOC: JER 17:54 → INTOOBSV 21:24 → JERBED 21:24 → UNDOADMIN 21:27 → JERBED 21:27 → OBSVTOIN 06-13 01:51 → J5S 06-13 02:03
PROVIDERS: ADMIT Internal Medicine; ATTEND Internal Medicine
DX: N17.9 Acute kidney failure, unspecified (principal); I50.30 Unspecified diastolic (congestive) heart failure; J98.11 Atelectasis; I48.91 Unspecified atrial fibrillation; I11.0 Hypertensive heart disease with heart failure; D50.9 Iron deficiency anemia, unspecified; R53.83 Other fatigue; F41.8 Other specified anxiety disorders
CPT/HCPCS: 36415; 71046-TC-FY; 80048; 80053; 80061; 81003; 81015; 82550; 83036; 83540; 83550; 83721; 83735; 84100; 84443; 84466; 84484; 85025; 85027; 85610; 87086; 93005; 93010; 99284-25; G0378